=== PATIENT | female | born 1970 | race Caucasian/White ===

== ENCOUNTER 2018-03-09 11:19 | Outpatient (RCR) | payer MEDICAID, SELFPAY | END 2018-03-24 23:59 | LOC: NS 11:19 | PROVIDERS: Family Provider Internal Medicine; PCP Internal Medicine; Visit Provider Internal Medicine | DX: E66.9 Obesity, unspecified (principal); Z68.41 Body mass index [BMI] 40.0-44.9, adult; Z71.3 Dietary counseling and surveillance ==

== ENCOUNTER 2018-04-18 13:00 | Outpatient (RCR) | payer MEDICAID, SELFPAY | END 2018-04-18 23:59 | LOC: NS 13:00 | PROVIDERS: Family Provider Internal Medicine; PCP Internal Medicine; Visit Provider Internal Medicine | DX: E66.9 Obesity, unspecified (principal); Z68.41 Body mass index [BMI] 40.0-44.9, adult; Z71.3 Dietary counseling and surveillance | CPT/HCPCS: 97802 ==

== ENCOUNTER 2018-05-02 08:24 | Outpatient (RCR) | payer MEDICAID, SELFPAY | END 2018-05-24 23:59 | LOC: NS 08:24 | PROVIDERS: Family Provider Internal Medicine; PCP Internal Medicine; Visit Provider Internal Medicine | DX: E66.9 Obesity, unspecified (principal); Z68.41 Body mass index [BMI] 40.0-44.9, adult; Z71.3 Dietary counseling and surveillance ==

== ENCOUNTER 2018-05-31 13:13 | Emergency (ER) | payer MEDICAID, SELFPAY ==
[2018-05-31 13:16] VITALS: BP 151/116; PULSE 91; RESP 16; TEMP 36.6; O2SAT 94; BMI 40.6
--- NOTE | 2018-05-31 13:32 | ED.VISSUMM ---
- ER Visit Summary Date of Service: 05/31/18 Chief Complaint: Right lower leg injury History of Present Illness: The patient is a 48 F history of prior breast CA 6 years ago had a lobectomy has had no recurrence. History of hypertension and anxiety. Patient states she was working in her daughter's room on Tuesday she did not see and she stepped into the open floor vent and injured her right lower leg. She said she had bruising since that time. Today she went to the urgent care they were concerned that there might be a DVT and sent her over to the emergency department for further evaluation. Physical Examination: Well-appearing middle-age female. Initial blood pressure 151/116 otherwise vital signs stable and afebrile. H EENT exam unremarkable atraumatic. Neck nontender. Normal range of motion. Lungs clear to auscultation bilaterally. Heart regular rhythm no murmur. Rate about 90. Chest wall nontender. Abdomen soft nontender. Pelvic girdle intact. She can move all 4 extremities. Neurovascular intact. There is no gross bony deformities. Medial and inferior to her right knee down to about mid calf she has bruising. Mild tenderness. No bony deformity. No bony tenderness. She has full flexion-extension of her right hip, right knee, right ankle and foot. Dorsi and plantar flexion is intact. Achilles tendon is intact. DP pulses intact. She has normal sensation and motor strength in her right foot. There are no cords. There is no edema past or distal to the bruising. Neurologically she is awake and alert. Back is nontender. Test Results: None Emergency Department Course and Treatment: Historically and clinically this is a hematoma from an injury. I do not feel there is any findings consistent with a DVT nor I feel that a noninvasive study needs to be done. Patient has no bony tenderness is able to walk on it I offered but she deferred x-rays at this time. Treatment Plan: Ice and elevate it. Motrin for pain and swelling. Follow-up if not resolving. Disposition: Discharge Impression: Acute right lower extremity injury from a fall with soft tissue hematoma This note was generated with [employer] dictation software. It may contain incorrect words, spelling, and punctuation that were not noted in review of the chart prior to signing ED Disposition - Plan for ED Patient: Chief Complaint: Lower Extremity Injury Referrals: Tamy Garcias MD [Primary Care Provider] -
--- NOTE | 2018-05-31 13:35 | ED.DEP ---
ED Disposition - Plan for ED Patient: Disposition: Home or Assisted Living Chief Complaint: Lower Extremity Injury Instructions: ED Contusion Lower Ext, ED Hematoma Prescriptions: Naproxen [Naprosyn] 500 mg PO BID PRN PRN #20 tab PRN Reason: Pain Referrals: Tamy Garcias MD [Primary Care Provider] - As Needed Additional Instructions: Ice and elevate right leg to decrease the swelling. Over the next 2 weeks today bruising should start resolving. The swelling and bruising should improve if it is not or is looking a lot worse return and we can always get an ultrasound of your leg.
== END 2018-05-31 14:07 | disposition home or self-care (01) ==
PROVIDERS: Emergency Provider Emergency Medicine; Family Provider Internal Medicine; PCP Internal Medicine
DX: S80.11XA Contusion of right lower leg, initial encounter (principal); W17.89XA Other fall from one level to another, initial encounter; Y93.9 Activity, unspecified; Y92.003 Bedroom of unspecified non-institutional (private) residence as the place of occurrence of the external cause; Y99.9 Unspecified external cause status; I10 Essential (primary) hypertension; K21.9 Gastro-esophageal reflux disease without esophagitis; F32.9 Major depressive disorder, single episode, unspecified; F41.9 Anxiety disorder, unspecified; Z79.899 Other long term (current) drug therapy; Z85.3 Personal history of malignant neoplasm of breast
CPT/HCPCS: 99282

== ENCOUNTER → 2018-06-21 15:54 | Outpatient (CLI) | payer MEDICAID, SELFPAY ==
--- OUTSIDE RECORDS SUMMARY | 2018-08-17 02:16 | XMS RPT_ITS ---
:1970 Author Organization OHIP Care Team Providers Name Role Phone CATHY FLORES (CONDENSER TESTER) Attending Unavailable CATHY FLORES (CONDENSER TESTER) Referring Unavailable JESSICA GARCIAS Attending Unavailable CATHY FLORES (CONDENSER TESTER) Referring Unavailable PEDRO LANDIS (INVESTOR RELATIONS COORDINATOR) Attending Unavailable JESSICA GARCIAS Attending Unavailable CATHY FLORES (CONDENSER TESTER) Attending Unavailable CATHY FLORES (CONDENSER TESTER) Referring Unavailable CATHY FLORES (CONDENSER TESTER) Referring Unavailable Cathy Flores PATIENT REGISTRATION REP-C Attending Unavailable Cathy Flores PATIENT REGISTRATION REP-C Referring Unavailable Talampas, Jessica Primary Care Unavailable Talampas, Jessica Attending Unavailable Talampas, Jessica Primary Care Unavailable Talampas, Jessica Attending Unavailable Talampas, Jessica Primary Care Unavailable Talampas, Jessica Attending Unavailable Talampas, Jessica Primary Care Unavailable Talampas, Jessica Attending Unavailable Talampas, Jessica Primary Care Unavailable Talampas, Jessica Primary Care Unavailable Sathya Cole Attending Unavailable Dia, Americo Attending Unavailable Dia, Americo Referring Unavailable Talampas, Jessica Primary Care Unavailable PROBLEMS PROBLEMS DATE TYPE CONDITION / CODE ATTENDING STATUS SOURCE 05/25/2018 Unknown E66.9 - Obesity, Talampas, Jessica Active Cr unspecified / Community E66.9(ICD-10) Hospital Repository 02/28/2018 Active Lumbago with NA Active [facility] sciatica, left [place] side / Repository M54.42(ICD-10) 09/21/2016 Active Malignant NA Active [facility] neoplasm of [place] unspecified site Repository of right female breast / C50.911(ICD-10) 12/08/2017 Active Encounter for NA Active [facility] screening [place] mammogram for Repository malignant neoplasm of breast / Z12.31(ICD-10) 07/28/2017 Active Unknown / FLORES, Active [facility] UNK(Unknown) CATHY (CONDENSER TESTER) [place] Repository PROCEDURES PROCEDURES No Procedure Records FoundRESULTS RESULTS Observed: 06/21/2018 Status: F Source: [place] CULTURE, THROAT 9:55 AM [facility] REPOSITORY Culture, Throat Mixed normal throat nolan. No Haemophilus, Streptococcus pneumoniae, beta-hemolytic Streptococcus or Staphylococcus aureus isolated. Performed By: #### M100.1000 #### [facility] [address] [place], [address] EMERGENCY DEPARTMENT Observed: 05/31/2018 Status: F Source: CR SUMMARY 3:07 PM [facility] REPOSITORY [facility] Medical Records Department [address] [place] [address] Emergency Department Summary 05/31/18 1332 MR#: [id number] Acct: [id number] Name: TAMEKA BAI Rep #: [id number] : 1970 48 From: Sathya Cole MD PCP: Jessica Garcias MD Status: DEP ER - ER Visit Summary Date of Service: 05/31/18 Chief Complaint: Right lower leg injury History of Present Illness: The patient is a 48 F history of prior breast CA 6 years ago had a lobectomy has had no recurrence. History of hypertension and anxiety. Patient states she was working in her daughter's room on Tuesday she did not see and she stepped into the open floor vent and injured her right lower leg. She said she had bruising since that time. Today she went to the urgent care they were concerned that there might be a DVT and sent her over to the emergency department for further evaluation. Physical Examination: Well-appearing middle-age female. Initial blood pressure 151/116 otherwise vital signs stable and afebrile. H EENT exam unremarkable atraumatic. Neck nontender. Normal range of motion. Lungs clear to auscultation bilaterally. Heart regular rhythm no murmur. Rate about 90. Chest wall nontender. Abdomen soft nontender. Pelvic girdle intact. She can move all 4 extremities. Neurovascular intact. There is no gross bony deformities. Medial and inferior to her right knee down to about mid calf she has bruising. Mild tenderness. No bony deformity. No bony tenderness. She has full flexion-extension of her right hip, right knee, right ankle and foot. Dorsi and plantar flexion is intact. Achilles tendon is intact. DP pulses intact. She has normal sensation and motor strength in her right foot. There are no cords. There is no edema past or distal to the bruising. Neurologically she is awake and alert. Back is nontender. Test Results: None Emergency Department Course and Treatment: Historically and clinically this is a hematoma from an injury. I do not feel there is any findings consistent with a DVT nor I feel that a noninvasive study needs to be done. Patient has no bony tenderness is able to walk on it I offered but she deferred x-rays at this time. Treatment Plan: Ice and elevate it. Motrin for pain and swelling. Follow-up if not resolving. Disposition: Discharge Impression: Acute right lower extremity injury from a fall with soft tissue hematoma This note was generated with AngelPrime dictation software. It may contain incorrect words, spelling, and punctuation that were not noted in review of the chart prior to signing ED Disposition - Plan for ED Patient: Chief Complaint: Lower Extremity Injury Referrals: Jessica Garcias MD [Primary Care Provider] - What to do if you have Problems For any increased pain, shortness of breath, bleeding, nausea or vomiting, chest pain, or any unexpected problems, contact your Primary Care Provider. Call [facility] ([phone]) or report to the closest Emergency Room. Call 911 if necessary. 05/31/18 1507 <Electronically signed by Sathya Cole MD> Date Sathya Cole MD Cosigner Signature (If Indicated): Date CC: Jessica Garcias MD DISCHARGE INSTRUCTION Observed: 05/31/2018 Status: F Source: [place] 3:07 PM [facility] REPOSITORY [facility] Medical Records Department [address] [place] [id number] Discharge Instruction 05/31/18 1335 MR#: [id number] Acct: [id number] Name: TAMEKA BAI Rep #: [id number] : 1970 48 From: Sathya Cole MD PCP: Jessica Garcias MD Status: DEP ER ED Disposition - Plan for ED Patient: Disposition: Home or Assisted Living Chief Complaint: Lower Extremity Injury Instructions: ED Contusion Lower Ext, ED Hematoma Prescriptions: Naproxen [Naprosyn] 500 mg PO BID PRN PRN #20 tab PRN Reason: Pain Referrals: Jessica Garcias MD [Primary Care Provider] - As Needed Additional Instructions: Ice and elevate right leg to decrease the swelling. Over the next 2 weeks today bruising should start resolving. The swelling and bruising should improve if it is not or is looking a lot worse return and we can always get an ultrasound of your leg. What to do if you have Problems For any increased pain, shortness of breath, bleeding, nausea or vomiting, chest pain, or any unexpected problems, contact your Primary Care Provider. Call [facility] ([phone]) or report to the closest Emergency Room. Call 911 if necessary. 05/31/18 1507 <Electronically signed by Sathya Cole MD> Date Sathya Cole MD Cosigner Signature (If Indicated): Date CC: Jesscia Garcias MD PROGRESS Observed: 05/31/2018 Status: COMPLETED Source: [place] 1:14 PM [facility] REPOSITORY O ID: [id number] Author: Roxanne (Pharmacy Helper) Jonathon Service: (none) Author Type: Nurse Practitioner Type: Progress Notes Filed: 05/31/2018 1:32 PM Note Text: HPI Tameka Bai is a 48 year old female who presents today for CC of painful, warm swollen lower leg, anterior. This started 4 days ago, when she fell and has gradually worsened. Patient is concerned there is a blood clot due to warm and increasing pain. BP 132/80 Pulse 74 Temp 36.8 ?C (98.2 ?F) (Tympanic) Resp 16 Wt 100.7 kg (222 lb) BMI 39.33 kg/m? ALLERGIES Allergen Reactions - Biaxin [Clarithromy* Anaphylaxis Able to take Zpak Had throat swelling and BP drop with the Biaxin - Clindamycin Hives - Codeine Vomiting Migraine - Doxycycline Hives, Swelling - Environmental [Othe* - Imitrex [Sumatripta* Shortness of Breath CHEST PAIN - Penicillins Hives - Sulfa (Sulfonamide * Hives ACTIVE PROBLEM LIST Adjustment Disorder With Depressed Mood Family History of Malignant Neoplasm of Breast Esophageal Reflux Posttraumatic Stress Disorder Malignant Neoplasm of Female Breast (Hcc) Hyperlipidemia Back Pain Essential Hypertension, Benign Obesity (Bmi 30-39.9) Invasive Ductal Carcinoma of Right Breast in Female (Hcc) Family History Problem Relation Age of Onset - Heart Mother - Heart Father - Breast Cancer Sister 65 - Cancer Sister breast, lung and brain Breast at 32 and at 37 - Hypertension Sister - Heart Brother massive attack age 43 - Cancer Paternal Aunt ? 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 Social History Main Topics Smoking status: Never Smoker Smokeless tobacco: Never Used Alcohol use: No Comment: 8 per year, not since dx Drug use: No Sexual activity: Not Currently control/protection: Tubal Ligation PAST MEDICAL HISTORY Diagnosis Date - Acute sinusitis, unspecified - Allergic rhinitis, cause unspecified Allergic rhinitis - BRCA negative Negative Comprehensive BRCAnalysis and [facility] 12/2011 - Esophageal reflux - Essential hypertension, benign 06/14/2013 - Hyperlipidemia - Irregular menstrual cycle 2011 Irregular periods - Mild dysplasia of cervix 2002 No treatment - Other forms of migraine - Panic disorder without agoraphobia There is sweling and bruising in Right Medial Proximal Anterior Lower Leg Right Lateral Proximal Anterior Lower Leg Right Medial Distal Anterior Lower Leg There is hard hot lump in right lateral proximal anterior lower leg. ASSESSMENT/PLAN: 1. Leg swelling - ICD9: 729.81, ICD10: M79.89 Due to nature of patient's complaint and lack of investigative tools available at [facility], recommend patient be seen at nearest ED for further work up of leg swelling and pain. Patient in agreement with plan, stable to drive to ER, will go to [place] ER for further treatment. Report called to [place] [facility]. Roxanne Holt APRN.CNP CNOV Observed: 05/31/2018 Status: COMPLETED Source: [place] 1:00 PM [facility] REPOSITORY Office Visit (WSTR) TAMEKA BAI ([id number]) 1970 F Date Time Provider Department 05/31/18 1:00 PM ROXANNE HOLT (AGGIE) [facility] During your visit today, we recorded the following information about you: Temperature Pulse Respiration Blood pressure 98.2 degrees 74/minute 16/minute 132/80 Weight 100.7 kg Roxanne Holt APRN.CNP 05/31/2018 1:32 PM Addendum HPI Tamekaadilson Bai is a 48 year old female who presents today for CC of painful, warm swollen lower leg, anterior. This started 4 days ago, when she fell and has gradually worsened. Patient is concerned there is a blood clot due to warm and increasing pain. BP 132/80 Pulse 74 Temp 36.8 ?C (98.2 ?F) (Tympanic) Resp 16 Wt 100.7 kg (222 lb) BMI 39.33 kg/m? ALLERGIES Allergen Reactions - Biaxin [Clarithromy* Anaphylaxis Able to take Zpak Had throat swelling and BP drop with the Biaxin - Clindamycin Hives - Codeine Vomiting Migraine - Doxycycline Hives, Swelling - Environmental [Othe* - Imitrex [Sumatripta* Shortness of Breath CHEST PAIN - Penicillins Hives - Sulfa (Sulfonamide * Hives ACTIVE PROBLEM LIST Adjustment Disorder With Depressed Mood Family History of Malignant Neoplasm of Breast Esophageal Reflux Posttraumatic Stress Disorder Malignant Neoplasm of Female Breast (Hcc) Hyperlipidemia Back Pain Essential Hypertension, Benign Obesity (Bmi 30-39.9) Invasive Ductal Carcinoma of Right Breast in Female (Hcc) Family History Problem Relation Age of Onset - Heart Mother - Heart Father - Breast Cancer Sister 65 - Cancer Sister breast, lung and brain Breast at 32 and at 37 - Hypertension Sister - Heart Brother massive attack age 43 - Cancer Paternal Aunt ? 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 Social History Main Topics Smoking status: Never Smoker Smokeless tobacco: Never Used Alcohol use: No Comment: 8 per year, not since dx Drug use: No Sexual activity: Not Currently control/protection: Tubal Ligation PAST MEDICAL HISTORY Diagnosis Date - Acute sinusitis, unspecified - Allergic rhinitis, cause unspecified Allergic rhinitis - BRCA negative Negative Comprehensive BRCAnalysis and [facility] 12/2011 - Esophageal reflux - Essential hypertension, benign 06/14/2013 - Hyperlipidemia - Irregular menstrual cycle 2012 Irregular periods - Mild dysplasia of cervix 2002 No treatment - Other forms of migraine - Panic disorder without agoraphobia There is sweling and bruising in Right Medial Proximal Anterior Lower Leg Right Lateral Proximal Anterior Lower Leg Right Medial Distal Anterior Lower Leg There is hard hot lump in right lateral proximal anterior lower leg. ASSESSMENT/PLAN: 1. Leg swelling - ICD9: 729.81, ICD10: M79.89 Due to nature of patient's complaint and lack of investigative tools available at [facility], recommend patient be seen at nearest ED for further work up of leg swelling and pain. Patient in agreement with plan, stable to drive to ER, will go to [place] ER for further treatment. Report called to [place] [facility]. Roxanne Holt APRN.CONDENSER TESTER Referring Provider: SELF [[id number]] Allergies As of Date: 05/31/2018 Noted Allergy Reaction BIAXIN (CLARITHROMYCIN) 04/30/2005 10 - Anaphylaxis Comments: Able to take Zpak Had throat swelling and BP drop with the Biaxin CLINDAMYCIN 09/12/2006 4 - Hives CODEINE 10/05/2012 11 - Vomiting Comments: Migraine DOXYCYCLINE 07/01/2008 4 - Hives 7 - Swelling environmental [Other] 04/28/2007 IMITREX (SUMATRIPTAN SUCCINATE) 04/29/2005 12 - Shortness of Breath Comments: CHEST PAIN PENICILLINS 04/29/2005 4 - Hives SULFA (SULFONAMIDE ANTIBIOTICS) 04/29/2005 4 - Hives Date Reviewed: 05/31/2018 Reviewed by: Devi Bustillo Ma - Fully Assessed Reason for Visit: Leg Injury [1982] Cmt: right leg fell into vent x satuday Primary Visit Diagnosis:Leg swelling [M79.89] Prescriptions as of 05/31/2018 Sig: LORAZEPAM 0.5 MG TABLET Take 1 tablet by mouth once d* CARVEDILOL 3.125 MG TABLET Take 1 tablet by mouth twice * IBUPROFEN 800 MG TABLET Take 1 tablet by mouth every * ALBUTEROL SULFATE HFA 90 MCG/* Inhale 2 Puffs as instructed * SIMVASTATIN 40 MG TABLET Take 1 tablet by mouth daily * SERTRALINE 100 MG TABLET Take 1 tablet by mouth twice * LOSARTAN 50 MG TABLET Take 1 tablet by mouth once d* CETIRIZINE 10 MG TABLET Take 1 tablet by mouth once d* NYSTATIN 100,000 UNIT/GRAM TO* Apply 1 application to affect* COMPOUNDED PRESCRIPTION Why weight program for weight* COMPOUNDED PRESCRIPTION BLOOD PRESSURE CUFF FOR HOME * RANITIDINE 150 MG TABLET Take 1 tablet by mouth twice * BUPROPION HCL SR 150 MG TABLE* Take 1 tablet by mouth twice * GABAPENTIN 300 MG CAPSULE Take 1 capsule by mouth three* ESOMEPRAZOLE MAGNESIUM 40 MG * Take 1 capsule by mouth daily* ACETAMINOPHEN 500 MG TABLET Take 1,000 mg by mouth every * ZFAPBPE-NHTZMWLEH-TXGT ORAL Take 1 capsule by mouth three* ZINC 50 MG TABLET Take 50 mg by mouth once erica* CHOLECALCIFEROL (VITAMIN D3) * Take 1,000 Units by mouth onc* ASCORBIC ACID (VITAMIN C) 500* Take 500 mg by mouth once tong* LETROZOLE 2.5 MG TABLET Take 1 tablet by mouth once d* Patient not taking: Reported on 05/31/2018 Problem List As Of Date 05/31/2018 Noted Resolved ADJUSTMENT DISORDER WITH DEPRESSED MOOD [F43.21]INVALID FOR* ACUTE STRESS REACT NEC [F43.8] INVALID FOR*05/09/2006 FAMILY HX BREAST MALIG [Z80.3] INVALID FOR* ESOPHAGEAL REFLUX [K21.9] INVALID FOR* POSTTRAUMATIC STRESS DISORDER [F43.10] INVALID FOR* Excessive or frequent menstruation [N92.0] INVALID FOR*01/07/2017 Irregular menstrual cycle [N92.6] INVALID FOR*01/07/2017 Premenstrual tension syndromes [N94.3] INVALID FOR*01/07/2017 Mild dysplasia of cervix [N87.0] INVALID FOR*01/07/2017 Papanicolaou smear of cervix with atypical squa*INVALID FOR*01/07/2017 Unspecified symptom associated with female danilo*INVALID FOR*01/07/2017 Abnormal mammogram, unspecified [R92.8] INVALID FOR*01/07/2017 Malignant neoplasm of female breast (HCC) [C50.*INVALID FOR* More... 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) [D70.2] INVALID FOR*01/07/2017 Hyperlipidemia [E78.5] INVALID FOR* Back pain [M54.9] INVALID FOR* Essential hypertension, benign [I10] INVALID FOR* Obesity (BMI 30-39.9) [E66.9] INVALID FOR* Abdominal pain, unspecified site [R10.9] INVALID FOR*10/09/2014 Invasive ductal carcinoma of right breast in fe*INVALID FOR* Encounter Status:Closed by ROXANNE HOLT CNP on 05/31/18 PROGRESS Observed: 04/21/2018 Status: COMPLETED Source: [place] 7:31 PM [facility] REPOSITORY HNO ID: [id number] Author: Johann Gamble Service: (none) Author Type: Nurse Practitioner Type: Progress Notes Filed: 04/21/2018 7:41 PM Note Text: Subjective HPI Patient presents with: Ear Problem: feel plugged x 3 days Wheezing x 3 days Cough x 3 days Nasal Congestion x 3 days On clindamycin from dentist started 04/18 for abscess. ROS All other reviewed and negative other than HPI. PAST MEDICAL HISTORY Diagnosis Date - Acute sinusitis, unspecified - Allergic rhinitis, cause unspecified Allergic rhinitis - BRCA negative Negative Comprehensive BRCAnalysis and [facility] 12/2011 - Esophageal reflux - Essential hypertension, benign 06/14/2013 - Hyperlipidemia - Irregular menstrual cycle 2011 Irregular periods - Mild dysplasia of cervix 2002 No treatment - Other forms of migraine - Panic disorder without agoraphobia PAST SURGICAL HISTORY Procedure Laterality Date - BX BREAST PERC VACUUM/ROTN 02/06/10 Left, [facility] - COLONOSCOP W/ OR W/O BRSH SPEC 10/09/14 Colonoscopy - COLPOSCOPY (VAGINOSCOPY) 2002 Colposcopy - EGD W/O OR W/BRUSH/WASH 10/09/14 EGD - LIGATE FALLOPIAN TUBE 1996 Tubal ligation - MASTECTOMY, PARTIAL 12/22/11 Right Needle localization excisional breast biopsy with negative sentinel lymph node - PAST SURGICAL HISTORY OF LEFT BREAST BIOPSY benign - REMOVAL OF OVARY/TUBE(S) Bilateral 02/24/2017 laprascopic BSO ALLERGIES Biaxin [Clarithromycin]; Clindamycin; Codeine; Doxycycline; Environmental [Other]; Imitrex [Sumatriptan Succinate]; Penicillins; Sulfa (Sulfonamide Antibiotics) MEDICATIONS predniSONE (DELTASONE) 20 mg tablet Take 2 tablets by mouth once daily for 5 days. Take daily with food. Pwgpbjsfxtsjgsu-Qpahvkkdi-IF (BROMFED DM) 2-30-10 mg/5 mL syrup Take 10 mL by mouth four times daily as needed for up to 7 days. ibuprofen (MOTRIN) 800 mg tablet Take 1 tablet by mouth every 8 hours as needed for Pain. albuterol HFA (PROAIR HFA) 90 mcg/actuation inhaler Inhale 2 Puffs as instructed every 4 hours as needed. letrozole (FEMARA) 2.5 mg tablet Take 1 tablet by mouth once daily. simvastatin (ZOCOR) 40 mg tablet Take 1 tablet by mouth daily at bedtime. sertraline (ZOLOFT) 100 mg tablet Take 1 tablet by mouth twice daily. losartan (COZAAR) 50 mg tablet Take 1 tablet by mouth once daily. cetirizine (ZYRTEC) 10 mg tablet Take 1 tablet by mouth once daily. nystatin (MYCOSTATIN) powder Apply 1 application to affected area twice daily. APPLY TO AFFECTED AREA LORazepam (ATIVAN) 0.5 mg tab Take 1 tablet by mouth once daily as needed (anxiety) for up to 60 days. COMPOUNDED PRESCRIPTION Why weight program for weight loss at [facility] DX: BMI 30-39 carvedilol (COREG) 3.125 mg tablet Take 1 tablet by mouth twice daily. Blood Pressure Cuff - Home Use BLOOD PRESSURE CUFF FOR HOME USE. DX: LABILE ESSENTIAL HYPERTENSION I10 ranitidine (ZANTAC) 150 mg tablet Take 1 tablet by mouth twice daily. buPROPion SR (ZYBAN SR; WELLBUTRIN SR) 150 mg 12 hr tablet Take 1 tablet by mouth twice daily. gabapentin (NEURONTIN) 300 mg capsule Take 1 capsule by mouth three times daily. esomeprazole (NEXIUM) 40 mg capsule Take 1 capsule by mouth daily before breakfast. 1/2 hr before meal. acetaminophen (TYLENOL EXTRA STRENGTH) 500 mg tablet Take 1,000 mg by mouth every 8 hours as needed. UVSMRNS-POKNUIVHA-GEUB ORAL Take 1 capsule by mouth three times daily. Zinc 50 mg tab Take 50 mg by mouth once daily as needed. Cholecalciferol, Vitamin D3, (VITAMIN D) 1,000 unit cap Take 1,000 Units by mouth once daily. ascorbic acid (VITAMIN C) 500 mg tablet Take 500 mg by mouth once daily. FAMILY HISTORY Problem Relation Age of Onset - Heart Mother - Heart Father - Breast Cancer Sister 65 - Cancer Sister breast, lung and brain Breast at 32 and at 37 - Hypertension Sister - Heart Brother massive attack age 43 - Cancer Paternal Aunt ? type - Lipids Sister - Lipids Brother Social History Substance Use Topics - Smoking status: Never Smoker - Smokeless tobacco: Never Used - Alcohol use No Comment: 8 per year, not since dx Objective Physical Exam Constitutional: She is well-developed, well-nourished, and in no distress. HENT: Head: Normocephalic. Right Ear: External ear and ear canal normal. A middle ear effusion (small, clear) is present. Left Ear: External ear and ear canal normal. A middle ear effusion (small, clear) is present. Nose: Rhinorrhea present. Right sinus exhibits no maxillary sinus tenderness and no frontal sinus tenderness. Left sinus exhibits no maxillary sinus tenderness and no frontal sinus tenderness. Mouth/Throat: Posterior oropharyngeal erythema (PND) present. Eyes: Conjunctivae are normal. Neck: Normal range of motion. Neck supple. Cardiovascular: Normal rate, regular rhythm and normal heart sounds. Pulmonary/Chest: Effort normal and breath sounds normal. No respiratory distress. She has no wheezes. She has no rales. Abdominal: Soft. She exhibits no distension. There is no tenderness. Lymphadenopathy: She has no cervical adenopathy. Skin: Skin is warm and dry. No rash noted. Nursing note and vitals reviewed. ASSESSMENT/PLAN: 1. Viral URI with cough - ICD9: 465.9, ICD10: J06.9, B97.89 - Discussed viral etiology and rationale for treatment. - Symptomatic treatment with prn analgesia - Supportive care with fluids and rest - The patient may also use OTC decongestants prn, OTC cough and cold meds as needed, warm salt water gargles, throat lozenges and/or OTC throat spray as needed and nasal saline gtts and suction prn. - Follow up in 3-5 days if symptoms persist or sooner if worsening of symptoms Prescription instructions reviewed with patient as applicable. Patient advised if symptoms do not improve or if symptoms worsen sooner, to contact their primary care physician. Potential red flag symptoms discussed with the patient. Reviewed appropriate action plan to take if red flag symptoms occur. Patient agreeable to treatment plan. Johann Gamble APRN.CONDENSER TESTER CNOV Observed: 04/21/2018 Status: COMPLETED Source: [place] 7:00 PM [facility] REPOSITORY Office Visit (WSTR) TAMEKA BAI ([id number]) 1970 F Date Time Provider Department 04/21/18 7:00 PM JOHANN GAMBLE (PATIENT REGISTRATION REP) [facility] During your visit today, we recorded the following information about you: Temperature Pulse Blood pressure Weight 99.2 degrees 105/minute 122/80 101.2 kg Johann Gamble APRN.CNP 04/21/2018 7:22 PM Signed RESPIRATORY INFECTION GENERAL INFORMATION: An upper respiratory tract infection, or cold, is a viral infection of the airway passages. It can be caused by any one of almost 200 different viruses. Common symptoms include a runny or stuffy nose, sneezing, watery eyes, sore throat, cough, and slight fever. Colds are contagious, especially during the first 3 or 4 days and cannot be cured by antibiotics. They are spread by coughs, sneezes, and direct contact, especially [id number]. A respiratory tract infection usually clears up in a few days, but some people may be sick for a week or two. There is no cure for the common cold since colds are caused by viruses. Antibiotics don?t kill viruses so they will not make your child?s cold better. But you can help your child feel better until the cold goes away. There may also be a mild fever (under 102?F or 38.9?C) or headache. All this can make yourchild fussy too.Colds usually last about a week but can even last for 10 days. If there is fever, it should come at the start of the cold and then go away.Mucus (MYOO-kus) in your child?s nose may turn yellow or green after 3 or 4 days. Children can get one cold right after another. So it may seem like your child is sick for a long time. INSTRUCTIONS: To Help a Stuffy Nose Put a cool-mist humidifier in your child?s room. A humidifier (ashe-VSX-dk-fye-ur) puts water into the air to help clear your child?s stuffy nose. Be sure to clean the humidifier often. Thin the mucus. Use saline (saltwater) nose drops. Never use any other kind of nose drops unless your child?s doctor prescribes them. Clear your baby?s nose with a suction bulb. (This is also called an ear bulb.) Squeeze the bulb first and hold it in. Gently put the rubber tip into one nostril, and slowly release the bulb. This will suck the clogged mucus out of the nose. It works best for babies younger than 6 months. CONTACT YOUR DOCTOR IF : - Fever lasting more than 2 or 3 days - Cold symptoms that get worse, instead of better, after a week. - Trouble breathing or drinking - Ear pain - Acting very sleepy or fussy - Coughing more than 10 days RETURN IMMEDIATELY IF: 1. If cough up thick yellow, green, villalobos, or bloody sputum. 2. If having difficulty breathing, pain in the chest, or if skin or nails look villalobos or blue. 3. If shaking chills or a temperature over 102 F (39 C). SUCTIONING THE NOSE WITH A BULB SYRINGE A stuffy nose can make it hard for your baby to breathe. This can make your baby fussy, especially when he/she tries to eat or sleep. Suctioning makes it easier for your baby to breathe and eat. If needed, it is best to suction your baby's nose before a feeding or bedtime. Avoid suctioning after feeding. This may cause your baby to vomit. Before using the bulb syringe, you should thin the mucus with normal saline (salt water) nose drops as instructed below. Making Saline Nose Drops 1. Add 1/4 level teaspoon of salt to the 8 ounces (1 cup) of water. 2. Heat to boil to dissolve the salt 3. Allow to cool before using. 4. Keep the solution in a clean, covered jar. 5. Discard the solution after 1 week. Note: You may also use purchased saline nose drops. Procedure 1. Wash your hands well before and after suctioning. 2. Lay your baby on his back with head positioned facing ceiling. Have someone hold your baby in this position or swaddle your baby in a blanket with arms at their side to keep them still. 3. Using a nose dropper, drop 3-4 drops saline solution into one nostril, unless otherwise directed by your baby's doctor. Hold baby in this position for 1 minute. 4. Before placing the bulb into the nostril, push all the air out of it with your thumb on the top of the bulb. 5. Carefully and gently, place the tip of the bulb into a nostril until nostril is sealed. 6. Slowly release thumb letting the air come back into the bulb. The suction will pull the mucus out of the nose and into the bulb 7. Remove the bulb from baby's nose and squeeze mucus out of bulb into a tissue. 8. Repeat steps 3 through 8 on other nostril. You may need to suction each nostril several times to clear all the mucus. 9. Clean bulb syringe after each use with warm soapy water and rinse thoroughly. When suctioning the mouth, be sure to put the suction bulb towards the inside cheek of your child's mouth. If the bulb is placed in the middle of the mouth, your baby may gag and vomit. Make Sure Your Child Drinks Lots of Liquids Make sure your child drinks plenty of liquids to avoid getting dehydration. Clear liquids may work better than milk or formula if your child?s nose is very stuffy. A Warning About Cold and Cough Medicines The [place] [employer] strongly recommends that tpxm-sch-vqmjkbj cough and cold medications not be given to infants and children younger than 2 years because of the risk of life-threatening side effects. Also, several studies show that cold and cough products don?t work in children younger than 6 years and can have potentially serious side effects. Johann Gamble APRN.CONDENSER TESTER 04/21/2018 7:41 PM Signed Subjective HPI Patient presents with: Ear Problem: feel plugged x 3 days Wheezing x 3 days Cough x 3 days Nasal Congestion x 3 days On clindamycin from dentist started 04/18 for abscess. ROS All other reviewed and negative other than HPI. PAST MEDICAL HISTORY Diagnosis Date - Acute sinusitis, unspecified - Allergic rhinitis, cause unspecified Allergic rhinitis - BRCA negative Negative Comprehensive BRCAnalysis and [facility] 12/2011 - Esophageal reflux - Essential hypertension, benign 06/14/2013 - Hyperlipidemia - Irregular menstrual cycle 2011 Irregular periods - Mild dysplasia of cervix 2002 No treatment - Other forms of migraine - Panic disorder without agoraphobia PAST SURGICAL HISTORY Procedure Laterality Date - BX BREAST PERC VACUUM/ROTN 02/06/10 Left, [facility] - COLONOSCOP W/ OR W/O BRSH SPEC 10/09/14 Colonoscopy - COLPOSCOPY (VAGINOSCOPY) 2002 Colposcopy - EGD W/O OR W/BRUSH/WASH 10/09/14 EGD - LIGATE FALLOPIAN TUBE 1996 Tubal ligation - MASTECTOMY, PARTIAL 12/22/11 Right Needle localization excisional breast biopsy with negative sentinel lymph node - PAST SURGICAL HISTORY OF LEFT BREAST BIOPSY benign - REMOVAL OF OVARY/TUBE(S) Bilateral 02/24/2017 laprascopic BSO ALLERGIES Biaxin [Clarithromycin]; Clindamycin; Codeine; Doxycycline; Environmental [Other]; Imitrex [Sumatriptan Succinate]; Penicillins; Sulfa (Sulfonamide Antibiotics) MEDICATIONS predniSONE (DELTASONE) 20 mg tablet Take 2 tablets by mouth once daily for 5 days. Take daily with food. Czgodvijpdausjz-Jsmosaenq-QX (BROMFED DM) 2-30-10 mg/5 mL syrup Take 10 mL by mouth four times daily as needed for up to 7 days. ibuprofen (MOTRIN) 800 mg tablet Take 1 tablet by mouth every 8 hours as needed for Pain. albuterol HFA (PROAIR HFA) 90 mcg/actuation inhaler Inhale 2 Puffs as instructed every 4 hours as needed. letrozole (FEMARA) 2.5 mg tablet Take 1 tablet by mouth once daily. simvastatin (ZOCOR) 40 mg tablet Take 1 tablet by mouth daily at bedtime. sertraline (ZOLOFT) 100 mg tablet Take 1 tablet by mouth twice daily. losartan (COZAAR) 50 mg tablet Take 1 tablet by mouth once daily. cetirizine (ZYRTEC) 10 mg tablet Take 1 tablet by mouth once daily. nystatin (MYCOSTATIN) powder Apply 1 application to affected area twice daily. APPLY TO AFFECTED AREA LORazepam (ATIVAN) 0.5 mg tab Take 1 tablet by mouth once daily as needed (anxiety) for up to 60 days. COMPOUNDED PRESCRIPTION Why weight program for weight loss at [facility] DX: BMI 30-39 carvedilol (COREG) 3.125 mg tablet Take 1 tablet by mouth twice daily. Blood Pressure Cuff - Home Use BLOOD PRESSURE CUFF FOR HOME USE. DX: LABILE ESSENTIAL HYPERTENSION I10 ranitidine (ZANTAC) 150 mg tablet Take 1 tablet by mouth twice daily. buPROPion SR (ZYBAN SR; WELLBUTRIN SR) 150 mg 12 hr tablet Take 1 tablet by mouth twice daily. gabapentin (NEURONTIN) 300 mg capsule Take 1 capsule by mouth three times daily. esomeprazole (NEXIUM) 40 mg capsule Take 1 capsule by mouth daily before breakfast. 1/2 hr before meal. acetaminophen (TYLENOL EXTRA STRENGTH) 500 mg tablet Take 1,000 mg by mouth every 8 hours as needed. AYBUXBJ-XYRMLKVGW-DXZX ORAL Take 1 capsule by mouth three times daily. Zinc 50 mg tab Take 50 mg by mouth once daily as needed. Cholecalciferol, Vitamin D3, (VITAMIN D) 1,000 unit cap Take 1,000 Units by mouth once daily. ascorbic acid (VITAMIN C) 500 mg tablet Take 500 mg by mouth once daily. FAMILY HISTORY Problem Relation Age of Onset - Heart Mother - Heart Father - Breast Cancer Sister 65 - Cancer Sister breast, lung and brain Breast at 32 and at 37 - Hypertension Sister - Heart Brother massive attack age 43 - Cancer Paternal Aunt ? type - Lipids Sister - Lipids Brother Social History Substance Use Topics - Smoking status: Never Smoker - Smokeless tobacco: Never Used - Alcohol use No Comment: 8 per year, not since dx Objective Physical Exam Constitutional: She is well-developed, well-nourished, and in no distress. HENT: Head: Normocephalic. Right Ear: External ear and ear canal normal. A middle ear effusion (small, clear) is present. Left Ear: External ear and ear canal normal. A middle ear effusion (small, clear) is present. Nose: Rhinorrhea present. Right sinus exhibits no maxillary sinus tenderness and no frontal sinus tenderness. Left sinus exhibits no maxillary sinus tenderness and no frontal sinus tenderness. Mouth/Throat: Posterior oropharyngeal erythema (PND) present. Eyes: Conjunctivae are normal. Neck: Normal range of motion. Neck supple. Cardiovascular: Normal rate, regular rhythm and normal heart sounds. Pulmonary/Chest: Effort normal and breath sounds normal. No respiratory distress. She has no wheezes. She has no rales. Abdominal: Soft. She exhibits no distension. There is no tenderness. Lymphadenopathy: She has no cervical adenopathy. Skin: Skin is warm and dry. No rash noted. Nursing note and vitals reviewed. ASSESSMENT/PLAN: 1. Viral URI with cough - ICD9: 465.9, ICD10: J06.9, B97.89 - Discussed viral etiology and rationale for treatment. - Symptomatic treatment with prn analgesia - Supportive care with fluids and rest - The patient may also use OTC decongestants prn, OTC cough and cold meds as needed, warm salt water gargles, throat lozenges and/or OTC throat spray as needed and nasal saline gtts and suction prn. - Follow up in 3-5 days if symptoms persist or sooner if worsening of symptoms Prescription instructions reviewed with patient as applicable. Patient advised if symptoms do not improve or if symptoms worsen sooner, to contact their primary care physician. Potential red flag symptoms discussed with the patient. Reviewed appropriate action plan to take if red flag symptoms occur. Patient agreeable to treatment plan. Johann Gamble APRN.CONDENSER TESTER Referring Provider: SELF [[id number]] Allergies As of Date: 04/21/2018 Noted Allergy Reaction BIAXIN (CLARITHROMYCIN) 04/30/2005 10 - Anaphylaxis Comments: Able to take Zpak Had throat swelling and BP drop with the Biaxin CLINDAMYCIN 09/12/2006 4 - Hives CODEINE 10/05/2012 11 - Vomiting Comments: Migraine DOXYCYCLINE 07/01/2008 4 - Hives 7 - Swelling environmental [Other] 04/28/2007 IMITREX (SUMATRIPTAN SUCCINATE) 04/29/2005 12 - Shortness of Breath Comments: CHEST PAIN PENICILLINS 04/29/2005 4 - Hives SULFA (SULFONAMIDE ANTIBIOTICS) 04/29/2005 4 - Hives Date Reviewed: 04/21/2018 Reviewed by: Tameka Del Toro RN - Fully Assessed Reason for Visit: Ear Problem [38] Cmt: feel plugged Wheezing [181] Cough [28] Nasal Congestion [235] Primary Visit Diagnosis:Viral URI with cough [J06.9, B97.89] Order(s):predniSONE (DELTASONE) 20 mg tabletTake 2 tablets by mouth once daily for 5 days. Take daily with food.Disp: 10 tabletRfl: 0 Wajramfaesbbxeq-Pchjgzizd-BE (BROMFED DM) 2-30-10 mg/5 mL syrupTake 10 mL by mouth four times daily as needed for up to 7 days.Disp: 240 mLRfl: 0 ibuprofen (MOTRIN) 800 mg tabletTake 1 tablet by mouth every 8 hours as needed for Pain.Disp: 30 tabletRfl: 1 albuterol HFA (PROAIR HFA) 90 mcg/actuation inhalerInhale 2 Puffs as instructed every 4 hours as needed.Disp: 1 InhalerRfl: 0 Prescriptions as of 04/21/2018 Sig: PREDNISONE 20 MG TABLET Take 2 tablets by mouth once * BROMPHENIRAMINE-PSEUDOEPHEDRI* Take 10 mL by mouth four time* IBUPROFEN 800 MG TABLET Take 1 tablet by mouth every * ALBUTEROL SULFATE HFA 90 MCG/* Inhale 2 Puffs as instructed * LETROZOLE 2.5 MG TABLET Take 1 tablet by mouth once d* SIMVASTATIN 40 MG TABLET Take 1 tablet by mouth daily * SERTRALINE 100 MG TABLET Take 1 tablet by mouth twice * LOSARTAN 50 MG TABLET Take 1 tablet by mouth once d* CETIRIZINE 10 MG TABLET Take 1 tablet by mouth once d* NYSTATIN 100,000 UNIT/GRAM TO* Apply 1 application to affect* LORAZEPAM 0.5 MG TABLET Take 1 tablet by mouth once d* COMPOUNDED PRESCRIPTION Why weight program for weight* CARVEDILOL 3.125 MG TABLET Take 1 tablet by mouth twice * COMPOUNDED PRESCRIPTION BLOOD PRESSURE CUFF FOR HOME * RANITIDINE 150 MG TABLET Take 1 tablet by mouth twice * BUPROPION HCL SR 150 MG TABLE* Take 1 tablet by mouth twice * GABAPENTIN 300 MG CAPSULE Take 1 capsule by mouth three* ESOMEPRAZOLE MAGNESIUM 40 MG * Take 1 capsule by mouth daily* ACETAMINOPHEN 500 MG TABLET Take 1,000 mg by mouth every * CAKWMYL-GCZFHHVQA-RKGC ORAL Take 1 capsule by mouth three* ZINC 50 MG TABLET Take 50 mg by mouth once erica* CHOLECALCIFEROL (VITAMIN D3) * Take 1,000 Units by mouth onc* ASCORBIC ACID (VITAMIN C) 500* Take 500 mg by mouth once tong* Problem List As Of Date 04/21/2018 Noted Resolved ADJUSTMENT DISORDER WITH DEPRESSED MOOD [F43.21]INVALID FOR* ACUTE STRESS REACT NEC [F43.8] INVALID FOR*05/09/2006 FAMILY HX BREAST MALIG [Z80.3] INVALID FOR* ESOPHAGEAL REFLUX [K21.9] INVALID FOR* POSTTRAUMATIC STRESS DISORDER [F43.10] INVALID FOR* Excessive or frequent menstruation [N92.0] INVALID FOR*01/07/2017 Irregular menstrual cycle [N92.6] INVALID FOR*01/07/2017 Premenstrual tension syndromes [N94.3] INVALID FOR*01/07/2017 Mild dysplasia of cervix [N87.0] INVALID FOR*01/07/2017 Papanicolaou smear of cervix with atypical squa*INVALID FOR*01/07/2017 Unspecified symptom associated with female danilo*INVALID FOR*01/07/2017 Abnormal mammogram, unspecified [R92.8] INVALID FOR*01/07/2017 Malignant neoplasm of female breast (HCC) [C50.*INVALID FOR* More... 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) [D70.2] INVALID FOR*01/07/2017 Hyperlipidemia [E78.5] INVALID FOR* Back pain [M54.9] INVALID FOR* Essential hypertension, benign [I10] INVALID FOR* Obesity (BMI 30-39.9) [E66.9] INVALID FOR* Abdominal pain, unspecified site [R10.9] INVALID FOR*10/09/2014 Invasive ductal carcinoma of right breast in fe*INVALID FOR* Other instructions from your clinician: RESPIRATORY INFECTION GENERAL INFORMATION: An upper respiratory tract infection, or cold, is a viral infection of the airway passages. It can be caused by any one of almost 200 different viruses. Common symptoms include a runny or stuffy nose, sneezing, watery eyes, sore throat, cough, and slight fever. Colds are contagious, especially during the first 3 or 4 days and cannot be cured by antibiotics. They are spread by coughs, sneezes, and direct contact, especially xqji-fq-zxbj. A respiratory tract infection usually clears up in a few days, but some people may be sick for a week or two. There is no cure for the common cold since colds are caused by viruses. Antibiotics don?t kill viruses so they will not make your child?s cold better. But you can help your child feel better until the cold goes away. There may also be a mild fever (under 102?F or 38.9?C) or headache. All this can make yourchild fussy too.Colds usually last about a week but can even last for 10 days. If there is fever, it should come at the start of the cold and then go away.Mucus (MYOO-kus) in your child?s nose may turn yellow or green after 3 or 4 days. Children can get one cold right after another. So it may seem like your child is sick for a long time. INSTRUCTIONS: To Help a Stuffy Nose Put a cool-mist humidifier in your child?s room. A humidifier (wuwe-YGJ-ta-fye-ur) puts water into the air to help clear your child?s stuffy nose. Be sure to clean the humidifier often. Thin the mucus. Use saline (saltwater) nose drops. Never use any other kind of nose drops unless your child?s doctor prescribes them. Clear your baby?s nose with a suction bulb. (This is also called an ear bulb.) Squeeze the bulb first and hold it in. Gently put the rubber tip into one nostril, and slowly release the bulb. This will suck the clogged mucus out of the nose. It works best for babies younger than 6 months. CONTACT YOUR DOCTOR IF : - Fever lasting more than 2 or 3 days - Cold symptoms that get worse, instead of better, after a week. - Trouble breathing or drinking - Ear pain - Acting very sleepy or fussy - Coughing more than 10 days RETURN IMMEDIATELY IF: 1. If cough up thick yellow, green, villalobos, or bloody sputum. 2. If having difficulty breathing, pain in the chest, or if skin or nails look villalobos or blue. 3. If shaking chills or a temperature over 102 F (39 C). SUCTIONING THE NOSE WITH A BULB SYRINGE A stuffy nose can make it hard for your baby to breathe. This can make your baby fussy, especially when he/she tries to eat or sleep. Suctioning makes it easier for your baby to breathe and eat. If needed, it is best to suction your baby's nose before a feeding or bedtime. Avoid suctioning after feeding. This may cause your baby to vomit. Before using the bulb syringe, you should thin the mucus with normal saline (salt water) nose drops as instructed below. Making Saline Nose Drops 1. Add 1/4 level teaspoon of salt to the 8 ounces (1 cup) of water. 2. Heat to boil to dissolve the salt 3. Allow to cool before using. 4. Keep the solution in a clean, covered jar. 5. Discard the solution after 1 week. Note: You may also use purchased saline nose drops. Procedure 1. Wash your hands well before and after suctioning. 2. Lay your baby on his back with head positioned facing ceiling. Have someone hold your baby in this position or swaddle your baby in a blanket with arms at their side to keep them still. 3. Using a nose dropper, drop 3-4 drops saline solution into one nostril, unless otherwise directed by your baby's doctor. Hold baby in this position for 1 minute. 4. Before placing the bulb into the nostril, push all the air out of it with your thumb on the top of the bulb. 5. Carefully and gently, place the tip of the bulb into a nostril until nostril is sealed. 6. Slowly release thumb letting the air come back into the bulb. The suction will pull the mucus out of the nose and into the bulb 7. Remove the bulb from baby's nose and squeeze mucus out of bulb into a tissue. 8. Repeat steps 3 through 8 on other nostril. You may need to suction each nostril several times to clear all the mucus. 9. Clean bulb syringe after each use with warm soapy water and rinse thoroughly. When suctioning the mouth, be sure to put the suction bulb towards the inside cheek of your child's mouth. If the bulb is placed in the middle of the mouth, your baby may gag and vomit. Make Sure Your Child Drinks Lots of Liquids Make sure your child drinks plenty of liquids to avoid getting dehydration. Clear liquids may work better than milk or formula if your child?s nose is very stuffy. A Warning About Cold and Cough Medicines The [place] [employer] strongly recommends that ypjx-yne-xryhync cough and cold medications not be given to infants and children younger than 2 years because of the risk of life- threatening side effects. Also, several studies show that cold and cough products don?t work in children younger than 6 years and can have potentially serious side effects. Prescriptions ordered this encounter Disp Refills Start End PREDNISONE 20 MG TABLET 10 t* 0 04/21/2018 04/26/2018 Route: ORAL Sig: Take 2 tablets by mouth once daily for 5 days. Take daily with food. PKIPVMDJBNKCUOW-QLVTJUKJEFCIPLW-MZ 2* 240 * 0 04/21/2018 04/28/2018 Route: ORAL Sig: Take 10 mL by mouth four times daily as needed for up to 7 days. IBUPROFEN 800 MG TABLET 30 t* 1 04/21/2018 Route: ORAL Sig: Take 1 tablet by mouth every 8 hours as needed for Pain. ALBUTEROL SULFATE HFA 90 MCG/ACTUATI* 1 In* 0 04/21/2018 Route: INHALATION Sig: Inhale 2 Puffs as instructed every 4 hours as needed. Medications Discontinued During This Encounter ibuprofen (MOTRIN) 800 mg tablet 30 t* 1 01/13/2018 04/21/2018 Route: ORAL Sig: Take 1 tablet by mouth every 8 hours as needed for Pain. Disc: Reason for discontinue is not on file. albuterol HFA (PROAIR HFA) 90 mcg/ac* 1 In* 0 12/10/2016 04/21/2018 Route: INHALATION Sig: Inhale 2 Puffs as instructed every 4 hours as needed. Disc: Reason for discontinue is not on file. Disposition: Return if symptoms worsen or fail to improve. Follow-up and Disposition History Recorded Encounter Status:Closed by JOHANN GAMBLE on 04/21/18 XR LUMBAR 3V Observed: 02/28/2018 Status: F Source: [place] AP/LAT/L5-S1 2:55 PM [facility] REPOSITORY * * *Final Report* * * DATE OF EXAM: Feb 28 2018 2:55PM [id number] [id number] - XR LUMBAR 3V AP/LAT/L5-S1 / PROCEDURE REASON: multiple diagnoses * * * * Physician Interpretation * * * * EXAM TITLE: XR LUMBAR 3V AP/LAT/L5-S1 EXAM DATE/TIME: 02/28/2018 2:55 PM COMPARISON: None. CLINICAL INDICATION/HISTORY: Low back pain. TECHNIQUE: AP, lateral and cone down lateral views of the lumbar spine are presented. FINDINGS: There are five iep-tgk-iioflox lumbar vertebra. No fracture or subluxations are noted. The disc spaces are basically preserved. There is mild to moderate osteophyte formation. IMPRESSION: Lumbar spine degenerative changes. Special Education Aide: DARIAN Transcribe Date/Time: Feb 28 2018 3:57P Dictated by : HIRAM BAUTISTA MD This examination was interpreted and the report reviewed and electronically signed by: HIRAM BAUTISTA MD on Feb 28 2018 3:58PM EST [id number] Observed: 02/28/2018 Status: COMPLETED Source: [place] 2:49 PM [facility] REPOSITORY HNO ID: [id number] Author: Mia (Rt) Britney Almanzar Service: (none) Author Type: Interior Decorator Painting Type: Progress Notes Filed: 02/28/2018 2:56 PM Note Text: Radiology Service Progress Note PATIENT NAME: Tameka Bai DATE OF SERVICE: February 28, 2018 TIME: 2:49 PM PATIENT IDENTITY VERIFICATION COMPLETED USING TWO (2) METHODS: Patient confirmed name verbally and Date of . PATIENT GENDER DATA: Female. status: : No status: NO. PATIENT RELEVANT IMPLANT DATA REVIEWED: Not Applicable RADIOLOGY DEPARTMENT: General X-ray: Exam(s) Completed: Spine X-Ray(s): Lumbar AP / LAT / L5-S1 PERIPHERAL IV DATA: Not applicable SIGNED BY: RT Subhash February 28, 2018 2:49 PM PROGRESS Observed: 02/28/2018 Status: COMPLETED Source: [place] 2:03 PM [facility] REPOSITORY O ID: [id number] Author: Cathy Campa) Mark Service: (none) Author Type: Nurse Practitioner Type: Progress Notes Filed: 03/01/2018 8:49 AM Note Text: Chief Complaint Patient presents with: Established Patient HPI: Tameka Bai is a 47 year old female who presents here today for follow up breast cancer. DX:pT2 (2.5 cm; poorly differentiated; AL invasion negative) pN0 (None of 2 SLNs) MX ER/SD positive HER2 nonoverexpressed (IHC 1+) invasive ductal carcinoma of the right breast s/p partial mastectomy with SLN biopsy procedure 12/22/11. ?? Completed 4 cycles of TC. Completed radiation 06/23/12. ?? Started tamoxifen (06/23/12)-went off anti-depressant. Was not able to tolerate being off of antidepressant-so restarted and stopped tamoxifen. ?? Started on arimidex then stopped d/t hot flashes, joint/muscle pain. Changed to aromasin. Was receiving Zoladex . S/p BSO 03/10. ? Changed to femara. ??Began end of October 2017. ? I have noticed that my memory seems worse on this pill. I just got a root canal right before this appt. ? Appetite:good?Energy level:I have my moments. lots of family stressors-multiple family members with drug addiction. Pt. is in counseling per her report. Denies fever, chills or night sweats. Denies recent illness. Resp:+cough +seasonal?allergies h/o asthma Cardiac:denies chest pain/palpitations GI:denies abd pain, n/v, moving bowels regularly :denies dysuria/hematuria Extrem:denies pain currently, but will have occ. L low back pain after cleaning or carrying her granddaughter Endo:hot flashes-daily probably about 8 or 9 per day they do not wake her at night Neuro:neuropathy hands L>Q-ocmshe-Txcp resolved. Skin:denies rashes/lesions Heme:denies bleeding The ROS is otherwise negative. Past medical history, appointments, medications, allergies reviewed. No changes. EXAM: BP 144/100 Pulse 81 Temp 36.7 ?C (98.1 ?F) (Oral) Wt 103 kg (227 lb) BMI 40.21 kg/m? APPEARANCE Well appearing, alert, in no acute distress, well-hydrated, well nourished. HEART RRR with normal S1 and S2, no murmurs LUNG clear to auscultation BREAST FEMALE no mass/nodule b/l LYMPH NODES No cervical lymphadenopathy, No supraclavicular lymphadenopathy and No axillary lymphadenopathy. ABDOMEN bowel sounds normoactive, no bruits, soft, non-tender, non-distended, without organomegaly or palpable masses BACK no tenderness to spine, low back, full rom EXTREMITIES No edema NEURO Awake, alert and oriented x 3, Normal gait and No involuntary motions. SKIN Skin color, texture, turgor normal, no suspicious rashes or lesions RADIOLOGY: Mammogram 12/08/17: IMPRESSION: BENIGN FINDING There is no mammographic evidence of malignancy.A 1 year screening mammogram is recommended. ASSESSMENT/PLAN: 1. Invasive ductal carcinoma of right breast in female (HCC) - ICD9: 174.9, ICD10: C50.911 (primary diagnosis) pT2 (2.5 cm; poorly differentiated; AL invasion negative) pN0 (None of 2 SLNs) MX ER/SD positive HER2 nonoverexpressed (IHC 1+) invasive ductal carcinoma of the right breast s/p partial mastectomy with SLN biopsy procedure 12/22/11. 2. Left-sided low back pain with left-sided sciatica, unspecified chronicity - ICD9: 724.3, ICD10: M54.42 - ?No concerning findings on exam. - Tolerating femara fair d/t memory changes. Pt. would like to continue for now. Pt. will call office if symptoms worsen. - Bone density due November 2018. - Mammogram due November 2018. - Xray back today. - ?Follow up in 6 months. - ?Pt. aware to call office with any questions/concerns. The patient indicates understanding of these issues and agrees with the plan. Cathy Flores APRN.CNP CNOVSP Observed: 02/28/2018 Status: COMPLETED Source: [place] 2:00 PM [facility] REPOSITORY Visit (SP) Office (DILCIA) TAMEKA BAI ([id number]) 1970 F Date Time Provider Department 02/28/18 2:00 PM CATHY FLORES ([facility]) [place]C[place] During your visit today, we recorded the following information about you: Temperature Pulse Blood pressure Weight 98.1 degrees 81/minute 144/100 103 kg Cathy Flores APRN.CNP 03/01/2018 8:49 AM Signed Chief Complaint Patient presents with: Established Patient HPI: Tameka Barrerapson is a 47 year old female who presents here today for follow up breast cancer. DX:pT2 (2.5 cm; poorly differentiated; AL invasion negative) pN0 (None of 2 SLNs) MX ER/SD positive HER2 nonoverexpressed (IHC 1+) invasive ductal carcinoma of the right breast s/p partial mastectomy with SLN biopsy procedure 12/22/11. ?? Completed 4 cycles of TC. Completed radiation 06/23/12. ?? Started tamoxifen (06/23/12)-went off anti-depressant. Was not able to tolerate being off of antidepressant-so restarted and stopped tamoxifen. ?? Started on arimidex then stopped d/t hot flashes, joint/muscle pain. Changed to aromasin. Was receiving Zoladex . S/p BSO 03/10. ? Changed to femara. ??Began end of October 2017. ? I have noticed that my memory seems worse on this pill. I just got a root canal right before this appt. ? Appetite:good?Energy level:I have my moments. lots of family stressors-multiple family members with drug addiction. Pt. is in counseling per her report. Denies fever, chills or night sweats. Denies recent illness. Resp:+cough +seasonal?allergies h/o asthma Cardiac:denies chest pain/palpitations GI:denies abd pain, n/v, moving bowels regularly :denies dysuria/hematuria Extrem:denies pain currently, but will have occ. L low back pain after cleaning or carrying her granddaughter Endo:hot flashes-daily probably about 8 or 9 per day they do not wake her at night Neuro:neuropathy hands L>O-xniyxe-Mbsu resolved. Skin:denies rashes/lesions Heme:denies bleeding The ROS is otherwise negative. Past medical history, appointments, medications, allergies reviewed. No changes. EXAM: BP 144/100 Pulse 81 Temp 36.7 ?C (98.1 ?F) (Oral) Wt 103 kg (227 lb) BMI 40.21 kg/m? APPEARANCE Well appearing, alert, in no acute distress, well- hydrated, well nourished. HEART RRR with normal S1 and S2, no murmurs LUNG clear to auscultation BREAST FEMALE no mass/nodule b/l LYMPH NODES No cervical lymphadenopathy, No supraclavicular lymphadenopathy and No axillary lymphadenopathy. ABDOMEN bowel sounds normoactive, no bruits, soft, non-tender, non-distended, without organomegaly or palpable masses BACK no tenderness to spine, low back, full rom EXTREMITIES No edema NEURO Awake, alert and oriented x 3, Normal gait and No involuntary motions. SKIN Skin color, texture, turgor normal, no suspicious rashes or lesions RADIOLOGY: Mammogram 12/08/17: IMPRESSION: BENIGN FINDING There is no mammographic evidence of malignancy.A 1 year screening mammogram is recommended. ASSESSMENT/PLAN: 1. Invasive ductal carcinoma of right breast in female (HCC) - ICD9: 174.9, ICD10: C50.911 (primary diagnosis) pT2 (2.5 cm; poorly differentiated; AL invasion negative) pN0 (None of 2 SLNs) MX ER/SD positive HER2 nonoverexpressed (IHC 1+) invasive ductal carcinoma of the right breast s/p partial mastectomy with SLN biopsy procedure 12/22/11. 2. Left-sided low back pain with left-sided sciatica, unspecified chronicity - ICD9: 724.3, ICD10: M54.42 - ?No concerning findings on exam. - Tolerating femara fair d/t memory changes. Pt. would like to continue for now. Pt. will call office if symptoms worsen. - Bone density due November 2018. - Mammogram due November 2018. - Xray back today. - ?Follow up in 6 months. - ?Pt. aware to call office with any questions/concerns. The patient indicates understanding of these issues and agrees with the plan. Cathy Flores APRN.CONDENSER TESTER Referring Provider: CATHY FLORES ([facility]) [[id number]] Allergies As of Date: 02/28/2018 Noted Allergy Reaction BIAXIN (CLARITHROMYCIN) 04/30/2005 10 - Anaphylaxis Comments: Able to take Zpak Had throat swelling and BP drop with the Biaxin CLINDAMYCIN 09/12/2006 4 - Hives CODEINE 10/05/2012 11 - Vomiting Comments: Migraine DOXYCYCLINE 07/01/2008 4 - Hives 7 - Swelling environmental [Other] 04/28/2007 IMITREX (SUMATRIPTAN SUCCINATE) 04/29/2005 12 - Shortness of Breath Comments: CHEST PAIN PENICILLINS 04/29/2005 4 - Hives SULFA (SULFONAMIDE ANTIBIOTICS) 04/29/2005 4 - Hives Date Reviewed: 02/28/2018 Reviewed by: Cathy ([facility]) Mark - Fully Assessed Reason for Visit: Established Patient [175] Primary Visit Diagnosis:Invasive ductal carcinoma of right breast in female (HCC) [C50.911] Other Visit Diagnosis:Left-sided low back pain with left- sided sciatica, unspecified chronicity [M54.42] Order(s):XR LUMBAR GENERAL 3V AP/LAT/L5-S1 [[id number]] Order #: [id number] FUTURE Follow-up and Disposition History Recorded Prescriptions as of 02/28/2018 Sig: LOSARTAN 50 MG TABLET Take 1 tablet by mouth once d* CETIRIZINE 10 MG TABLET Take 1 tablet by mouth once d* NYSTATIN 100,000 UNIT/GRAM TO* Apply 1 application to affect* LORAZEPAM 0.5 MG TABLET Take 1 tablet by mouth once d* IBUPROFEN 800 MG TABLET Take 1 tablet by mouth every * COMPOUNDED PRESCRIPTION Why weight program for weight* CARVEDILOL 3.125 MG TABLET Take 1 tablet by mouth twice * COMPOUNDED PRESCRIPTION BLOOD PRESSURE CUFF FOR HOME * LETROZOLE 2.5 MG TABLET Take 1 tablet by mouth once d* RANITIDINE 150 MG TABLET Take 1 tablet by mouth twice * BUPROPION HCL SR 150 MG TABLE* Take 1 tablet by mouth twice * GABAPENTIN 300 MG CAPSULE Take 1 capsule by mouth three* SIMVASTATIN 40 MG TABLET Take 1 tablet by mouth daily * SERTRALINE 100 MG TABLET Take 1 tablet by mouth twice * ESOMEPRAZOLE MAGNESIUM 40 MG * Take 1 capsule by mouth daily* ACETAMINOPHEN 500 MG TABLET Take 1,000 mg by mouth every * ALBUTEROL SULFATE HFA 90 MCG/* Inhale 2 Puffs as instructed * YZMPVWX-ILPYDJLCZ-[id number] ORAL Take 1 capsule by mouth three* ZINC 50 MG TABLET Take 50 mg by mouth once erica* CHOLECALCIFEROL (VITAMIN D3) * Take 1,000 Units by mouth onc* ASCORBIC ACID (VITAMIN C) 500* Take 500 mg by mouth once tong* Medication notes this encounter LETROZOLE 2.5 MG TABLET >> Rossi Yeung MA 02/28/2018 2:12 PM >> ROSSI YEUNG MA Feb 28, 2018 2:12 PM Taking one tablet every other day. SIMVASTATIN 40 MG TABLET >> Rossi Yeung MA 02/28/2018 2:09 PM >> ROSSI YEUNG MA Feb 28, 2018 2:09 PM Duplicate Problem List As Of Date 02/28/2018 Noted Resolved ADJUSTMENT DISORDER WITH DEPRESSED MOOD [F43.21]INVALID FOR* ACUTE STRESS REACT NEC [F43.8] INVALID FOR*05/09/2006 FAMILY HX BREAST MALIG [Z80.3] INVALID FOR* ESOPHAGEAL REFLUX [K21.9] INVALID FOR* POSTTRAUMATIC STRESS DISORDER [F43.10] INVALID FOR* Excessive or frequent menstruation [N92.0] INVALID FOR*01/07/2017 Irregular menstrual cycle [N92.6] INVALID FOR*01/07/2017 Premenstrual tension syndromes [N94.3] INVALID FOR*01/07/2017 Mild dysplasia of cervix [N87.0] INVALID FOR*01/07/2017 Papanicolaou smear of cervix with atypical squa*INVALID FOR*01/07/2017 Unspecified symptom associated with female danilo*INVALID FOR*01/07/2017 Abnormal mammogram, unspecified [R92.8] INVALID FOR*01/07/2017 Malignant neoplasm of female breast (HCC) [C50.*INVALID FOR* More... 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) [D70.2] INVALID FOR*01/07/2017 Hyperlipidemia [E78.5] INVALID FOR* Back pain [M54.9] INVALID FOR* Essential hypertension, benign [I10] INVALID FOR* Obesity (BMI 30-39.9) [E66.9] INVALID FOR* Abdominal pain, unspecified site [R10.9] INVALID FOR*10/09/2014 Invasive ductal carcinoma of right breast in fe*INVALID FOR* Encounter Status:Closed by CATHY FLORES CNP on 03/01/18 PROGRESS Observed: 02/10/2018 Status: COMPLETED Source: [place] 12:37 PM [facility] REPOSITORY O ID: [id number] Author: Jessica Garcias Service: (none) Author Type: Physician Type: Progress Notes Filed: 02/20/2018 10:17 PM Note Text: Patient presents with: Recheck: follow up SUBJECTIVE: Tameka Bai is a 47 year old year old lady here today for 6 month follow up appointment for review of medical conditions. March 14 at 4PM with psychiatrist. Trevor Dunn at [facility] Anxiety under fair control with current management. BP had been doing better. PAST MEDICAL HISTORY Diagnosis Date - Acute sinusitis, unspecified - Allergic rhinitis, cause unspecified Allergic rhinitis - BRCA negative Negative Comprehensive BRCAnalysis and [facility] 12/2011 - Esophageal reflux - Essential hypertension, benign 06/14/2013 - Hyperlipidemia - Irregular menstrual cycle 2011 Irregular periods - Mild dysplasia of cervix 2002 No treatment - Other forms of migraine - Panic disorder without agoraphobia Current Outpatient Prescriptions: nystatin (MYCOSTATIN) powder APPLY TO AFFECTED AREA TWICE A DAY LORazepam (ATIVAN) 0.5 mg tab Take 1 tablet by mouth once daily as needed (anxiety) for up to 17 days. ibuprofen (MOTRIN) 800 mg tablet Take 1 tablet by mouth every 8 hours as needed for Pain. COMPOUNDED PRESCRIPTION Why weight program for weight loss at [facility] DX: BMI 30-39 carvedilol (COREG) 3.125 mg tablet Take 1 tablet by mouth twice daily. Blood Pressure Cuff - Home Use BLOOD PRESSURE CUFF FOR HOME USE. DX: LABILE ESSENTIAL HYPERTENSION I10 cetirizine (ZYRTEC) 10 mg tablet TAKE 1 TABLET BY MOUTH ONCE DAILY. valsartan (DIOVAN) 160 mg tablet TAKE 1 TABLET BY MOUTH ONCE DAILY. letrozole (FEMARA) 2.5 mg tablet Take 1 tablet by mouth once daily. ranitidine (ZANTAC) 150 mg tablet Take 1 tablet by mouth twice daily. buPROPion SR (ZYBAN SR; WELLBUTRIN SR) 150 mg 12 hr tablet Take 1 tablet by mouth twice daily. gabapentin (NEURONTIN) 300 mg capsule Take 1 capsule by mouth three times daily. simvastatin (ZOCOR) 40 mg tablet Take 1 tablet by mouth daily at bedtime. sertraline (ZOLOFT) 100 mg tablet Take 1 tablet by mouth twice daily. esomeprazole (NEXIUM) 40 mg capsule Take 1 capsule by mouth daily before breakfast. 1/2 hr before meal. acetaminophen (TYLENOL EXTRA STRENGTH) 500 mg tablet Take 1,000 mg by mouth every 8 hours as needed. albuterol HFA (PROAIR HFA) 90 mcg/actuation inhaler Inhale 2 Puffs as instructed every 4 hours as needed. ZEZZUEP-ZVAFZFSYV-TCBC ORAL Take 1 capsule by mouth three times daily. Zinc 50 mg tab Take 50 mg by mouth once daily as needed. Cholecalciferol, Vitamin D3, (VITAMIN D) 1,000 unit cap Take 1,000 Units by mouth once daily. ascorbic acid (VITAMIN C) 500 mg tablet Take 500 mg by mouth once daily. simvastatin (ZOCOR) 40 mg tablet Take 1 tablet by mouth daily at bedtime. (Patient not taking: Reported on 02/10/2018 ) sertraline (ZOLOFT) 100 mg tablet TAKE 1 TABLET BY MOUTH TWICE DAILY. (Patient not taking: Reported on 02/10/2018) exemestane (AROMASIN) 25 mg tablet TAKE ONE TABLET DAILY AFTER A MEAL (Patient not taking: Reported on 02/10/2018) No current facility-administered medications for this visit. OBJECTIVE: BP 118/98 Pulse 92 Resp 20 Wt 103.9 kg (229 lb) BMI 40.57 kg/m? Patient is alert, oriented times 3, no apparent distress, affect is bright, reactive. Last 5 Encounter BP Readings: Date: BP: 02/10/2018 118/98 01/13/2018 114/72 12/27/2017 146/107[BP Mendel average[ 08/08/2017 132/80 07/28/2017 139/100 Last 5 Encounter Wt Readings: Date: Wt: 02/10/2018 103.9 kg (229 lb) 01/13/2018 103.9 kg (229 lb) 08/08/2017 100.7 kg (222 lb) 07/28/2017 101.2 kg (223 lb) 03/03/2017 98 kg (216 lb) 02/10/18 1156 02/10/18 1300 BP: 118/98 118/88 Pulse: 92 Resp: 20 Weight: 103.9 kg (229 lb) Heart: Regular rate, rhythm, no murmurs, gallops, rubs. Lungs: Clear to auscultation, bilaterally, breathing non labored. Ext: No cyanosis, clubbing, or edema. ASSESSMENT AND PLAN: Encounter Diagnosis ICD-10-CM 1. Essential hypertension, benign I10 COMP METABOLIC PANEL CBC 2. Panic attacks F41.0 LORazepam (ATIVAN) 0.5 mg tab 3. Hyperlipidemia, unspecified hyperlipidemia type E78.5 simvastatin (ZOCOR) 40 mg tablet LIPID PANEL BASIC 4. Encounter for long-term current use of medication Z79.899 COMP METABOLIC PANEL CBC 5. Class 3 severe obesity due to excess calories without serious comorbidity with body mass index (BMI) of 40.0 to 44.9 in adult (HCC) E66.01 Z68.41 BP controlled. Continue present management. Panic attacks okay with current meds, including lorazepam up to 2 pils per day. Continue present management while waiting for evaluation by psychiatrist to help with adjusting meds and determining whether or not okay to continue benzodiazepine. Stable with control of anxiety. No signs of diversion or abuse of medication(s); no adverse effects. Continue present management. PDMP website checked and validated. All prescriptions have been APPROPRIATELY filled. No suspicious activity was identified. 02/20/2018 by Jessica Garcias MD Above issues addressed with patient. Patient involved in shared decision making for management of her medical issues. History and medications reviewed. Epic updated as needed Refills taken care of and meds adjusted as indicated after reviewed history, exam and labs. Health Maintenance reviewed. Updated record and/or ordered tests as recorded. Encouraged on efforts at healthy diet and regular exercise and adequate sleep. Needs to keep working on diet and exercise with lifestyle changes for effective weight loss as well as continue control of hypertension and hypercholesterolemia. Noted that BMI now just over 40. The majority of the visit was spent counseling and/or coordinating care for the patient. Vemk-ig-tvpz time was at least 25 minutes. Jessica Garcias MD CNOV Observed: 02/10/2018 Status: COMPLETED Source: [place] 11:40 AM [facility] REPOSITORY Office Visit (INTMWS) TAMEKA BAI ([id number]) 1970 F Date Time Provider Department 02/10/18 11:40 AM JESSICA GARCIAS INTM[facility] During your visit today, we recorded the following information about you: Pulse Respiration Blood pressure Weight 92/minute 20/minute 118/88 103.9 kg Jessica Garcias MD 02/20/2018 10:17 PM Signed Patient presents with: Recheck: follow up SUBJECTIVE: Tameka Doe Dmitri is a 47 year old year old lady here today for 6 month follow up appointment for review of medical conditions. March 14 at 4PM with psychiatrist. Trevor Dunn at [facility] Anxiety under fair control with current management. BP had been doing better. PAST MEDICAL HISTORY Diagnosis Date - Acute sinusitis, unspecified - Allergic rhinitis, cause unspecified Allergic rhinitis - BRCA negative Negative Comprehensive BRCAnalysis and [facility] 12/2011 - Esophageal reflux - Essential hypertension, benign 06/14/2013 - Hyperlipidemia - Irregular menstrual cycle 2011 Irregular periods - Mild dysplasia of cervix 2002 No treatment - Other forms of migraine - Panic disorder without agoraphobia Current Outpatient Prescriptions: nystatin (MYCOSTATIN) powder APPLY TO AFFECTED AREA TWICE A DAY LORazepam (ATIVAN) 0.5 mg tab Take 1 tablet by mouth once daily as needed (anxiety) for up to 17 days. ibuprofen (MOTRIN) 800 mg tablet Take 1 tablet by mouth every 8 hours as needed for Pain. COMPOUNDED PRESCRIPTION Why weight program for weight loss at [facility] DX: BMI 30-39 carvedilol (COREG) 3.125 mg tablet Take 1 tablet by mouth twice daily. Blood Pressure Cuff - Home Use BLOOD PRESSURE CUFF FOR HOME USE. DX: LABILE ESSENTIAL HYPERTENSION I10 cetirizine (ZYRTEC) 10 mg tablet TAKE 1 TABLET BY MOUTH ONCE DAILY. valsartan (DIOVAN) 160 mg tablet TAKE 1 TABLET BY MOUTH ONCE DAILY. letrozole (FEMARA) 2.5 mg tablet Take 1 tablet by mouth once daily. ranitidine (ZANTAC) 150 mg tablet Take 1 tablet by mouth twice daily. buPROPion SR (ZYBAN SR; WELLBUTRIN SR) 150 mg 12 hr tablet Take 1 tablet by mouth twice daily. gabapentin (NEURONTIN) 300 mg capsule Take 1 capsule by mouth three times daily. simvastatin (ZOCOR) 40 mg tablet Take 1 tablet by mouth daily at bedtime. sertraline (ZOLOFT) 100 mg tablet Take 1 tablet by mouth twice daily. esomeprazole (NEXIUM) 40 mg capsule Take 1 capsule by mouth daily before breakfast. 1/2 hr before meal. acetaminophen (TYLENOL EXTRA STRENGTH) 500 mg tablet Take 1,000 mg by mouth every 8 hours as needed. albuterol HFA (PROAIR HFA) 90 mcg/actuation inhaler Inhale 2 Puffs as instructed every 4 hours as needed. BMSTDRY-UMLHLREHX-HOFY ORAL Take 1 capsule by mouth three times daily. Zinc 50 mg tab Take 50 mg by mouth once daily as needed. Cholecalciferol, Vitamin D3, (VITAMIN D) 1,000 unit cap Take 1,000 Units by mouth once daily. ascorbic acid (VITAMIN C) 500 mg tablet Take 500 mg by mouth once daily. simvastatin (ZOCOR) 40 mg tablet Take 1 tablet by mouth daily at bedtime. (Patient not taking: Reported on 02/10/2018 ) sertraline (ZOLOFT) 100 mg tablet TAKE 1 TABLET BY MOUTH TWICE DAILY. (Patient not taking: Reported on 02/10/2018) exemestane (AROMASIN) 25 mg tablet TAKE ONE TABLET DAILY AFTER A MEAL (Patient not taking: Reported on 02/10/2018) No current facility-administered medications for this visit. OBJECTIVE: BP 118/98 Pulse 92 Resp 20 Wt 103.9 kg (229 lb) BMI 40.57 kg/m? Patient is alert, oriented times 3, no apparent distress, affect is bright, reactive. Last 5 Encounter BP Readings: Date: BP: 02/10/2018 118/98 01/13/2018 114/72 12/27/2017 146/107[BP Mendel average[ 08/08/2017 132/80 07/28/2017 139/100 Last 5 Encounter Wt Readings: Date: Wt: 02/10/2018 103.9 kg (229 lb) 01/13/2018 103.9 kg (229 lb) 08/08/2017 100.7 kg (222 lb) 07/28/2017 101.2 kg (223 lb) 03/03/2017 98 kg (216 lb) 02/10/18 1156 02/10/18 1300 BP: 118/98 118/88 Pulse: 92 Resp: 20 Weight: 103.9 kg (229 lb) Heart: Regular rate, rhythm, no murmurs, gallops, rubs. Lungs: Clear to auscultation, bilaterally, breathing non labored. Ext: No cyanosis, clubbing, or edema. ASSESSMENT AND PLAN: Encounter Diagnosis ICD-10-CM 1. Essential hypertension, benign I10 COMP METABOLIC PANEL CBC 2. Panic attacks F41.0 LORazepam (ATIVAN) 0.5 mg tab 3. Hyperlipidemia, unspecified hyperlipidemia type E78.5 simvastatin (ZOCOR) 40 mg tablet LIPID PANEL BASIC 4. Encounter for long-term current use of medication Z79.899 COMP METABOLIC PANEL CBC 5. Class 3 severe obesity due to excess calories without serious comorbidity with body mass index (BMI) of 40.0 to 44.9 in adult (HCC) E66.01 Z68.41 BP controlled. Continue present management. Panic attacks okay with current meds, including lorazepam up to 2 pils per day. Continue present management while waiting for evaluation by psychiatrist to help with adjusting meds and determining whether or not okay to continue benzodiazepine. Stable with control of anxiety. No signs of diversion or abuse of medication(s); no adverse effects. Continue present management. PDMP website checked and validated. All prescriptions have been APPROPRIATELY filled. No suspicious activity was identified. 02/20/2018 by Jessica Garcias MD Above issues addressed with patient. Patient involved in shared decision making for management of her medical issues. History and medications reviewed. Epic updated as needed Refills taken care of and meds adjusted as indicated after reviewed history, exam and labs. Health Maintenance reviewed. Updated record and/or ordered tests as recorded. Encouraged on efforts at healthy diet and regular exercise and adequate sleep. Needs to keep working on diet and exercise with lifestyle changes for effective weight loss as well as continue control of hypertension and hypercholesterolemia. Noted that BMI now just over 40. The majority of the visit was spent counseling and/or coordinating care for the patient. Lyrl-pp-yghu time was at least 25 minutes. Jessica Garcias MD Referring Provider: SELF [[id number]] Allergies As of Date: 02/10/2018 Noted Allergy Reaction BIAXIN (CLARITHROMYCIN) 04/30/2005 10 - Anaphylaxis Comments: Able to take Zpak Had throat swelling and BP drop with the Biaxin CLINDAMYCIN 09/12/2006 4 - Hives CODEINE 10/05/2012 11 - Vomiting Comments: Migraine DOXYCYCLINE 07/01/2008 4 - Hives 7 - Swelling environmental [Other] 04/28/2007 IMITREX (SUMATRIPTAN SUCCINATE) 04/29/2005 12 - Shortness of Breath Comments: CHEST PAIN PENICILLINS 04/29/2005 4 - Hives SULFA (SULFONAMIDE ANTIBIOTICS) 04/29/2005 4 - Hives Date Reviewed: 02/10/2018 Reviewed by: Staci Wolf LPN - Fully Assessed Reason for Visit: Recheck [92] Cmt: follow up Primary Visit Diagnosis:Essential hypertension, benign [I10] Other Visit Diagnoses:Panic attacks [F41.0] Hyperlipidemia, unspecified hyperlipidemia type [E78.5] Encounter for long-term current use of medication [Z79.899] Class 3 severe obesity due to excess calories without serious comorbidity with body mass index (BMI) of 40.0 to 44.9 in adult ([facility]) [E66.01, Z68.41] Order(s):simvastatin (ZOCOR) 40 mg tabletTake 1 tablet by mouth daily at bedtime. (is still taking med)Disp: Rfl: LORazepam (ATIVAN) 0.5 mg tabTake 1 tablet by mouth once daily as needed (anxiety) for up to 60 days.Disp: 30 tabletRfl: 1 COMP METABOLIC PANEL [SQCMP] Order #: [id number] FUTURE CBC [SQCBC] Order #: [id number] FUTURE LIPID PANEL BASIC [SQLIPB] Order #: [id number] FUTURE Prescriptions as of 02/10/2018 Sig: LORAZEPAM 0.5 MG TABLET Take 1 tablet by mouth once d* NYSTATIN 100,000 UNIT/GRAM TO* APPLY TO AFFECTED AREA TWICE * IBUPROFEN 800 MG TABLET Take 1 tablet by mouth every * COMPOUNDED PRESCRIPTION Why weight program for weight* CARVEDILOL 3.125 MG TABLET Take 1 tablet by mouth twice * COMPOUNDED PRESCRIPTION BLOOD PRESSURE CUFF FOR HOME * CETIRIZINE 10 MG TABLET TAKE 1 TABLET BY MOUTH ONCE D* VALSARTAN 160 MG TABLET TAKE 1 TABLET BY MOUTH ONCE D* LETROZOLE 2.5 MG TABLET Take 1 tablet by mouth once d* RANITIDINE 150 MG TABLET Take 1 tablet by mouth twice * BUPROPION HCL SR 150 MG TABLE* Take 1 tablet by mouth twice * GABAPENTIN 300 MG CAPSULE Take 1 capsule by mouth three* SIMVASTATIN 40 MG TABLET Take 1 tablet by mouth daily * SERTRALINE 100 MG TABLET Take 1 tablet by mouth twice * ESOMEPRAZOLE MAGNESIUM 40 MG * Take 1 capsule by mouth daily* ACETAMINOPHEN 500 MG TABLET Take 1,000 mg by mouth every * ALBUTEROL SULFATE HFA 90 MCG/* Inhale 2 Puffs as instructed * AEGUKID-EBIANQRYQ-TJZV ORAL Take 1 capsule by mouth three* ZINC 50 MG TABLET Take 50 mg by mouth once erica* CHOLECALCIFEROL (VITAMIN D3) * Take 1,000 Units by mouth onc* ASCORBIC ACID (VITAMIN C) 500* Take 500 mg by mouth once tong* SIMVASTATIN 40 MG TABLET Take 1 tablet by mouth daily * EXEMESTANE 25 MG TABLET TAKE ONE TABLET DAILY AFTER A* Patient not taking: Reported on 02/10/2018 Medication notes this encounter SIMVASTATIN 40 MG TABLET >> Jessica Garcias MD 02/10/2018 12:42 PM >> JESSICA GARCIAS MD TueFeb 10, 2018 12:42 PM Actually gets 30 days at a time >> Jessica Garcias MD 02/10/2018 12:42 PM >> JESSICA GARCIAS MD TueFeb 10, 2018 12:42 PM Suspect got RX in December with 3 RF along with BP med so will need in April SERTRALINE 100 MG TABLET >> Jessica Garcias MD 02/10/2018 12:43 PM >> JESSICA GARCIAS MD TueFeb 10, 2018 12:43 PM Should have refills till next year Problem List As Of Date 02/10/2018 Noted Resolved ADJUSTMENT DISORDER WITH DEPRESSED MOOD [F43.21]INVALID FOR* ACUTE STRESS REACT NEC [F43.8] INVALID FOR*05/09/2006 FAMILY HX BREAST MALIG [Z80.3] INVALID FOR* ESOPHAGEAL REFLUX [K21.9] INVALID FOR* POSTTRAUMATIC STRESS DISORDER [F43.10] INVALID FOR* Excessive or frequent menstruation [N92.0] INVALID FOR*01/07/2017 Irregular menstrual cycle [N92.6] INVALID FOR*01/07/2017 Premenstrual tension syndromes [N94.3] INVALID FOR*01/07/2017 Mild dysplasia of cervix [N87.0] INVALID FOR*01/07/2017 Papanicolaou smear of cervix with atypical squa*INVALID FOR*01/07/2017 Unspecified symptom associated with female danilo*INVALID FOR*01/07/2017 Abnormal mammogram, unspecified [R92.8] INVALID FOR*01/07/2017 Malignant neoplasm of female breast (HCC) [C50.*INVALID FOR* More... 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) [D70.2] INVALID FOR*01/07/2017 Hyperlipidemia [E78.5] INVALID FOR* Back pain [M54.9] INVALID FOR* Essential hypertension, benign [I10] INVALID FOR* Obesity (BMI 30-39.9) [E66.9] INVALID FOR* Abdominal pain, unspecified site [R10.9] INVALID FOR*10/09/2014 Invasive ductal carcinoma of right breast in fe*INVALID FOR* Prescriptions ordered this encounter Disp Refills Start End SIMVASTATIN 40 MG TABLET 02/10/2018 Class: Med Update Route: ORAL Sig: Take 1 tablet by mouth daily at bedtime. (is still taking med) LORAZEPAM 0.5 MG TABLET 30 t* 1 02/10/2018 2018 Class: Print RX Cmt: This RX is for 30 pills for 30 days with 1 RF to last 60 days Route: ORAL Sig: Take 1 tablet by mouth once daily as needed (anxiety) for up to 60 days. Medications Discontinued During This Encounter simvastatin (ZOCOR) 40 mg tablet 30 t* 3 01/10/2018 02/10/2018 Route: ORAL Sig: Take 1 tablet by mouth daily at bedtime. Patient not taking: Reported on 02/10/2018 Disc: Reason for discontinue is not on file. sertraline (ZOLOFT) 100 mg tablet 60 t* 11 12/06/2017 02/10/2018 Sig: TAKE 1 TABLET BY MOUTH TWICE DAILY. Patient not taking: Reported on 02/10/2018 Disc: Reason for discontinue is not on file. LORazepam (ATIVAN) 0.5 mg tab 17 t* 0 01/24/2018 02/10/2018 Class: Print RX Route: ORAL Sig: Take 1 tablet by mouth once daily as needed (anxiety) for up to 17 days. Disc: Reason for discontinue is not on file. Disposition: Return in about 6 months (around 08/13/2018) for 6 months follow up, With labs prior. Follow-up and Disposition History Recorded Encounter Status:Closed by JESSICA GARCIAS MD on 02/20/18 URINALYSIS WITH Collected: 01/13/2018 Status: F Source: [facility] MICROSCOPIC 2:45 PM [facility] REPOSITORY TYPE CODE TESTS RESULT OUT OF RANGE REFERENCE UNITS LAB UCOL Yellow Color Yellow LAB [facility] Clear Clarity Abnormal Cloudy Alert LAB UGLUC Negative mg/dL Glucose, Urine Negative LAB UBIL Negative Bilirubin, Urine Negative LAB UKET Negative Ketones, Urine Negative LAB [facility] 1.005-1.030 Specific [place], Ur 1.015 LAB UHGB Negative Hemoglobin/Blood, Negative Ur LAB UPH 4.5-8.0 pH 6.0 LAB UPROT Negative mg/dL Protein, Urine Negative LAB UUROB Normal Urobilinogen Normal LAB UNITR Negative Nitrites Negative LAB ULKEST Negative Leukest Abnormal 2+ Alert LAB UCOM Comments SEE COMMENT Result Comment: N/A LAB UMCOM Urine SEE Gil Comment COMMENT Result Comment: Result rechecked. LAB UWBC 0-5 /HPF WBC 0-5 LAB URBC 0-3 /HPF RBC 0-3 LAB UEPI /HPF Epithelial SEE Cells COMMENT Result Comment: Few Squamous Epithelial Cells Few Non-Squamous Epithelial Cells Performed By: #### UAWMIC #### [facility] [address] [address] Observed: 01/13/2018 Status: F Source: [place] URINE CULTURE 2:45 PM [facility] REPOSITORY Sp. Request/Comment: - Specimen received in preservative Culture Result - 10,000 - <50,000 CFU/ml Streptococcus agalactiae (Group B streptococcus) --> ABNORMAL ALERT Susceptibility testing not performed on beta hemolytic streptococci due to predictable susceptibility to penicillin and other beta lactams. For testing, call Microbiology within 72 hours. --> ABNORMAL ALERT Performed By: #### URCUL #### [facility] [address] [place], [place] [address] PROGRESS Observed: 01/13/2018 Status: COMPLETED Source: [place] 2:36 PM [facility] REPOSITORY HNO ID: [id number] Author: Pedro Velazco) Boby Service: (none) Author Type: Nurse Specialist Type: Progress Notes Filed: 01/13/2018 3:04 PM Note Text: OUTPATIENT VISIT DATE January 13, 2018 OUTPATIENT VISIT TYPE ESTABLISHED PRIMARY CARE PHYSICIAN: Jessica Garcias MD CHIEF COMPLAINT: Patient presents with: UTI History of Present Illness: Tameka Bai is a 47 year old female who was last seen 07/2017 by Jessica Garcias MD. She has been seen in the past for ACTIVE PROBLEM LIST Adjustment Disorder With Depressed Mood Family History of Malignant Neoplasm of Breast Esophageal Reflux Posttraumatic Stress Disorder Malignant Neoplasm of Female Breast (Hcc) Hyperlipidemia Back Pain Essential Hypertension, Benign Obesity (Bmi 30-39.9) Invasive Ductal Carcinoma of Right Breast in Female (Hcc) Tameka Bai is a 47 year old female who presents with complaint for the last few days of urinary frequency, feeling of incomplete emptying, slight increased odor. Low back pain. No fever at home. Some nausea. Occasional incontinence since hysterectomy with oophorectomy reported. No report of fever , nausea, vomiting and vaginal discharge. No recent hospital or ED visits. No new medical problems or medications. Able to obtain medications. No problems with taking medications or note side effects. PAST MEDICAL HISTORY Diagnosis Date - Acute sinusitis, unspecified - Allergic rhinitis, cause unspecified Allergic rhinitis - BRCA negative Negative Comprehensive BRCAnalysis and [facility] 12/2011 - Esophageal reflux - Essential hypertension, benign 06/14/2013 - Hyperlipidemia - Irregular menstrual cycle 2011 Irregular periods - Mild dysplasia of cervix 2002 No treatment - Other forms of migraine - Panic disorder without agoraphobia PAST SURGICAL HISTORY Procedure Laterality Date - BX BREAST PERC VACUUM/ROTN 02/06/10 Left, Microcalcs - COLONOSCOP W/ OR W/O BRSH SPEC 10/09/14 Colonoscopy - COLPOSCOPY (VAGINOSCOPY) 2002 Colposcopy - EGD W/O OR W/BRUSH/WASH 10/09/14 EGD - LIGATE FALLOPIAN TUBE 1996 Tubal ligation - MASTECTOMY, PARTIAL 12/22/11 Right Needle localization excisional breast biopsy with negative sentinel lymph node - PAST SURGICAL HISTORY OF LEFT BREAST BIOPSY benign - REMOVAL OF OVARY/TUBE(S) Bilateral 02/24/2017 laprascopic BSO FAMILY HISTORY Problem Relation Age of Onset - Heart Mother - Heart Father - Breast Cancer Sister 65 - Cancer Sister breast, lung and brain Breast at 32 and at 37 - Hypertension Sister - Heart Brother massive attack age 43 - Cancer Paternal Aunt ? type - Lipids Sister - Lipids Brother Social History Substance Use Topics - Smoking status: Never Smoker - Smokeless tobacco: Never Used - Alcohol use No Comment: 8 per year, not since dx ALLERGIES: ALLERGIES Allergen Reactions - Biaxin [Clarithromy* Anaphylaxis Able to take Zpak Had throat swelling and BP drop with the Biaxin - Clindamycin Hives - Codeine Vomiting Migraine - Doxycycline Hives, Swelling - Environmental [Othe* - Imitrex [Sumatripta* Shortness of Breath CHEST PAIN - Penicillins Hives - Sulfa (Sulfonamide * Hives MEDICATIONS COMPOUNDED PRESCRIPTION Why weight program for weight loss at [facility] DX: BMI 30-39 simvastatin (ZOCOR) 40 mg tablet Take 1 tablet by mouth daily at bedtime. carvedilol (COREG) 3.125 mg tablet Take 1 tablet by mouth twice daily. LORazepam (ATIVAN) 0.5 mg tab Take 1 tablet by mouth once daily as needed (anxiety) for up to 14 days. nystatin (MYCOSTATIN) powder APPLY TO AFFECTED AREA TWICE A DAY Blood Pressure Cuff - Home Use BLOOD PRESSURE CUFF FOR HOME USE. DX: LABILE ESSENTIAL HYPERTENSION I10 sertraline (ZOLOFT) 100 mg tablet TAKE 1 TABLET BY MOUTH TWICE DAILY. cetirizine (ZYRTEC) 10 mg tablet TAKE 1 TABLET BY MOUTH ONCE DAILY. valsartan (DIOVAN) 160 mg tablet TAKE 1 TABLET BY MOUTH ONCE DAILY. letrozole (FEMARA) 2.5 mg tablet Take 1 tablet by mouth once daily. ranitidine (ZANTAC) 150 mg tablet Take 1 tablet by mouth twice daily. buPROPion SR (ZYBAN SR; WELLBUTRIN SR) 150 mg 12 hr tablet Take 1 tablet by mouth twice daily. gabapentin (NEURONTIN) 300 mg capsule Take 1 capsule by mouth three times daily. simvastatin (ZOCOR) 40 mg tablet Take 1 tablet by mouth daily at bedtime. sertraline (ZOLOFT) 100 mg tablet Take 1 tablet by mouth twice daily. esomeprazole (NEXIUM) 40 mg capsule Take 1 capsule by mouth daily before breakfast. 1/2 hr before meal. acetaminophen (TYLENOL EXTRA STRENGTH) 500 mg tablet Take 1,000 mg by mouth every 8 hours as needed. exemestane (AROMASIN) 25 mg tablet TAKE ONE TABLET DAILY AFTER A MEAL albuterol HFA (PROAIR HFA) 90 mcg/actuation inhaler Inhale 2 Puffs as instructed every 4 hours as needed. [id number] ORAL Take 1 capsule by mouth three times daily. Zinc 50 mg tab Take 50 mg by mouth once daily as needed. Cholecalciferol, Vitamin D3, (VITAMIN D) 1,000 unit cap Take 1,000 Units by mouth once daily. ascorbic acid (VITAMIN C) 500 mg tablet Take 500 mg by mouth once daily. ciprofloxacin HCl (CIPRO) 500 mg tablet Take 1 tablet by mouth twice daily for 5 days. ibuprofen (MOTRIN) 800 mg tablet Take 1 tablet by mouth every 8 hours as needed for Pain. REVIEW OF SYSTEMS: GENERAL: Negative for: Weight loss or gain, Fever or Chills, Weakness and Sleep difficulties. Physical Examination: BP 114/72 Pulse 78 Resp 16 Wt 229 lb (103.9kg) BP w/Orthostatic Vitals Date and Time Orthostatic BP Orthostatic Pulse BP Pulse BP Position BP Site BP Cuff Size 01/13/18 1432 -- -- 114/72 -- -- -- -- General appearance: Well appearing, alert, in no acute distress, well-hydrated, well nourished. Skin: Skin color, texture, turgor normal, no suspicious rashes or lesions Neuro: Gait normal. Sensation grossly intact. Reviewed chart, outside records, tests I personally interviewed, confirmed and edited the above information if obtained by others. TESTING: Glucose (mg/dL) Date Value 08/08/2017 90 Potassium (mmol/L) Date Value 08/08/2017 3.8 Sodium (mmol/L) Date Value 08/08/2017 140 Chloride (mmol/L) Date Value 08/08/2017 101 CO2 (mmol/L) Date Value 08/08/2017 25 Creatinine (mg/dL) Date Value 08/08/2017 0.91 BUN (mg/dL) Date Value 08/08/2017 11 Anion Gap (mmol/L) Date Value 08/08/2017 14 Calcium (mg/dL) Date Value 08/08/2017 9.4 Glucose (mg/dL) Date Value 08/08/2017 90 Potassium (mmol/L) Date Value 08/08/2017 3.8 Sodium (mmol/L) Date Value 08/08/2017 140 Chloride (mmol/L) Date Value 08/08/2017 101 CO2 (mmol/L) Date Value 08/08/2017 25 Creatinine (mg/dL) Date Value 08/08/2017 0.91 BUN (mg/dL) Date Value 08/08/2017 11 Anion Gap (mmol/L) Date Value 08/08/2017 14 Calcium (mg/dL) Date Value 08/08/2017 9.4 Protein, Total (g/dL) Date Value 08/08/2017 7.6 Albumin (g/dL) Date Value 08/08/2017 4.2 Bilirubin, Total (mg/dL) Date Value 08/08/2017 0.4 Alkaline Phosphatase (U/L) Date Value 08/08/2017 133 AST (U/L) Date Value 08/08/2017 20 ALT (U/L) Date Value 08/08/2017 26 Hemoglobin (g/dL) Date Value 08/08/2017 12.7 Hematocrit (%) Date Value 08/08/2017 41.3 WBC (k/uL) Date Value 08/08/2017 6.97 Cholesterol, Total (mg/dL) Date Value 08/08/2017 267 HDL Cholesterol (mg/dL) Date Value 08/08/2017 46 LDL Cholesterol (mg/dL) Date Value 08/08/2017 167 Triglyceride (mg/dL) Date Value 08/08/2017 270 No results found for: HBA1C Ejection Fraction: No results found IMPRESSION: Ms. Bai is a 47 year old woman presents with report of UTI symptoms. After my examination and review of data, I make the following recommendations. PLAN AND RECOMMENDATIONS: 1. UTI symptoms - ICD9: 788.99, ICD10: R39.9 - UA DIP B/O - URINALYSIS WITH MICROSCOPIC - URINE CULTURE - CIPROFLOXACIN 500 MG TABLET Advised to go to ER if develops chest pain, shortness of breath, or severe worsening of symptoms. Discussed risks, benefits, alternatives, and potential side effects of medications. Ms. Bai expressed understanding and agreed with the plan. Pedro Landis APRN.HAILEY CNOV Observed: 01/13/2018 Status: COMPLETED Source: [facility] 2:20 PM [facility] REPOSITORY Office Visit (INTMWS) TAMEKA BAI ([id number]) 1970 F Date Time Provider Department 01/13/18 2:20 PM PEDRO LANDIS ([facility]) INTMWS During your visit today, we recorded the following information about you: Pulse Respiration Blood pressure Weight 78/minute 16/minute 114/72 103.9 kg Pedro Landis APRN.INVESTOR RELATIONS COORDINATOR 01/13/2018 3:04 PM Signed OUTPATIENT VISIT DATE January 13, 2018 OUTPATIENT VISIT TYPE ESTABLISHED PRIMARY CARE PHYSICIAN: Jessica Garcias MD CHIEF COMPLAINT: Patient presents with: UTI History of Present Illness: Tameka Bai is a 47 year old female who was last seen 07/2017 by Jessica Garcias MD. She has been seen in the past for ACTIVE PROBLEM LIST Adjustment Disorder With Depressed Mood Family History of Malignant Neoplasm of Breast Esophageal Reflux Posttraumatic Stress Disorder Malignant Neoplasm of Female Breast (Hcc) Hyperlipidemia Back Pain Essential Hypertension, Benign Obesity (Bmi 30-39.9) Invasive Ductal Carcinoma of Right Breast in Female (Hcc) Tameka Bai is a 47 year old female who presents with complaint for the last few days of urinary frequency, feeling of incomplete emptying, slight increased odor. Low back pain. No fever at home. Some nausea. Occasional incontinence since hysterectomy with oophorectomy reported. No report of fever , nausea, vomiting and vaginal discharge. No recent hospital or ED visits. No new medical problems or medications. Able to obtain medications. No problems with taking medications or note side effects. PAST MEDICAL HISTORY Diagnosis Date - Acute sinusitis, unspecified - Allergic rhinitis, cause unspecified Allergic rhinitis - BRCA negative Negative Comprehensive BRCAnalysis and [facility] 12/2011 - Esophageal reflux - Essential hypertension, benign 06/14/2013 - Hyperlipidemia - Irregular menstrual cycle 2011 Irregular periods - Mild dysplasia of cervix 2002 No treatment - Other forms of migraine - Panic disorder without agoraphobia PAST SURGICAL HISTORY Procedure Laterality Date - BX BREAST PERC VACUUM/ROTN 02/06/10 Left, Microcalcs - COLONOSCOP W/ OR W/O BRSH SPEC 10/09/14 Colonoscopy - COLPOSCOPY (VAGINOSCOPY) 2002 Colposcopy - EGD W/O OR W/BRUSH/WASH 10/09/14 EGD - LIGATE FALLOPIAN TUBE 1996 Tubal ligation - MASTECTOMY, PARTIAL 12/22/11 Right Needle localization excisional breast biopsy with negative sentinel lymph node - PAST SURGICAL HISTORY OF LEFT BREAST BIOPSY benign - REMOVAL OF OVARY/TUBE(S) Bilateral 02/24/2017 laprascopic BSO FAMILY HISTORY Problem Relation Age of Onset - Heart Mother - Heart Father - Breast Cancer Sister 65 - Cancer Sister breast, lung and brain Breast at 32 and at 37 - Hypertension Sister - Heart Brother massive attack age 43 - Cancer Paternal Aunt ? type - Lipids Sister - Lipids Brother Social History Substance Use Topics - Smoking status: Never Smoker - Smokeless tobacco: Never Used - Alcohol use No Comment: 8 per year, not since dx ALLERGIES: ALLERGIES Allergen Reactions - Biaxin [Clarithromy* Anaphylaxis Able to take Zpak Had throat swelling and BP drop with the Biaxin - Clindamycin Hives - Codeine Vomiting Migraine - Doxycycline Hives, Swelling - Environmental [Othe* - Imitrex [Sumatripta* Shortness of Breath CHEST PAIN - Penicillins Hives - Sulfa (Sulfonamide * Hives MEDICATIONS COMPOUNDED PRESCRIPTION Why weight program for weight loss at [facility] DX: BMI 30-39 simvastatin (ZOCOR) 40 mg tablet Take 1 tablet by mouth daily at bedtime. carvedilol (COREG) 3.125 mg tablet Take 1 tablet by mouth twice daily. LORazepam (ATIVAN) 0.5 mg tab Take 1 tablet by mouth once daily as needed (anxiety) for up to 14 days. nystatin (MYCOSTATIN) powder APPLY TO AFFECTED AREA TWICE A DAY Blood Pressure Cuff - Home Use BLOOD PRESSURE CUFF FOR HOME USE. DX: LABILE ESSENTIAL HYPERTENSION I10 sertraline (ZOLOFT) 100 mg tablet TAKE 1 TABLET BY MOUTH TWICE DAILY. cetirizine (ZYRTEC) 10 mg tablet TAKE 1 TABLET BY MOUTH ONCE DAILY. valsartan (DIOVAN) 160 mg tablet TAKE 1 TABLET BY MOUTH ONCE DAILY. letrozole (FEMARA) 2.5 mg tablet Take 1 tablet by mouth once daily. ranitidine (ZANTAC) 150 mg tablet Take 1 tablet by mouth twice daily. buPROPion SR (ZYBAN SR; WELLBUTRIN SR) 150 mg 12 hr tablet Take 1 tablet by mouth twice daily. gabapentin (NEURONTIN) 300 mg capsule Take 1 capsule by mouth three times daily. simvastatin (ZOCOR) 40 mg tablet Take 1 tablet by mouth daily at bedtime. sertraline (ZOLOFT) 100 mg tablet Take 1 tablet by mouth twice daily. esomeprazole (NEXIUM) 40 mg capsule Take 1 capsule by mouth daily before breakfast. 1/2 hr before meal. acetaminophen (TYLENOL EXTRA STRENGTH) 500 mg tablet Take 1,000 mg by mouth every 8 hours as needed. exemestane (AROMASIN) 25 mg tablet TAKE ONE TABLET DAILY AFTER A MEAL albuterol HFA (PROAIR HFA) 90 mcg/actuation inhaler Inhale 2 Puffs as instructed every 4 hours as needed. [id number] ORAL Take 1 capsule by mouth three times daily. Zinc 50 mg tab Take 50 mg by mouth once daily as needed. Cholecalciferol, Vitamin D3, (VITAMIN D) 1,000 unit cap Take 1,000 Units by mouth once daily. ascorbic acid (VITAMIN C) 500 mg tablet Take 500 mg by mouth once daily. ciprofloxacin HCl (CIPRO) 500 mg tablet Take 1 tablet by mouth twice daily for 5 days. ibuprofen (MOTRIN) 800 mg tablet Take 1 tablet by mouth every 8 hours as needed for Pain. REVIEW OF SYSTEMS: GENERAL: Negative for: Weight loss or gain, Fever or Chills, Weakness and Sleep difficulties. Physical Examination: BP 114/72 Pulse 78 Resp 16 Wt 229 lb (103.9kg) BP w/Orthostatic Vitals Date and Time Orthostatic BP Orthostatic Pulse BP Pulse BP Position BP Site BP Cuff Size 01/13/18 1432 -- -- 114/72 -- -- -- -- General appearance: Well appearing, alert, in no acute distress, well-hydrated, well nourished. Skin: Skin color, texture, turgor normal, no suspicious rashes or lesions Neuro: Gait normal. Sensation grossly intact. Reviewed chart, outside records, tests I personally interviewed, confirmed and edited the above information if obtained by others. TESTING: Glucose (mg/dL) Date Value 08/08/2017 90 Potassium (mmol/L) Date Value 08/08/2017 3.8 Sodium (mmol/L) Date Value 08/08/2017 140 Chloride (mmol/L) Date Value 08/08/2017 101 CO2 (mmol/L) Date Value 08/08/2017 25 Creatinine (mg/dL) Date Value 08/08/2017 0.91 BUN (mg/dL) Date Value 08/08/2017 11 Anion Gap (mmol/L) Date Value 08/08/2017 14 Calcium (mg/dL) Date Value 08/08/2017 9.4 Glucose (mg/dL) Date Value 08/08/2017 90 Potassium (mmol/L) Date Value 08/08/2017 3.8 Sodium (mmol/L) Date Value 08/08/2017 140 Chloride (mmol/L) Date Value 08/08/2017 101 CO2 (mmol/L) Date Value 08/08/2017 25 Creatinine (mg/dL) Date Value 08/08/2017 0.91 BUN (mg/dL) Date Value 08/08/2017 11 Anion Gap (mmol/L) Date Value 08/08/2017 14 Calcium (mg/dL) Date Value 08/08/2017 9.4 Protein, Total (g/dL) Date Value 08/08/2017 7.6 Albumin (g/dL) Date Value 08/08/2017 4.2 Bilirubin, Total (mg/dL) Date Value 08/08/2017 0.4 Alkaline Phosphatase (U/L) Date Value 08/08/2017 133 AST (U/L) Date Value 08/08/2017 20 ALT (U/L) Date Value 08/08/2017 26 Hemoglobin (g/dL) Date Value 08/08/2017 12.7 Hematocrit (%) Date Value 08/08/2017 41.3 WBC (k/uL) Date Value 08/08/2017 6.97 Cholesterol, Total (mg/dL) Date Value 08/08/2017 267 HDL Cholesterol (mg/dL) Date Value 08/08/2017 46 LDL Cholesterol (mg/dL) Date Value 08/08/2017 167 Triglyceride (mg/dL) Date Value 08/08/2017 270 No results found for: HBA1C Ejection Fraction: No results found IMPRESSION: Ms. Bai is a 47 year old woman presents with report of UTI symptoms. After my examination and review of data, I make the following recommendations. PLAN AND RECOMMENDATIONS: 1. UTI symptoms - ICD9: 788.99, ICD10: R39.9 - UA DIP B/O - URINALYSIS WITH MICROSCOPIC - URINE CULTURE - CIPROFLOXACIN 500 MG TABLET Advised to go to ER if develops chest pain, shortness of breath, or severe worsening of symptoms. Discussed risks, benefits, alternatives, and potential side effects of medications. Ms. Bai expressed understanding and agreed with the plan. Pedro Landis APRN.INVESTOR RELATIONS COORDINATOR Referring Provider: SELF [[id number]] Allergies As of Date: 01/13/2018 Noted Allergy Reaction BIAXIN (CLARITHROMYCIN) 04/30/2005 10 - Anaphylaxis Comments: Able to take Zpak Had throat swelling and BP drop with the Biaxin CLINDAMYCIN 09/12/2006 4 - Hives CODEINE 10/05/2012 11 - Vomiting Comments: Migraine DOXYCYCLINE 07/01/2008 4 - Hives 7 - Swelling environmental [Other] 04/28/2007 IMITREX (SUMATRIPTAN SUCCINATE) 04/29/2005 12 - Shortness of Breath Comments: CHEST PAIN PENICILLINS 04/29/2005 4 - Hives SULFA (SULFONAMIDE ANTIBIOTICS) 04/29/2005 4 - Hives Date Reviewed: 01/13/2018 Reviewed by: Liv Malik) NESTOR Foss - Fully Assessed Reason for Visit: UTI [116] Primary Visit Diagnosis:UTI symptoms [R39.9] Order(s):UA DIP B/O [1558813] Order #: [id number] URINALYSIS WITH MICROSCOPIC [SQUAWMIC] Order #: [id number] URINE CULTURE [SQURCUL] Order #: [id number] ciprofloxacin HCl (CIPRO) 500 mg tabletTake 1 tablet by mouth twice daily for 5 days.Disp: 10 tabletRfl: 0 ibuprofen (MOTRIN) 800 mg tabletTake 1 tablet by mouth every 8 hours as needed for Pain.Disp: 30 tabletRfl: 1 Prescriptions as of 01/13/2018 Sig: COMPOUNDED PRESCRIPTION Why weight program for weight* SIMVASTATIN 40 MG TABLET Take 1 tablet by mouth daily * CARVEDILOL 3.125 MG TABLET Take 1 tablet by mouth twice * LORAZEPAM 0.5 MG TABLET Take 1 tablet by mouth once d* NYSTATIN 100,000 UNIT/GRAM TO* APPLY TO AFFECTED AREA TWICE * COMPOUNDED PRESCRIPTION BLOOD PRESSURE CUFF FOR HOME * SERTRALINE 100 MG TABLET TAKE 1 TABLET BY MOUTH TWICE * CETIRIZINE 10 MG TABLET TAKE 1 TABLET BY MOUTH ONCE D* VALSARTAN 160 MG TABLET TAKE 1 TABLET BY MOUTH ONCE D* LETROZOLE 2.5 MG TABLET Take 1 tablet by mouth once d* RANITIDINE 150 MG TABLET Take 1 tablet by mouth twice * BUPROPION HCL SR 150 MG TABLE* Take 1 tablet by mouth twice * GABAPENTIN 300 MG CAPSULE Take 1 capsule by mouth three* SIMVASTATIN 40 MG TABLET Take 1 tablet by mouth daily * SERTRALINE 100 MG TABLET Take 1 tablet by mouth twice * ESOMEPRAZOLE MAGNESIUM 40 MG * Take 1 capsule by mouth daily* ACETAMINOPHEN 500 MG TABLET Take 1,000 mg by mouth every * EXEMESTANE 25 MG TABLET TAKE ONE TABLET DAILY AFTER A* ALBUTEROL SULFATE HFA 90 MCG/* Inhale 2 Puffs as instructed * [id number]-[id number]-NHAN ORAL Take 1 capsule by mouth three* ZINC 50 MG TABLET Take 50 mg by mouth once erica* CHOLECALCIFEROL (VITAMIN D3) * Take 1,000 Units by mouth onc* ASCORBIC ACID (VITAMIN C) 500* Take 500 mg by mouth once tong* CIPROFLOXACIN 500 MG TABLET Take 1 tablet by mouth twice * IBUPROFEN 800 MG TABLET Take 1 tablet by mouth every * Problem List As Of Date 01/13/2018 Noted Resolved ADJUSTMENT DISORDER WITH DEPRESSED MOOD [F43.21]INVALID FOR* ACUTE STRESS REACT NEC [F43.8] INVALID FOR*05/09/2006 FAMILY HX BREAST MALIG [Z80.3] INVALID FOR* ESOPHAGEAL REFLUX [K21.9] INVALID FOR* POSTTRAUMATIC STRESS DISORDER [F43.10] INVALID FOR* Excessive or frequent menstruation [N92.0] INVALID FOR*01/07/2017 Irregular menstrual cycle [N92.6] INVALID FOR*01/07/2017 Premenstrual tension syndromes [N94.3] INVALID FOR*01/07/2017 Mild dysplasia of cervix [N87.0] INVALID FOR*01/07/2017 Papanicolaou smear of cervix with atypical squa*INVALID FOR*01/07/2017 Unspecified symptom associated with female danilo*INVALID FOR*01/07/2017 Abnormal mammogram, unspecified [R92.8] INVALID FOR*01/07/2017 Malignant neoplasm of female breast (HCC) [C50.*INVALID FOR* More... 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) [D70.2] INVALID FOR*01/07/2017 Hyperlipidemia [E78.5] INVALID FOR* Back pain [M54.9] INVALID FOR* Essential hypertension, benign [I10] INVALID FOR* Obesity (BMI 30-39.9) [E66.9] INVALID FOR* Abdominal pain, unspecified site [R10.9] INVALID FOR*10/09/2014 Invasive ductal carcinoma of right breast in fe*INVALID FOR* Prescriptions ordered this encounter Disp Refills Start End CIPROFLOXACIN 500 MG TABLET 10 t* 0 01/13/2018 01/18/2018 Route: ORAL Sig: Take 1 tablet by mouth twice daily for 5 days. IBUPROFEN 800 MG TABLET 30 t* 1 01/13/2018 Route: ORAL Sig: Take 1 tablet by mouth every 8 hours as needed for Pain. Encounter Status:Closed by PEDRO NAIR on 01/13/18 PROGRESS Observed: 12/27/2017 Status: COMPLETED Source: [place] 2:24 PM [facility] REPOSITORY O ID: [id number] Author: Phoebe Garcia LPN Service: (none) Author Type: (none) Type: Progress Notes Filed: 12/27/2017 2:38 PM Note Text: Manual Readin/106 Pulse: 92 BP Mendel average: 146/107 P: 97 Repeat BP Check: 144/112 P97 #1 147/109 P98 #2 149/108 P102 #3 148/110 P96 #4 144/105 P95 #5 143/104 P96 #6 Reason for blood pressure check - Last BP elevated Patient is: Taking medication as prescribed Yes Took medication today Yes If no, date medication last taken N/A Experiencing side effects No BP has elevated at home. Taking all medications as prescribed. Denies any chest pain, shortness of breath, dizziness, or headaches. Daily caffeine use. No personal history of tobacco use; no current exposure. Alert and oriented. Pt has been identified by name and birthdate: Yes Allergies reviewed: Yes Latex allergy: no. Medication - prescribed and OTC reviewed and updated: Yes Do you need any prescription refills prior to your next visit: No Health Maintenance: Reviewed and up to date Patient advised that she would be contacted after review by PCP. Phoebe Garcia LPN CNNURSE Observed: 12/27/2017 Status: COMPLETED Source: [place] 2:15 PM [facility] REPOSITORY Nurse Visit (FAMPWS) TAMEKA BAI ([id number]) 1970 F Date Time Provider Department 12/27/17 2:15 PM [facility] your visit today, we recorded the following information about you: Pulse Blood pressure 97/minute 146/107 Phoebe Garcia LPN 12/27/2017 2:38 PM Signed Manual Readin/106 Pulse: 92 BP Mendel average: 146/107 P: 97 Repeat BP Check: 144/112 P97 #1 147/109 P98 #2 149/108 P102 #3 148/110 P96 #4 144/105 P95 #5 143/104 P96 #6 Reason for blood pressure check - Last BP elevated Patient is: Taking medication as prescribed Yes Took medication today Yes If no, date medication last taken N/A Experiencing side effects No BP has elevated at home. Taking all medications as prescribed. Denies any chest pain, shortness of breath, dizziness, or headaches. Daily caffeine use. No personal history of tobacco use; no current exposure. Alert and oriented. Pt has been identified by name and birthdate: Yes Allergies reviewed: Yes Latex allergy: no. Medication - prescribed and OTC reviewed and updated: Yes Do you need any prescription refills prior to your next visit: No Health Maintenance: Reviewed and up to date Patient advised that she would be contacted after review by PCP. Phoebe Garcia LPN Allergies As of Date: 12/27/2017 Noted Allergy Reaction BIAXIN (CLARITHROMYCIN) 04/30/2005 10 - Anaphylaxis Comments: Able to take Zpak Had throat swelling and BP drop with the Biaxin CLINDAMYCIN 09/12/2006 4 - Hives CODEINE 10/05/2012 11 - Vomiting Comments: Migraine DOXYCYCLINE 07/01/2008 4 - Hives 7 - Swelling environmental [Other] 04/28/2007 IMITREX (SUMATRIPTAN SUCCINATE) 04/29/2005 12 - Shortness of Breath Comments: CHEST PAIN PENICILLINS 04/29/2005 4 - Hives SULFA (SULFONAMIDE ANTIBIOTICS) 04/29/2005 4 - Hives Date Reviewed: 08/08/2017 Reviewed by: Cristela Shepherd [employer] - Fully Assessed Reason for Visit: Blood Pressure Check [195] Primary Visit Diagnosis:Essential hypertension, benign [I10] Prescriptions as of 12/27/2017 Sig: LORAZEPAM 0.5 MG TABLET Take 1 tablet by mouth once d* COMPOUNDED PRESCRIPTION BLOOD PRESSURE CUFF FOR HOME * SERTRALINE 100 MG TABLET TAKE 1 TABLET BY MOUTH TWICE * NYSTOP 100,000 UNIT/GRAM TOPI* APPLY TO AFFECTED AREA TWICE * CETIRIZINE 10 MG TABLET TAKE 1 TABLET BY MOUTH ONCE D* VALSARTAN 160 MG TABLET TAKE 1 TABLET BY MOUTH ONCE D* LETROZOLE 2.5 MG TABLET Take 1 tablet by mouth once d* RANITIDINE 150 MG TABLET Take 1 tablet by mouth twice * BUPROPION HCL SR 150 MG TABLE* Take 1 tablet by mouth twice * GABAPENTIN 300 MG CAPSULE Take 1 capsule by mouth three* SIMVASTATIN 40 MG TABLET Take 1 tablet by mouth daily * SERTRALINE 100 MG TABLET Take 1 tablet by mouth twice * ESOMEPRAZOLE MAGNESIUM 40 MG * Take 1 capsule by mouth daily* ACETAMINOPHEN 500 MG TABLET Take 1,000 mg by mouth every * EXEMESTANE 25 MG TABLET TAKE ONE TABLET DAILY AFTER A* ALBUTEROL SULFATE HFA 90 MCG/* Inhale 2 Puffs as instructed * [id number]-[id number] ORAL Take 1 capsule by mouth three* ZINC 50 MG TABLET Take 50 mg by mouth once erica* CHOLECALCIFEROL (VITAMIN D3) * Take 1,000 Units by mouth onc* ASCORBIC ACID (VITAMIN C) 500* Take 500 mg by mouth once tong* Problem List As Of Date 12/27/2017 Noted Resolved ADJUSTMENT DISORDER WITH DEPRESSED MOOD [F43.21]INVALID FOR* ACUTE STRESS REACT NEC [F43.8] INVALID FOR*05/09/2006 FAMILY HX BREAST MALIG [Z80.3] INVALID FOR* ESOPHAGEAL REFLUX [K21.9] INVALID FOR* POSTTRAUMATIC STRESS DISORDER [F43.10] INVALID FOR* Excessive or frequent menstruation [N92.0] INVALID FOR*01/07/2017 Irregular menstrual cycle [N92.6] INVALID FOR*01/07/2017 Premenstrual tension syndromes [N94.3] INVALID FOR*01/07/2017 Mild dysplasia of cervix [N87.0] INVALID FOR*01/07/2017 Papanicolaou smear of cervix with atypical squa*INVALID FOR*01/07/2017 Unspecified symptom associated with female danilo*INVALID FOR*01/07/2017 Abnormal mammogram, unspecified [R92.8] INVALID FOR*01/07/2017 Malignant neoplasm of female breast (HCC) [C50.*INVALID FOR* More... 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) [D70.2] INVALID FOR*01/07/2017 Hyperlipidemia [E78.5] INVALID FOR* Back pain [M54.9] INVALID FOR* Essential hypertension, benign [I10] INVALID FOR* Obesity (BMI 30-39.9) [E66.9] INVALID FOR* Abdominal pain, unspecified site [R10.9] INVALID FOR*10/09/2014 Invasive ductal carcinoma of right breast in fe*INVALID FOR* Encounter Status:Closed by PHOEBE GARCIA LPN on 12/27/17 CNCO Observed: 12/08/2017 Status: COMPLETED Source: [place] 4:02 PM [facility] REPOSITORY HNO ID: [id number] Author: Mammography Coordinator Service: (none) Author Type: Physician Type: Letter Filed: 12/12/2017 11:32 PM Note Text: December 08, 2017 PID: [id number] Tameka Bai [address] [place] [address] Dear Ms. Bai, We are pleased to inform you that the results of your recent breast imaging exam on 12/08/2017 are normal. Your mammogram demonstrates that you have dense breast tissue, which could hide abnormalities. Dense breast tissue, in and of itself, is a relatively common condition. Therefore, this information is not provided to cause undue concern; rather, it is to raise your awareness and promote discussion with your health care provider regarding the presence of dense breast tissue in addition to other risk factors. Early detection of cancer is very important. We also understand recommendations regarding breast cancer screening are controversial. Please discuss with your primary care provider which strategy is best for you and whether a mammogram is right for you. Your imaging studies and report will be kept on file at [facility] as part of your permanent medical record and are available for your continuing care. Thank you for allowing us to help in meeting your health care needs. Sincerely, Dr. Jean Interpreting Radiologist [facility] (Normal over 40) PROGRESS Observed: 12/08/2017 Status: COMPLETED Source: [place] 3:48 PM [facility] REPOSITORY HNO ID: [id number] Author: Radha Villanueva Service: (none) Author Type: (none) Type: Progress Notes Filed: 12/08/2017 3:49 PM Note Text: Radiology Service Progress Note PATIENT NAME: Tameka Bai DATE OF SERVICE: December 08, 2017 TIME: 3:48 PM PATIENT IDENTITY VERIFICATION COMPLETED USING TWO (2) METHODS: Patient confirmed name verbally and Date of . PATIENT GENDER DATA: Female. status: : No status: NO. PATIENT RELEVANT IMPLANT DATA REVIEWED: Not Applicable RADIOLOGY DEPARTMENT: [facility] DATA: Not applicable SIGNED BY: Radha Villanueva December 08, 2017 3:48 PM CHRISTIANO SCREENING Observed: 12/08/2017 Status: F Source: [place] 3:38 PM [facility] REPOSITORY * * *Final Report* * * DATE OF EXAM: Dec 08 2017 3:38PM [facility] 0581 - [facility] SCREENING / PROCEDURE REASON: multiple diagnoses * * * * Physician Interpretation * * * * RESULT: #[id number] - [facility] SCREENING BILATERAL DIGITAL SCREENING MAMMOGRAM WITH CAD: 12/08/2017 HISTORY: Multiple Diagnoses\ Screening Mammogram - patient reports NO breast symptoms /SEE TECH NOTE /priors available for comparison. RESULT: TECHNIQUE: The study was acquired using full field digital technology and interpreted from soft copy. Current study was also evaluated with a Computer Aided Detection (CAD). Comparison is made to exams dated: 12/06/2016 mammogram, 11/19/2015 mammogram, 04/10/2015 mammogram, and 11/13/2014 mammogram - [facility]. The tissue of both breasts is heterogeneously dense. This may lower the sensitivity of mammography. The patient is status post lumpectomy right breast. The right breast has post-operative findings. No significant masses, calcifications, or other findings are seen in either breast. IMPRESSION: BENIGN FINDING There is no mammographic evidence of malignancy.A 1 year screening mammogram is recommended. Bob Jean M.D. pt/antonyrad:12/08/2017 16:02:19 Poising Inspector: Radha VILLANUEVA(Lynn)(M), [facility] letter sent: Normal over 40 Mammogram BI-RADS: 2 Benign finding Special Education Aide: Jovita Transcribe Date/Time: Dec 08 2017 3:39P Dictated by: BOB JEAN MD This examination was interpreted and the report reviewed and electronically signed by: BOB JEAN MD on Dec 08 2017 4:02PM EST [id number] CBC Collected: 08/08/2017 Status: F Source: [place] 3:16 PM [facility] REPOSITORY TYPE CODE TESTS RESULT OUT OF REFERENCE UNITS RANGE LAB WBC 3.70-11.00 k/uL WBC 6.97 LAB RBC 3.90-5.20 m/uL RBC High 5.28 LAB HGB 11.5-15.5 g/dL Hemoglobin 12.7 LAB HCT 36.0-46.0 % Hematocrit 41.3 LAB MCV 80.0-100.0 fL Low MCV 78.2 LAB MCH 26.0-34.0 pG Low MCH 24.1 LAB MCHC 30.5-36.0 g/dL MCHC 30.8 LAB RDWCV 11.5-15.0 % RDW-CV High 15.1 LAB PLTCT 150-400 k/uL Platelet Count 185 LAB MPV 9.0-12.7 fL MPV 10.1 LAB ABSNUC <0.01 k/uL Absolute nRBC <0.01 Performed By: #### CBC, CMP, LIPB, MG1 #### [facility] [address] [place], [place] [address] COMP METABOLIC PANEL Collected: 08/08/2017 Status: F Source: [place] 3:16 PM [facility] REPOSITORY TYPE CODE TESTS RESULT OUT OF REFERENCE UNITS RANGE LAB TP 6.3-8.0 g/dL Protein, Total 7.6 LAB ALB 3.9-4.9 g/dL Albumin 4.2 LAB CA 8.5-10.2 mg/dL Calcium, Total 9.4 LAB TBIL 0.2-1.3 mg/dL Bilirubin, Total 0.4 LAB ALKP 32-117 U/L Alkaline High Phosphatase 133 LAB AST 13-35 U/L AST 20 LAB GLU 74-99 mg/dL Glucose 90 Result Comment: The [place] Diabetes Association (ADA) provides guidance for cutoff values for fasting glucose and random glucose. The ADA defines fasting as no caloric intake for at least 8 hours. Fas ting plasma glucose results between 100 to 125 mg/dL indicate increased risk for diabetes (prediabetes). Fasting plasma glucose results greater than or equal to 126 mg/dL meet the criteria for diagnosis of diabetes. In the absence of unequivocal hyperglycemia, results should be confirmed by repeat testing. In a patient with classic symptoms of hyperglycemia or hyperglycemic crisis, random plasma glucose results greater than or equal to 200 mg/dL meet the criteria for diagnosis of diabetes. Reference: Standards of Medical Care in Diabetes 2016, [place] [employer] Association. Diabetes Care. 2016.39(Suppl 1). LAB BUN 7-21 mg/dL BUN 11 LAB CRET 0.58-0.96 mg/dL Creatinine 0.91 LAB NA 136-144 mmol/L Sodium 140 LAB K 3.7-5.1 mmol/L Potassium 3.8 LAB CL 97-105 mmol/L Chloride 101 LAB CO2 22-30 mmol/L CO2 25 LAB AGAP 9-18 mmol/L Anion Gap 14 LAB ALT 7-38 U/L ALT 26 LAB GFRAA eGFR- Amer. >60 LAB GFRNAA . eGFR-All Other Races >60 Result Comment: eGFR (Estimated GFR) Units of measure: mL/min/1.73 meters squared eGFR is derived from the reexpressed MDRD Study equation using the following parameters: serum creatinine, age, gender and race. The creatinine assay has been calibrated to be traceable to IDMS. An eGFR <60 mL/min/1.73m2 for >3 months is consistent with chronic kidney disease. Refer to KDOQI guidelines for clinical interpretation. In patients with unstable renal function, e.g. those with acute kidney injury, the eGFR may not accurately reflect actual GFR. Performed By: #### CBC, CMP, LIPB, MG1 #### [facility] [address] [place], [place] [address] LIPID PANEL, BASIC Collected: 08/08/2017 Status: F Source: [place] 3:16 PM [facility] REPOSITORY TYPE CODE TESTS RESULT OUT OF REFERENCE UNITS RANGE LAB CHOL <200 mg/dL Cholesterol High 267 Result Comment: <200 mg/dL, Desirable 200-239 mg/dL, Borderline high >239 mg/dL, High LAB TRIGLY <150 mg/dL Triglyceride High 270 Result Comment: <150 mg/dL, Normal 150-199 mg/dL, Borderline high 200-499 mg/dL, High >499 mg/dL, Very high LAB HDL >39 mg/dL HDL-Cholesterol 46 Result Comment: 40-59 mg/dL, Acceptable >59 mg/dL, High: Negative risk factor for coronary heart disease <40 mg/dL, Low: Positive risk factor for coronary heart disease LAB LDL <100 mg/dL LDL-Cholesterol High 167 Result Comment: <100 mg/dL, Optimal 100-129 mg/dL, Near optimal/above optimal 130-159 mg/dL, Borderline high 160-189 mg/dL, High >189 mg/dL, Very high Secondary prevention optimal LDL Cholesterol levels are recommended to be < 70 mg/dL LAB NONHDL <130 mg/dL Non HDL High Cholesterol 221 Result Comment: <130 mg/dL, Optimal 130-159 mg/dL, Near optimal/above optimal 160-189 mg/dL, Borderline high 190-219 mg/dL, High >219 mg/dL, Very high Secondary prevention optimal non HDL Cholesterol levels are recommended to be < 100 mg/dL LAB FT hrs Fasting Time 4 LAB VLDL <30 mg/dL High VLDL Cholesterol 54 LAB TCHDL <5.10 High TC:HDL Ratio 5.80 LAB LDLHDL <2.54 High LDL:HDL Ratio 3.63 Result Comment: Reference: 1. National Cholesterol Education Program ATP III Guideline At-A-Glance Quick Desk Reference: National Heart, Lung, and Blood [place]. National Institutes of Health. 2001: NIH Publication No. 01-3305. 2. An International Atherosclerosis Society position paper: global recommendations for the management of dyslipidemia: executive summary, Atherosclerosis. 2014: 232(2):410-413. Performed By: #### CBC, CMP, LIPB, MG1 #### [facility] [address] [place], [place] [address] MAGNESIUM Collected: 08/08/2017 Status: F Source: [place] 3:16 PM [facility] [place] REPOSITORY TYPE CODE TESTS RESULT OUT OF REFERENCE UNITS RANGE LAB MG 1.7-2.3 mg/dL Magnesium 2.1 Performed By: #### CBC, CMP, LIPB, MG1 #### [facility] [address] [place], [place] [address] PROGRESS Observed: 08/08/2017 Status: COMPLETED Source: [place] 2:34 PM [facility] [place] REPOSITORY HNO ID: [id number] Author: Jessica Garcias Service: (none) Author Type: Physician Type: Progress Notes Filed: 08/22/2017 11:09 PM Note Text: HISTORY Tameka Bai is a 47 year old lady here for yearly exam and follow up appointment. Post-surgical menopause. Plans on regular exercise. Taking gabapentin for neuropathy. Thumb on right gets painful and does no want to bend. GERD issues noted. PAST MEDICAL HISTORY Diagnosis Date - Acute sinusitis, unspecified - Allergic rhinitis, cause unspecified Allergic rhinitis - BRCA negative Negative Comprehensive BRCAnalysis and GALINA 12/2011 - Esophageal reflux - Hyperlipidemia - Irregular menstrual cycle 2011 Irregular periods - Mild dysplasia of cervix 2002 No treatment - Other forms of migraine - Panic disorder without agoraphobia Current Outpatient Prescriptions: sertraline (ZOLOFT) 100 mg tablet Take 1 tablet by mouth twice daily. esomeprazole magnesium (NEXIUM 24HR) 20 mg TbEC Take 1 tablet by mouth once daily. cetirizine (ZYRTEC) 10 mg tablet TAKE 1 TABLET BY MOUTH ONCE DAILY. valsartan (DIOVAN) 160 mg tablet Take 1 tablet by mouth once daily. simvastatin (ZOCOR) 40 mg tablet Take 1 tablet by mouth daily at bedtime. gabapentin (NEURONTIN) 300 mg capsule Take 1 capsule by mouth three times daily. buPROPion SR (ZYBAN SR; WELLBUTRIN SR) 150 mg 12 hr tablet Take 1 tablet by mouth twice daily. acetaminophen (TYLENOL EXTRA STRENGTH) 500 mg tablet Take 1,000 mg by mouth every 8 hours as needed. ranitidine (ZANTAC) 150 mg tablet TAKE 1 TABLET BY MOUTH TWICE DAILY IN ADDITION TO PREVACID exemestane (AROMASIN) 25 mg tablet TAKE ONE TABLET DAILY AFTER A MEAL nystatin (MYCOSTATIN) powder APPLY TO AFFECTED AREA TWICE DAILY. albuterol HFA (PROAIR HFA) 90 mcg/actuation inhaler Inhale 2 Puffs as instructed every 4 hours as needed. RFACJLE-FZQCATHOY-ESFM ORAL Take 1 capsule by mouth three times daily. Zinc 50 mg tab Take 50 mg by mouth once daily as needed. Cholecalciferol, Vitamin D3, (VITAMIN D) 1,000 unit cap Take 1,000 Units by mouth once daily. ascorbic acid (VITAMIN C) 500 mg tablet Take 500 mg by mouth once daily. No current facility-administered medications for this visit. ALLERGIES Allergen Reactions - Biaxin [Clarithromy* Anaphylaxis Able to take Zpak Had throat swelling and BP drop with the Biaxin - Clindamycin Hives - Codeine Vomiting Migraine - Doxycycline Hives, Swelling - Imitrex [Sumatripta* Shortness of Breath CHEST PAIN - Penicillins Hives - Sulfa (Sulfonamide * Hives - Environmental [Othe* FAMILY HISTORY Problem Relation Age of Onset - Heart Mother - Heart Father - Breast Cancer Sister 65 - Cancer Sister breast, lung and brain Breast at 32 and at 37 - Hypertension Sister - Heart Brother massive attack age 43 - Cancer Paternal Aunt ? 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 PHYSICAL EXAMINATION: Blood pressure 132/80, pulse 98, resp. rate 18, height 160 cm (5' 3), weight 100.7 kg (222 lb). Last 5 Encounter BP Readings: Date: BP: 08/08/2017 132/80 07/28/2017 139/100 03/03/2017 128/88 02/10/2017 130/86 01/26/2017 136/100 Last 5 Encounter Wt Readings: Date: Wt: 08/08/2017 100.7 kg (222 lb) 07/28/2017 101.2 kg (223 lb) 03/03/2017 98 kg (216 lb) 02/10/2017 96.6 kg (213 lb) 01/26/2017 97.8 kg (215 lb 8 oz) General appearance: well appearing, in no acute distress, well-hydrated, well nourished Skin: Skin color, texture, turgor normal. No significant rashes or lesions. Head: Normal Eyes: Anicteric sclera. Pupils are equally round and reactive to light. Extraocular movements are intact. Ears: External ears normal. Canals clear. TM's unremarkable. Nose/Sinuses: negative Oropharynx: Lips, mucosa, and tongue normal. Teeth and gums normal. Oropharynx normal. Neck: Neck supple, no adenopathy; thyroid symmetric, normal size, no bruits. Lungs: Lungs clear to auscultation Heart: negative. RRR without murmur, gallop, or rubs. No ectopy. Abdomen: Abdomen soft, non-tender. Bowel sounds normal. No masses, organomegaly Extremities: Extremities normal. No deformities, edema, or skin discoloration. Good capillary refill. Musculoskeletal: grossly normal Peripheral pulses: Normal Neuro: Gait normal. Reflexes normal and symmetric. Sensation grossly intact. No gross focal neurological deficits. Labs reviewed. ASSESSMENT AND PLAN See diagnoses and orders Encounter Diagnosis ICD-10-CM 1. Essential hypertension, benign I10 COMP METABOLIC PANEL CBC 2. Obesity (BMI 30-39.9) E66.9 3. Back pain, unspecified back location, unspecified back pain laterality, unspecified chronicity M54.9 gabapentin (NEURONTIN) 300 mg capsule 4. Adjustment disorder with depressed mood F43.21 5. Hyperlipidemia, unspecified hyperlipidemia type E78.5 LIPID PANEL BASIC 6. Gastroesophageal reflux disease, esophagitis presence not specified K21.9 7. Need for vaccination Z23 INFLUENZA VACCINE QUADRIVALENT AGE 3 YRS PLUS + IM 8. Encounter for long-term current use of medication Z79.899 COMP METABOLIC PANEL CBC MAGNESIUM BLD Above issues addressed with patient. Patient involved in shared decision making for management of her medical issues. History and medications reviewed. Epic updated as needed Continue present management. Further evaluation and treatment as indicated. Refills taken care of and meds adjusted as indicated after reviewed history, exam and labs. Health Maintenance reviewed. Updated record and/or ordered tests as recorded. Encouraged on efforts at healthy diet and regular exercise and adequate sleep. Needs to keep working on diet and exercise with lifestyle changes for effective weight loss. Noted weight crept up. Discussed need to improve diet and exercise. Granddtr due 08/13 The majority of the visit was spent counseling and/or coordinating care for the patient. Nixj-fl-cjgn time was at least 40 minutes. Jessica Garcias MD PROGRESS Observed: 08/08/2017 Status: COMPLETED Source: [place] 2:12 PM [facility] REPOSITORY O ID: [id number] Author: Cristela Shepherd Cma Service: (none) Author Type: (none) Type: Progress Notes Filed: 08/22/2017 11:09 PM Note Text: 47 year old female here for INACTIVATED INFLUENZA VACCINE. 4344-1929 Season Patient is identified by name and date of : Yes [] CONTRAINDICATIONS color enhanced section Age less than 6 months? No Allergy to eggs, chicken, chicken feathers, or chicken dander? No Allergy to thimerosal (a preservative) or formaldehyde? No History of severe reaction to any vaccine component or a previous dose of influenza vaccination? No History of Guillain-[place] Syndrome within 6 weeks after a previous influenza vaccine? No Current moderate or severe illness? No Current temperature greater or equal to 100.4F? No History of Bone Marrow Transplant in past 6 months or solid organ transplant in the past 3 months ? No [] VERIFICATION color enhanced section Was the answer Yes for any of the above contraindications? No contraindications present. Acceptable to proceed with vaccine. Patient/guardian agrees the above answers are true to the best of their knowledge? Yes Flu vaccine information sheet given? Yes See immunization activity in [facility] for details of immunizations adminstered today. Patient age: [age] year old For The 8661-3624 Flu Season 6-35 months old: Fluzone 0.25 ml - IM (Preservative Free) 3 years of age: Fluzone 0.5 ml - IM (Preservative Free) 3 years and older: Fluzone 0.5 ml- IM-(with Preservatives) 65+ years old: Fluzone High-Dose 0.5 ml - IM (Preservative Free) REMEMBER: If patient is less than 9 years of age and this is the first vaccine of Influenza to be received in any flu season, they should receive a second dose in one months time. CNOV Observed: 08/08/2017 Status: COMPLETED Source: [place] 1:40 PM [facility] REPOSITORY Office Visit (INTMWS) TAMEKA BAI ([id number]) 1970 F Date Time Provider Department 08/08/17 1:40 PM JESSICA GARCIAS INTMWS During your visit today, we recorded the following information about you: Pulse Respiration Blood pressure Weight 98/minute 18/minute 132/80 100.7 kg Height 1.6 m Cristela Shepherd [facility] 08/22/2017 11:09 PM Signed 47 year old female here for INACTIVATED INFLUENZA VACCINE. Season Patient is identified by name and date of : Yes [] CONTRAINDICATIONS color enhanced section Age less than 6 months? No Allergy to eggs, chicken, chicken feathers, or chicken dander? No Allergy to thimerosal (a preservative) or formaldehyde? No History of severe reaction to any vaccine component or a previous dose of influenza vaccination? No History of Guillain-Gal[place] Syndrome within 6 weeks after a previous influenza vaccine? No Current moderate or severe illness? No Current temperature greater or equal to 100.4F? No History of Bone Marrow Transplant in past 6 months or solid organ transplant in the past 3 months ? No [] VERIFICATION color enhanced section Was the answer ANDquot;YesANDquot; for any of the above contraindications? No contraindications present. Acceptable to proceed with vaccine. Patient/guardian agrees the above answers are true to the best of their knowledge? Yes Flu vaccine information sheet given? Yes See immunization activity in [facility] for details of immunizations adminstered today. Patient age: [age] year old For The [id number] Flu Season 6-35 months old: Fluzone 0.25 ml - IM (Preservative Free) 3 years of age: Fluzone 0.5 ml - IM (Preservative Free) 3 years and older: Fluzone 0.5 ml- IM-(with Preservatives) 65+ years old: Fluzone High-Dose 0.5 ml - IM (Preservative Free) REMEMBER: If patient is less than 9 years of age and this is the first vaccine of Influenza to be received in any flu season, they should receive a second dose in one months time. Jessica Garcias MD 08/22/2017 11:09 PM Signed HISTORY Tameka Bai is a 47 year old lady here for yearly exam and follow up appointment. Post-surgical menopause. Plans on regular exercise. Taking gabapentin for neuropathy. Thumb on right gets painful and does no want to bend. GERD issues noted. PAST MEDICAL HISTORY Diagnosis Date - Acute sinusitis, unspecified - Allergic rhinitis, cause unspecified Allergic rhinitis - BRCA negative Negative Comprehensive BRCAnalysis and [facility] 12/2011 - Esophageal reflux - Hyperlipidemia - Irregular menstrual cycle 2011 Irregular periods - Mild dysplasia of cervix 2002 No treatment - Other forms of migraine - Panic disorder without agoraphobia Current Outpatient Prescriptions: sertraline (ZOLOFT) 100 mg tablet Take 1 tablet by mouth twice daily. esomeprazole magnesium (NEXIUM 24HR) 20 mg TbEC Take 1 tablet by mouth once daily. cetirizine (ZYRTEC) 10 mg tablet TAKE 1 TABLET BY MOUTH ONCE DAILY. valsartan (DIOVAN) 160 mg tablet Take 1 tablet by mouth once daily. simvastatin (ZOCOR) 40 mg tablet Take 1 tablet by mouth daily at bedtime. gabapentin (NEURONTIN) 300 mg capsule Take 1 capsule by mouth three times daily. buPROPion SR (ZYBAN SR; WELLBUTRIN SR) 150 mg 12 hr tablet Take 1 tablet by mouth twice daily. acetaminophen (TYLENOL EXTRA STRENGTH) 500 mg tablet Take 1,000 mg by mouth every 8 hours as needed. ranitidine (ZANTAC) 150 mg tablet TAKE 1 TABLET BY MOUTH TWICE DAILY IN ADDITION TO PREVACID exemestane (AROMASIN) 25 mg tablet TAKE ONE TABLET DAILY AFTER A MEAL nystatin (MYCOSTATIN) powder APPLY TO AFFECTED AREA TWICE DAILY. albuterol HFA (PROAIR HFA) 90 mcg/actuation inhaler Inhale 2 Puffs as instructed every 4 hours as needed. [id number] ORAL Take 1 capsule by mouth three times daily. Zinc 50 mg tab Take 50 mg by mouth once daily as needed. Cholecalciferol, Vitamin D3, (VITAMIN D) 1,000 unit cap Take 1,000 Units by mouth once daily. ascorbic acid (VITAMIN C) 500 mg tablet Take 500 mg by mouth once daily. No current facility-administered medications for this visit. ALLERGIES Allergen Reactions - Biaxin [Clarithromy* Anaphylaxis Able to take Zpak Had throat swelling and BP drop with the Biaxin - Clindamycin Hives - Codeine Vomiting Migraine - Doxycycline Hives, Swelling - Imitrex [Sumatripta* Shortness of Breath CHEST PAIN - Penicillins Hives - Sulfa (Sulfonamide * Hives - Environmental [Othe* FAMILY HISTORY Problem Relation Age of Onset - Heart Mother - Heart Father - Breast Cancer Sister 65 - Cancer Sister breast, lung and brain Breast at 32 and at 37 - Hypertension Sister - Heart Brother massive attack age 43 - Cancer Paternal Aunt ? 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 PHYSICAL EXAMINATION: Blood pressure 132/80, pulse 98, resp. rate 18, height 160 cm (5' 3ANDquot;), weight 100.7 kg (222 lb). Last 5 Encounter BP Readings: Date: BP: 08/08/2017 132/80 07/28/2017 139/100 03/03/2017 128/88 02/10/2017 130/86 01/26/2017 136/100 Last 5 Encounter Wt Readings: Date: Wt: 08/08/2017 100.7 kg (222 lb) 07/28/2017 101.2 kg (223 lb) 03/03/2017 98 kg (216 lb) 02/10/2017 96.6 kg (213 lb) 01/26/2017 97.8 kg (215 lb 8 oz) General appearance: well appearing, in no acute distress, well-hydrated, well nourished Skin: Skin color, texture, turgor normal. No significant rashes or lesions. Head: Normal Eyes: Anicteric sclera. Pupils are equally round and reactive to light. Extraocular movements are intact. Ears: External ears normal. Canals clear. TM's unremarkable. Nose/Sinuses: negative Oropharynx: Lips, mucosa, and tongue normal. Teeth and gums normal. Oropharynx normal. Neck: Neck supple, no adenopathy; thyroid symmetric, normal size, no bruits. Lungs: Lungs clear to auscultation Heart: negative. RRR without murmur, gallop, or rubs. No ectopy. Abdomen: Abdomen soft, non-tender. Bowel sounds normal. No masses, organomegaly Extremities: Extremities normal. No deformities, edema, or skin discoloration. Good capillary refill. Musculoskeletal: grossly normal Peripheral pulses: Normal Neuro: Gait normal. Reflexes normal and symmetric. Sensation grossly intact. No gross focal neurological deficits. Labs reviewed. ASSESSMENT AND PLAN See diagnoses and orders Encounter Diagnosis ICD-10-CM 1. Essential hypertension, benign I10 COMP METABOLIC PANEL CBC 2. Obesity (BMI 30-39.9) E66.9 3. Back pain, unspecified back location, unspecified back pain laterality, unspecified chronicity M54.9 gabapentin (NEURONTIN) 300 mg capsule 4. Adjustment disorder with depressed mood F43.21 5. Hyperlipidemia, unspecified hyperlipidemia type E78.5 LIPID PANEL BASIC 6. Gastroesophageal reflux disease, esophagitis presence not specified K21.9 7. Need for vaccination Z23 INFLUENZA VACCINE QUADRIVALENT AGE 3 YRS PLUS + IM 8. Encounter for long-term current use of medication Z79.899 COMP METABOLIC PANEL CBC MAGNESIUM BLD Above issues addressed with patient. Patient involved in shared decision making for management of her medical issues. History and medications reviewed. Epic updated as needed Continue present management. Further evaluation and treatment as indicated. Refills taken care of and meds adjusted as indicated after reviewed history, exam and labs. Health Maintenance reviewed. Updated record and/or ordered tests as recorded. Encouraged on efforts at healthy diet and regular exercise and adequate sleep. Needs to keep working on diet and exercise with lifestyle changes for effective weight loss. Noted weight crept up. Discussed need to improve diet and exercise. Granddtr due 08/13 The majority of the visit was spent counseling and/or coordinating care for the patient. Zsde-[id number]-azwg time was at least 40 minutes. Jessica Garcias MD Referring Provider: SELF [200] Allergies As of Date: 08/08/2017 Noted Allergy Reaction BIAXIN (CLARITHROMYCIN) 04/30/2005 10 - Anaphylaxis Comments: Able to take Zpak Had throat swelling and BP drop with the Biaxin CLINDAMYCIN 09/12/2006 4 - Hives CODEINE 10/05/2012 11 - Vomiting Comments: Migraine DOXYCYCLINE 07/01/2008 4 - Hives 7 - Swelling IMITREX (SUMATRIPTAN SUCCINATE) 04/29/2005 12 - Shortness of Breath Comments: CHEST PAIN PENICILLINS 04/29/2005 4 - Hives SULFA (SULFONAMIDE ANTIBIOTICS) 04/29/2005 4 - Hives environmental [Other] 04/28/2007 Date Reviewed: 08/08/2017 Reviewed by: Cristela Shepherd [facility] - Fully Assessed Reason for Visit: Physical [83] Imm/Inj [58] Cmt: Flu Vaccine Reason For Visit History Recorded Primary Visit Diagnosis:Essential hypertension, benign [I10] Other Visit Diagnoses:Obesity (BMI 30-39.9) [E66.9] Back pain, unspecified back location, unspecified back pain laterality, unspecified chronicity [M54.9] Adjustment disorder with depressed mood [F43.21] Hyperlipidemia, unspecified hyperlipidemia type [E78.5] Gastroesophageal reflux disease, esophagitis presence not specified [K21.9] Need for vaccination [Z23] Encounter for long-term current use of medication [Z79.899] Order(s):INFLUENZA VACCINE QUADRIVALENT AGE 3 YRS PLUS + IM [[id number]] Order #: [id number] buPROPion SR (ZYBAN SR; WELLBUTRIN SR) 150 mg 12 hr tabletTake 1 tablet by mouth twice daily.Disp: 180 tabletRfl: 3 gabapentin (NEURONTIN) 300 mg capsuleTake 1 capsule by mouth three times daily.Disp: 270 capsuleRfl: 3 simvastatin (ZOCOR) 40 mg tabletTake 1 tablet by mouth daily at bedtime.Disp: 90 tabletRfl: 3 sertraline (ZOLOFT) 100 mg tabletTake 1 tablet by mouth twice daily.Disp: 180 tabletRfl: 3 esomeprazole (NEXIUM) 40 mg capsuleTake 1 capsule by mouth daily before breakfast. 1/2 hr before meal.Disp: 30 capsuleRfl: 11 COMP METABOLIC PANEL [SQCMP] Order #: [id number]. #:[id number] CBC [SQCBC] Order #: [id number]. #:[id number] LIPID PANEL BASIC [SQLIPB] Order #: [id number]. #:[id number] MAGNESIUM BLD [SQMG1] Order #: [id number]. #:[id number] Prescriptions as of 08/08/2017 Sig: BUPROPION HCL SR 150 MG TABLE* Take 1 tablet by mouth twice * GABAPENTIN 300 MG CAPSULE Take 1 capsule by mouth three* SIMVASTATIN 40 MG TABLET Take 1 tablet by mouth daily * SERTRALINE 100 MG TABLET Take 1 tablet by mouth twice * ESOMEPRAZOLE MAGNESIUM 40 MG * Take 1 capsule by mouth daily* CETIRIZINE 10 MG TABLET TAKE 1 TABLET BY MOUTH ONCE D* VALSARTAN 160 MG TABLET Take 1 tablet by mouth once d* ACETAMINOPHEN 500 MG TABLET Take 1,000 mg by mouth every * RANITIDINE 150 MG TABLET TAKE 1 TABLET BY MOUTH TWICE * EXEMESTANE 25 MG TABLET TAKE ONE TABLET DAILY AFTER A* NYSTATIN 100,000 UNIT/GRAM TO* APPLY TO AFFECTED AREA TWICE * ALBUTEROL SULFATE HFA 90 MCG/* Inhale 2 Puffs as instructed * [id number] ORAL Take 1 capsule by mouth three* ZINC 50 MG TABLET Take 50 mg by mouth once erica* CHOLECALCIFEROL (VITAMIN D3) * Take 1,000 Units by mouth onc* ASCORBIC ACID (VITAMIN C) 500* Take 500 mg by mouth once tong* Problem List As Of Date 08/08/2017 Noted Resolved ADJUSTMENT DISORDER WITH DEPRESSED MOOD [F43.21]INVALID FOR* ACUTE STRESS REACT NEC [F43.8] INVALID FOR*05/09/2006 FAMILY HX BREAST MALIG [Z80.3] INVALID FOR* ESOPHAGEAL REFLUX [K21.9] INVALID FOR* POSTTRAUMATIC STRESS DISORDER [F43.10] INVALID FOR* Excessive or frequent menstruation [N92.0] INVALID FOR*01/07/2017 Irregular menstrual cycle [N92.6] INVALID FOR*01/07/2017 Premenstrual tension syndromes [N94.3] INVALID FOR*01/07/2017 Mild dysplasia of cervix [N87.0] INVALID FOR*01/07/2017 Papanicolaou smear of cervix with atypical squa*INVALID FOR*01/07/2017 Unspecified symptom associated with female danilo*INVALID FOR*01/07/2017 Abnormal mammogram, unspecified [R92.8] INVALID FOR*01/07/2017 Malignant neoplasm of female breast (HCC) [C50.*INVALID FOR* More... 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) [D70.2] INVALID FOR*01/07/2017 Hyperlipidemia [E78.5] INVALID FOR* Back pain [M54.9] INVALID FOR* Essential hypertension, benign [I10] INVALID FOR* Obesity (BMI 30-39.9) [E66.9] INVALID FOR* Abdominal pain, unspecified site [R10.9] INVALID FOR*10/09/2014 Invasive ductal carcinoma of right breast in fe*INVALID FOR* Prescriptions ordered this encounter Disp Refills Start End BUPROPION HCL SR 150 MG TABLET,12 HR* 180 * 3 08/08/2017 Route: ORAL Sig: Take 1 tablet by mouth twice daily. GABAPENTIN 300 MG CAPSULE 270 * 3 08/08/2017 08/08/2018 Route: ORAL Sig: Take 1 capsule by mouth three times daily. SIMVASTATIN 40 MG TABLET 90 t* 3 08/08/2017 Route: ORAL Sig: Take 1 tablet by mouth daily at bedtime. SERTRALINE 100 MG TABLET 180 * 3 08/08/2017 Route: ORAL Sig: Take 1 tablet by mouth twice daily. ESOMEPRAZOLE MAGNESIUM 40 MG CAPSULE* 30 c* 11 08/08/2017 Cmt: Intentional dose increase. 20 mg not adequate even with taking ranitidine Route: ORAL Sig: Take 1 capsule by mouth daily before breakfast. 1/2 hr before meal. Medications Discontinued During This Encounter buPROPion SR (ZYBAN SR; WELLBUTRIN S* 60 t* 5 02/03/2017 08/08/2017 Route: ORAL Sig: Take 1 tablet by mouth twice daily. Disc: Reason for discontinue is not on file. gabapentin (NEURONTIN) 300 mg capsule 90 c* 5 02/15/2017 08/08/2017 Route: ORAL Sig: Take 1 capsule by mouth three times daily. Disc: Reason for discontinue is not on file. simvastatin (ZOCOR) 40 mg tablet 30 t* 3 03/03/2017 08/08/2017 Route: ORAL Sig: Take 1 tablet by mouth daily at bedtime. Disc: Reason for discontinue is not on file. sertraline (ZOLOFT) 100 mg tablet 60 t* 0 08/04/2017 08/08/2017 Route: ORAL Sig: Take 1 tablet by mouth twice daily. Disc: Reason for discontinue is not on file. esomeprazole magnesium (NEXIUM 24HR)* 30 t* 11 07/29/2017 08/08/2017 Cmt: May take with Ranitidine. Route: ORAL Sig: Take 1 tablet by mouth once daily. Disc: Reason for discontinue is not on file. Disposition: Return in about 6 months (around 02/05/2018) for 6 months follow up. Follow-up and Disposition History Recorded Encounter Status:Closed by JESSICA GARCIAS MD on 08/22/17 OBSOLETE Observed: 08/06/2017 Status: COMPLETED Source: [place] 12:00 AM [facility] REPOSITORY Refill (INTMWS) DMITRITAMEKA ([id number]) 1970 F Date Time Provider Department 08/06/17 JESSICA GARCIAS During your visit today, we recorded the following information about you: Marley Saldaña, RN, RN 08/08/2017 11:02 AM Signed Gabapentin denied, patient has appt scheduled for today. Allergies As of Date: 08/06/2017 Noted Allergy Reaction BIAXIN (CLARITHROMYCIN) 04/30/2005 10 - Anaphylaxis Comments: Able to take Zpak Had throat swelling and BP drop with the Biaxin CLINDAMYCIN 09/12/2006 4 - Hives CODEINE 10/05/2012 11 - Vomiting Comments: Migraine DOXYCYCLINE 07/01/2008 4 - Hives 7 - Swelling IMITREX (SUMATRIPTAN SUCCINATE) 04/29/2005 12 - Shortness of Breath Comments: CHEST PAIN PENICILLINS 04/29/2005 4 - Hives SULFA (SULFONAMIDE ANTIBIOTICS) 04/29/2005 4 - Hives environmental [Other] 04/28/2007 Date Reviewed: 07/28/2017 Reviewed by: Cathy ([facility]) Mark - Fully Assessed Reason for Visit: Refill Request [94] Prescriptions as of 08/06/2017 Sig: SERTRALINE 100 MG TABLET Take 1 tablet by mouth twice * ESOMEPRAZOLE MAGNESIUM 20 MG * Take 1 tablet by mouth once d* CETIRIZINE 10 MG TABLET TAKE 1 TABLET BY MOUTH ONCE D* VALSARTAN 160 MG TABLET Take 1 tablet by mouth once d* SIMVASTATIN 40 MG TABLET Take 1 tablet by mouth daily * GABAPENTIN 300 MG CAPSULE Take 1 capsule by mouth three* BUPROPION HCL SR 150 MG TABLE* Take 1 tablet by mouth twice * ACETAMINOPHEN 500 MG TABLET Take 1,000 mg by mouth every * RANITIDINE 150 MG TABLET TAKE 1 TABLET BY MOUTH TWICE * EXEMESTANE 25 MG TABLET TAKE ONE TABLET DAILY AFTER A* NYSTATIN 100,000 UNIT/GRAM TO* APPLY TO AFFECTED AREA TWICE * ALBUTEROL SULFATE HFA 90 MCG/* Inhale 2 Puffs as instructed * [id number] ORAL Take 1 capsule by mouth three* ZINC 50 MG TABLET Take 50 mg by mouth once erica* CHOLECALCIFEROL (VITAMIN D3) * Take 1,000 Units by mouth onc* ASCORBIC ACID (VITAMIN C) 500* Take 500 mg by mouth once tong* Problem List As Of Date 08/06/2017 Noted Resolved ADJUSTMENT DISORDER WITH DEPRESSED MOOD [F43.21]INVALID FOR* ACUTE STRESS REACT NEC [F43.8] INVALID FOR*05/09/2006 FAMILY HX BREAST MALIG [Z80.3] INVALID FOR* ESOPHAGEAL REFLUX [K21.9] INVALID FOR* POSTTRAUMATIC STRESS DISORDER [F43.10] INVALID FOR* Excessive or frequent menstruation [N92.0] INVALID FOR*01/07/2017 Irregular menstrual cycle [N92.6] INVALID FOR*01/07/2017 Premenstrual tension syndromes [N94.3] INVALID FOR*01/07/2017 Mild dysplasia of cervix [N87.0] INVALID FOR*01/07/2017 Papanicolaou smear of cervix with atypical squa*INVALID FOR*01/07/2017 Unspecified symptom associated with female danilo*INVALID FOR*01/07/2017 Abnormal mammogram, unspecified [R92.8] INVALID FOR*01/07/2017 Malignant neoplasm of female breast (HCC) [C50.*INVALID FOR* More... 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) [D70.2] INVALID FOR*01/07/2017 Hyperlipidemia [E78.5] INVALID FOR* Back pain [M54.9] INVALID FOR* Essential hypertension, benign [I10] INVALID FOR* Obesity (BMI 30-39.9) [E66.9] INVALID FOR* Abdominal pain, unspecified site [R10.9] INVALID FOR*10/09/2014 Invasive ductal carcinoma of right breast in fe*INVALID FOR* Encounter Status:Closed by MARLEY SALDAÑA on 08/08/17 OBSOLETE Observed: 07/30/2017 Status: COMPLETED Source: [place] 12:00 AM [facility] REPOSITORY Refill (FAMPWS) DMITRITAMEKA Nader ([id number]) 1970 F Date Time Provider Department 07/30/17 JESSICA GARCIAS During your visit today, we recorded the following information about you: Sushila Grover Keisha LEE 08/02/2017 2:14 PM Signed Refill will be addressed at upcoming appt with Dr. Garcias, 08/08/2017. Allergies As of Date: 07/30/2017 Noted Allergy Reaction BIAXIN (CLARITHROMYCIN) 04/30/2005 10 - Anaphylaxis Comments: Able to take Zpak Had throat swelling and BP drop with the Biaxin CLINDAMYCIN 09/12/2006 4 - Hives CODEINE 10/05/2012 11 - Vomiting Comments: Migraine DOXYCYCLINE 07/01/2008 4 - Hives 7 - Swelling IMITREX (SUMATRIPTAN SUCCINATE) 04/29/2005 12 - Shortness of Breath Comments: CHEST PAIN PENICILLINS 04/29/2005 4 - Hives SULFA (SULFONAMIDE ANTIBIOTICS) 04/29/2005 4 - Hives environmental [Other] 04/28/2007 Date Reviewed: 07/28/2017 Reviewed by: Cathy ([facility]) Mark - Fully Assessed Reason for Visit: Refill Request [94] Prescriptions as of 07/30/2017 Sig: ESOMEPRAZOLE MAGNESIUM 20 MG * Take 1 tablet by mouth once d* CETIRIZINE 10 MG TABLET TAKE 1 TABLET BY MOUTH ONCE D* VALSARTAN 160 MG TABLET Take 1 tablet by mouth once d* SIMVASTATIN 40 MG TABLET Take 1 tablet by mouth daily * GABAPENTIN 300 MG CAPSULE Take 1 capsule by mouth three* BUPROPION HCL SR 150 MG TABLE* Take 1 tablet by mouth twice * SERTRALINE 100 MG TABLET Take 1 tablet by mouth twice * ACETAMINOPHEN 500 MG TABLET Take 1,000 mg by mouth every * RANITIDINE 150 MG TABLET TAKE 1 TABLET BY MOUTH TWICE * EXEMESTANE 25 MG TABLET TAKE ONE TABLET DAILY AFTER A* NYSTATIN 100,000 UNIT/GRAM TO* APPLY TO AFFECTED AREA TWICE * ALBUTEROL SULFATE HFA 90 MCG/* Inhale 2 Puffs as instructed * [id number] ORAL Take 1 capsule by mouth three* ZINC 50 MG TABLET Take 50 mg by mouth once erica* CHOLECALCIFEROL (VITAMIN D3) * Take 1,000 Units by mouth onc* ASCORBIC ACID (VITAMIN C) 500* Take 500 mg by mouth once tong* Problem List As Of Date 07/30/2017 Noted Resolved ADJUSTMENT DISORDER WITH DEPRESSED MOOD [F43.21]INVALID FOR* ACUTE STRESS REACT NEC [F43.8] INVALID FOR*05/09/2006 FAMILY HX BREAST MALIG [Z80.3] INVALID FOR* ESOPHAGEAL REFLUX [K21.9] INVALID FOR* POSTTRAUMATIC STRESS DISORDER [F43.10] INVALID FOR* Excessive or frequent menstruation [N92.0] INVALID FOR*01/07/2017 Irregular menstrual cycle [N92.6] INVALID FOR*01/07/2017 Premenstrual tension syndromes [N94.3] INVALID FOR*01/07/2017 Mild dysplasia of cervix [N87.0] INVALID FOR*01/07/2017 Papanicolaou smear of cervix with atypical squa*INVALID FOR*01/07/2017 Unspecified symptom associated with female danilo*INVALID FOR*01/07/2017 Abnormal mammogram, unspecified [R92.8] INVALID FOR*01/07/2017 Malignant neoplasm of female breast (HCC) [C50.*INVALID FOR* More... 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) [D70.2] INVALID FOR*01/07/2017 Hyperlipidemia [E78.5] INVALID FOR* Back pain [M54.9] INVALID FOR* Essential hypertension, benign [I10] INVALID FOR* Obesity (BMI 30-39.9) [E66.9] INVALID FOR* Abdominal pain, unspecified site [R10.9] INVALID FOR*10/09/2014 Invasive ductal carcinoma of right breast in fe*INVALID FOR* Encounter Status:Closed by SUSHILA ENG LPN on 08/02/17 OBSOLETE Observed: 07/29/2017 Status: COMPLETED Source: [place] 12:00 AM [facility] REPOSITORY Refill (INTMWS) TAMEKA BAI ([id number]) 1970 F Date Time Provider Department 07/29/17 JESSICA GARCIAS INTMWS During your visit today, we recorded the following information about you: Chelly Hand RN 07/29/2017 12:38 PM Signed Patient states insurance will not pay for Prevacid but will pay for Prilosec OTC, she already took Prevacid twice a day along with Ranitidine 150 mg twice a day and asking for PCP to send formulary alternative for Prilosec OTC twice a day dosing. Order Pended if PCP agreeable. Please review and advise. Chelly Hand RN Chelly Hand RN 07/29/2017 1:00 PM Signed Patient calling back and is concerned about changing states she tried once a day Nexium with good results, taken Along with her Twice a day Ranitidine. This nurse looked up formulary coverage and it appears that the 24 hour dose is on preferred formulary and patient willing to try Nexium once a day (in addition to her twice a day Ranitidine). Order pended, no need to call patient if PCP agreeable to Nexium. FRANCISCO Escalera MD 07/29/2017 1:19 PM Signed If needs prior authorization, file prior authorization The following approved medication requests have been transmitted electronically. Signed Prescriptions Disp Refills esomeprazole magnesium (NEXIUM 24HR) 20 mg TbEC 30 tablet 11 Sig: Take 1 tablet by mouth once daily. Authorizing Provider: JESSICA GARCIAS MD Allergies As of Date: 07/29/2017 Noted Allergy Reaction BIAXIN (CLARITHROMYCIN) 04/30/2005 10 - Anaphylaxis Comments: Able to take Zpak Had throat swelling and BP drop with the Biaxin CLINDAMYCIN 09/12/2006 4 - Hives CODEINE 10/05/2012 11 - Vomiting Comments: Migraine DOXYCYCLINE 07/01/2008 4 - Hives 7 - Swelling IMITREX (SUMATRIPTAN SUCCINATE) 04/29/2005 12 - Shortness of Breath Comments: CHEST PAIN PENICILLINS 04/29/2005 4 - Hives SULFA (SULFONAMIDE ANTIBIOTICS) 04/29/2005 4 - Hives environmental [Other] 04/28/2007 Date Reviewed: 07/28/2017 Reviewed by: Cathy ([facility]) Mark - Fully Assessed Reason for Visit: Refill Request [94] formulary change [Other] Cmt: Prevacid to Prilosec OTC Reason For Visit History Recorded Order(s):esomeprazole magnesium (NEXIUM 24HR) 20 mg TbECTake 1 tablet by mouth once daily.Disp: 30 tabletRfl: 11 Prescriptions as of 07/29/2017 Sig: ESOMEPRAZOLE MAGNESIUM 20 MG * Take 1 tablet by mouth once d* CETIRIZINE 10 MG TABLET TAKE 1 TABLET BY MOUTH ONCE D* VALSARTAN 160 MG TABLET Take 1 tablet by mouth once d* SIMVASTATIN 40 MG TABLET Take 1 tablet by mouth daily * GABAPENTIN 300 MG CAPSULE Take 1 capsule by mouth three* BUPROPION HCL SR 150 MG TABLE* Take 1 tablet by mouth twice * SERTRALINE 100 MG TABLET Take 1 tablet by mouth twice * ACETAMINOPHEN 500 MG TABLET Take 1,000 mg by mouth every * RANITIDINE 150 MG TABLET TAKE 1 TABLET BY MOUTH TWICE * EXEMESTANE 25 MG TABLET TAKE ONE TABLET DAILY AFTER A* NYSTATIN 100,000 UNIT/GRAM TO* APPLY TO AFFECTED AREA TWICE * ALBUTEROL SULFATE HFA 90 MCG/* Inhale 2 Puffs as instructed * [id number] ORAL Take 1 capsule by mouth three* ZINC 50 MG TABLET Take 50 mg by mouth once erica* CHOLECALCIFEROL (VITAMIN D3) * Take 1,000 Units by mouth onc* ASCORBIC ACID (VITAMIN C) 500* Take 500 mg by mouth once tong* Problem List As Of Date 07/29/2017 Noted Resolved ADJUSTMENT DISORDER WITH DEPRESSED MOOD [F43.21]INVALID FOR* ACUTE STRESS REACT NEC [F43.8] INVALID FOR*05/09/2006 FAMILY HX BREAST MALIG [Z80.3] INVALID FOR* ESOPHAGEAL REFLUX [K21.9] INVALID FOR* POSTTRAUMATIC STRESS DISORDER [F43.10] INVALID FOR* Excessive or frequent menstruation [N92.0] INVALID FOR*01/07/2017 Irregular menstrual cycle [N92.6] INVALID FOR*01/07/2017 Premenstrual tension syndromes [N94.3] INVALID FOR*01/07/2017 Mild dysplasia of cervix [N87.0] INVALID FOR*01/07/2017 Papanicolaou smear of cervix with atypical squa*INVALID FOR*01/07/2017 Unspecified symptom associated with female danilo*INVALID FOR*01/07/2017 Abnormal mammogram, unspecified [R92.8] INVALID FOR*01/07/2017 Malignant neoplasm of female breast (HCC) [C50.*INVALID FOR* More... 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) [D70.2] INVALID FOR*01/07/2017 Hyperlipidemia [E78.5] INVALID FOR* Back pain [M54.9] INVALID FOR* Essential hypertension, benign [I10] INVALID FOR* Obesity (BMI 30-39.9) [E66.9] INVALID FOR* Abdominal pain, unspecified site [R10.9] INVALID FOR*10/09/2014 Invasive ductal carcinoma of right breast in fe*INVALID FOR* Prescriptions ordered this encounter Disp Refills Start End ESOMEPRAZOLE MAGNESIUM 20 MG TABLET,* 30 t* 11 07/29/2017 Cmt: May take with Ranitidine. Route: ORAL Sig: Take 1 tablet by mouth once daily. Encounter Status:Closed by CARMEN GÓMEZ LPN on 08/01/17 PROGRESS Observed: 07/28/2017 Status: COMPLETED Source: [place] 2:08 PM [facility] REPOSITORY HNO ID: [id number] Author: Cathy Flores Service: (none) Author Type: Nurse Practitioner Type: Progress Notes Filed: 07/28/2017 2:34 PM Note Text: Chief Complaint Patient presents with: Established Patient HPI: Tameka Bai is a 47 year old female who presents here today for follow up breast cancer. DX:pT2 (2.5 cm; poorly differentiated; AL invasion negative) pN0 (None of 2 SLNs) MX ER/SD positive HER2 nonoverexpressed (IHC 1+) invasive ductal carcinoma of the right breast s/p partial mastectomy with SLN biopsy procedure 12/22/11. ?? Completed 4 cycles of TC. Completed radiation 06/23/12. ?? Started tamoxifen (06/23/12)-went off anti-depressant. Was not able to tolerate being off of antidepressant-so restarted and stopped tamoxifen. ?? Started on arimidex then stopped d/t hot flashes, joint/muscle pain. Changed to aromasin. Was receiving Zoladex . S/p BSO 03/10. ? No complaints.?? Appetite:it's been down the past few days Energy level:good Denies fever, chills or night sweats. Denies recent illness. Resp:+cough +seasonal allergies/h/o asthma Cardiac:denies chest pain/palpitations GI:denies abd pain, n/v, moving bowels regularly :denies dysuria/hematuria Extrem:denies pain, R hand stiffness Endo:hot flashes-daily probably about 8 per day they do not wake her at night Neuro:neuropathy hands L>X-bslpxt-Qitd resolved. Skin:denies rashes/lesions Heme:denies bleeding The ROS is otherwise negative. Past medical history, appointments, medications, allergies reviewed. No changes. EXAM: BP 139/100 Pulse 92 Temp 36.9 ?C (98.5 ?F) (Oral) Wt 101.2 kg (223 lb) BMI 40.46 kg/m2 APPEARANCE Well appearing, alert, in no acute distress, well-hydrated, well nourished. HEART RRR with normal S1 and S2, no murmurs LUNG clear to auscultation BREAST FEMALE no mass/nodule b/l, scar to R upper/radiation changes LYMPH NODES No cervical lymphadenopathy, No supraclavicular lymphadenopathy and No axillary lymphadenopathy. ABDOMEN bowel sounds normoactive, no bruits, soft, non-tender, non-distended, without organomegaly or palpable masses EXTREMITIES No edema NEURO Awake, alert and oriented x 3, Normal gait and No involuntary motions. SKIN Skin color, texture, turgor normal, no suspicious rashes or lesions ASSESSMENT/PLAN: 1. Invasive ductal carcinoma of right breast in female (HCC) - ICD9: 174.9, ICD10: C50.911 (primary diagnosis) pT2 (2.5 cm; poorly differentiated; AL invasion negative) pN0 (None of 2 SLNs) MX ER/SD positive HER2 nonoverexpressed (IHC 1+) invasive ductal carcinoma of the right breast s/p partial mastectomy with SLN biopsy procedure 12/22/11. 2. Encounter for screening mammogram for high-risk patient - ICD9: V76.11, ICD10: Z12.31 - No concerning findings on exam. - Tolerating aromasin well. Continue. Will change to femara once she finishes the aromasin that she has at home. - Bone density due November 2018. - Mammogram due in November. - Follow up in 6 months. - Pt. aware to call office with any questions/concerns. The patient indicates understanding of these issues and agrees with the plan. Cathy Flores CNP CNOVSP Observed: 07/28/2017 Status: COMPLETED Source: [place] 2:00 PM [facility] REPOSITORY Visit (SP) Office (DILCIA) TAMEKA BAI ([id number]) 1970 F Date Time Provider Department 07/28/17 2:00 PM CATHY FLORES ([facility]) DILCIA During your visit today, we recorded the following information about you: Temperature Pulse Blood pressure Weight 98.5 degrees 92/minute 139/100 101.2 kg Cathy Flores CNP 07/28/2017 2:34 PM Signed Chief Complaint Patient presents with: Established Patient HPI: Tameka Nader Bai is a 47 year old female who presents here today for follow up breast cancer. DX:pT2 (2.5 cm; poorly differentiated; AL invasion negative) pN0 (None of 2 SLNs) MX ER/SD positive HER2 nonoverexpressed (IHC 1+) invasive ductal carcinoma of the right breast s/p partial mastectomy with SLN biopsy procedure 12/22/11. ?? Completed 4 cycles of TC. Completed radiation 06/23/12. ?? Started tamoxifen (06/23/12)-went off anti-depressant. Was not able to tolerate being off of antidepressant-so restarted and stopped tamoxifen. ?? Started on arimidex then stopped d/t hot flashes, joint/muscle pain. Changed to aromasin. Was receiving Zoladex . S/p BSO 03/10. ? No complaints.?? Appetite:ANDquot;it's been down the past few daysANDquot; Energy level:good Denies fever, chills or night sweats. Denies recent illness. Resp:+cough +seasonal allergies/h/o asthma Cardiac:denies chest pain/palpitations GI:denies abd pain, n/v, moving bowels regularly :denies dysuria/hematuria Extrem:denies pain, R hand stiffness Endo:hot flashes-daily ANDquot;probably about 8 per dayANDquot; they do not wake her at night Neuro:neuropathy hands LANDgt;J-hfubtc-Johd resolved. Skin:denies rashes/lesions Heme:denies bleeding The ROS is otherwise negative. Past medical history, appointments, medications, allergies reviewed. No changes. EXAM: BP 139/100 Pulse 92 Temp 36.9 ?C (98.5 ?F) (Oral) Wt 101.2 kg (223 lb) BMI 40.46 kg/m2 APPEARANCE Well appearing, alert, in no acute distress, well- hydrated, well nourished. HEART RRR with normal S1 and S2, no murmurs LUNG clear to auscultation BREAST FEMALE no mass/nodule b/l, scar to R upper/radiation changes LYMPH NODES No cervical lymphadenopathy, No supraclavicular lymphadenopathy and No axillary lymphadenopathy. ABDOMEN bowel sounds normoactive, no bruits, soft, non-tender, non-distended, without organomegaly or palpable masses EXTREMITIES No edema NEURO Awake, alert and oriented x 3, Normal gait and No involuntary motions. SKIN Skin color, texture, turgor normal, no suspicious rashes or lesions ASSESSMENT/PLAN: 1. Invasive ductal carcinoma of right breast in female (HCC) - ICD9: 174.9, ICD10: C50.911 (primary diagnosis) pT2 (2.5 cm; poorly differentiated; AL invasion negative) pN0 (None of 2 SLNs) MX ER/SD positive HER2 nonoverexpressed (IHC 1+) invasive ductal carcinoma of the right breast s/p partial mastectomy with SLN biopsy procedure 12/22/11. 2. Encounter for screening mammogram for high-risk patient - ICD9: V76.11, ICD10: Z12.31 - No concerning findings on exam. - Tolerating aromasin well. Continue. Will change to femara once she finishes the aromasin that she has at home. - Bone density due November 2018. - Mammogram due in November. - Follow up in 6 months. - Pt. aware to call office with any questions/concerns. The patient indicates understanding of these issues and agrees with the plan. Cathy Flores CNP Referring Provider: CATHY FLORES ([facility]) [[id number]] Allergies As of Date: 07/28/2017 Noted Allergy Reaction BIAXIN (CLARITHROMYCIN) 04/30/2005 10 - Anaphylaxis Comments: Able to take Zpak Had throat swelling and BP drop with the Biaxin CLINDAMYCIN 09/12/2006 4 - Hives CODEINE 10/05/2012 11 - Vomiting Comments: Migraine DOXYCYCLINE 07/01/2008 4 - Hives 7 - Swelling IMITREX (SUMATRIPTAN SUCCINATE) 04/29/2005 12 - Shortness of Breath Comments: CHEST PAIN PENICILLINS 04/29/2005 4 - Hives SULFA (SULFONAMIDE ANTIBIOTICS) 04/29/2005 4 - Hives environmental [Other] 04/28/2007 Date Reviewed: 07/28/2017 Reviewed by: Cathy ([facility]) Mark - Fully Assessed Reason for Visit: Established Patient [175] Primary Visit Diagnosis:Invasive ductal carcinoma of right breast in female (HCC) [C50.911] Other Visit Diagnosis:Encounter for screening mammogram for high-risk patient [Z12.31] Order(s):[facility] SCREEN[facility] [[id number]] Order #: [id number] FUTURE Follow-up and Disposition History Recorded Prescriptions as of 07/28/2017 Sig: CETIRIZINE 10 MG TABLET TAKE 1 TABLET BY MOUTH ONCE D* VALSARTAN 160 MG TABLET Take 1 tablet by mouth once d* SIMVASTATIN 40 MG TABLET Take 1 tablet by mouth daily * GABAPENTIN 300 MG CAPSULE Take 1 capsule by mouth three* BUPROPION HCL SR 150 MG TABLE* Take 1 tablet by mouth twice * SERTRALINE 100 MG TABLET Take 1 tablet by mouth twice * ACETAMINOPHEN 500 MG TABLET Take 1,000 mg by mouth every * RANITIDINE 150 MG TABLET TAKE 1 TABLET BY MOUTH TWICE * EXEMESTANE 25 MG TABLET TAKE ONE TABLET DAILY AFTER A* NYSTATIN 100,000 UNIT/GRAM TO* APPLY TO AFFECTED AREA TWICE * ALBUTEROL SULFATE HFA 90 MCG/* Inhale 2 Puffs as instructed * [id number]-FRIUTYCCN-CDWF ORAL Take 1 capsule by mouth three* ZINC 50 MG TABLET Take 50 mg by mouth once erica* CHOLECALCIFEROL (VITAMIN D3) * Take 1,000 Units by mouth onc* ASCORBIC ACID (VITAMIN C) 500* Take 500 mg by mouth once tong* Medication notes this encounter NYSTATIN 100,000 UNIT/GRAM TOPICAL POWDER >> Rossi Yeung MA 07/28/2017 2:07 PM >> ROSSI YEUNG MA Jul 28, 2017 2:07 PM as necessary LANSOPRAZOLE 30 MG CAPSULE,DELAYED RELEASE >> Rossi Yeung MA 07/28/2017 2:05 PM >> ROSSI YEUNG MA Jul 28, 2017 2:05 PM Not taking. OXYCODONE-ACETAMINOPHEN 5 MG-325 MG TABLET >> Rossi Yeung MA 07/28/2017 2:06 PM >> ROSSI YEUNG MA Jul 28, 2017 2:06 PM No longer taking. NAPROXEN 500 MG TABLET >> Rossi Yeung MA 07/28/2017 2:06 PM >> ROSSI YEUNG MA Jul 28, 2017 2:06 PM No longer taking. Problem List As Of Date 07/28/2017 Noted Resolved ADJUSTMENT DISORDER WITH DEPRESSED MOOD [F43.21]INVALID FOR* ACUTE STRESS REACT NEC [F43.8] INVALID FOR*05/09/2006 FAMILY HX BREAST MALIG [Z80.3] INVALID FOR* ESOPHAGEAL REFLUX [K21.9] INVALID FOR* POSTTRAUMATIC STRESS DISORDER [F43.10] INVALID FOR* Excessive or frequent menstruation [N92.0] INVALID FOR*01/07/2017 Irregular menstrual cycle [N92.6] INVALID FOR*01/07/2017 Premenstrual tension syndromes [N94.3] INVALID FOR*01/07/2017 Mild dysplasia of cervix [N87.0] INVALID FOR*01/07/2017 Papanicolaou smear of cervix with atypical squa*INVALID FOR*01/07/2017 Unspecified symptom associated with female danilo*INVALID FOR*01/07/2017 Abnormal mammogram, unspecified [R92.8] INVALID FOR*01/07/2017 Malignant neoplasm of female breast (HCC) [C50.*INVALID FOR* More... 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) [D70.2] INVALID FOR*01/07/2017 Hyperlipidemia [E78.5] INVALID FOR* Back pain [M54.9] INVALID FOR* Essential hypertension, benign [I10] INVALID FOR* Obesity (BMI 30-39.9) [E66.9] INVALID FOR* Abdominal pain, unspecified site [R10.9] INVALID FOR*10/09/2014 Invasive ductal carcinoma of right breast in fe*INVALID FOR* Encounter Status:Closed by CATHY FLORES CNP on 07/28/17 OBSOLETE Observed: 07/19/2017 Status: COMPLETED Source: [place] 12:00 AM [facility] REPOSITORY Refill (INTMWS) TAMEKA BAI ([id number]) 1970 F Date Time Provider Department 07/19/17 JESSICA GARCIAS INTShitalWS During your visit today, we recorded the following information about you: Immanuel Hernandez LPN 07/20/2017 9:57 AM Signed Pharmacy electronically requests the following refill(s) Pending Prescriptions Disp Refills CETIRIZINE 10 MG TABLET 30 tablet 3 Sig: TAKE 1 TABLET BY MOUTH ONCE DAILY. GENESIS: Yes Immanuel Hernandez LPN Allergies As of Date: 07/19/2017 Noted Allergy Reaction BIAXIN (CLARITHROMYCIN) 04/30/2005 10 - Anaphylaxis Comments: Able to take Zpak Had throat swelling and BP drop with the Biaxin CLINDAMYCIN 09/12/2006 4 - Hives CODEINE 10/05/2012 11 - Vomiting Comments: Migraine DOXYCYCLINE 07/01/2008 4 - Hives 7 - Swelling IMITREX (SUMATRIPTAN SUCCINATE) 04/29/2005 12 - Shortness of Breath Comments: CHEST PAIN PENICILLINS 04/29/2005 4 - Hives SULFA (SULFONAMIDE ANTIBIOTICS) 04/29/2005 4 - Hives environmental [Other] 04/28/2007 Date Reviewed: 03/03/2017 Reviewed by: Gely Chaidez Ma - Fully Assessed Reason for Visit: Refill Request [94] Order(s):cetirizine (ZYRTEC) 10 mg tabletTAKE 1 TABLET BY MOUTH ONCE DAILY.Disp: 30 tabletRfl: 3 Prescriptions as of 07/19/2017 Sig: CETIRIZINE 10 MG TABLET TAKE 1 TABLET BY MOUTH ONCE D* VALSARTAN 160 MG TABLET Take 1 tablet by mouth once d* SIMVASTATIN 40 MG TABLET Take 1 tablet by mouth daily * GABAPENTIN 300 MG CAPSULE Take 1 capsule by mouth three* LANSOPRAZOLE 30 MG CAPSULE,DE* Take 1 capsule by mouth twice* OXYCODONE-ACETAMINOPHEN 5 MG-* Take 1-2 tablets by mouth mary* NAPROXEN 500 MG TABLET Take 1 tablet by mouth twice * BUPROPION HCL SR 150 MG TABLE* Take 1 tablet by mouth twice * SERTRALINE 100 MG TABLET Take 1 tablet by mouth twice * ACETAMINOPHEN 500 MG TABLET Take 1,000 mg by mouth every * RANITIDINE 150 MG TABLET TAKE 1 TABLET BY MOUTH TWICE * EXEMESTANE 25 MG TABLET TAKE ONE TABLET DAILY AFTER A* NYSTATIN 100,000 UNIT/GRAM TO* APPLY TO AFFECTED AREA TWICE * ALBUTEROL SULFATE HFA 90 MCG/* Inhale 2 Puffs as instructed * ULKICYQ-[id number]-AHPL ORAL Take 1 capsule by mouth three* ZINC 50 MG TABLET Take 50 mg by mouth once erica* CHOLECALCIFEROL (VITAMIN D3) * Take 1,000 Units by mouth onc* ASCORBIC ACID (VITAMIN C) 500* Take 500 mg by mouth once tong* Problem List As Of Date 07/19/2017 Noted Resolved ADJUSTMENT DISORDER WITH DEPRESSED MOOD [F43.21]INVALID FOR* ACUTE STRESS REACT NEC [F43.8] INVALID FOR*05/09/2006 FAMILY HX BREAST MALIG [Z80.3] INVALID FOR* ESOPHAGEAL REFLUX [K21.9] INVALID FOR* POSTTRAUMATIC STRESS DISORDER [F43.10] INVALID FOR* Excessive or frequent menstruation [N92.0] INVALID FOR*01/07/2017 Irregular menstrual cycle [N92.6] INVALID FOR*01/07/2017 Premenstrual tension syndromes [N94.3] INVALID FOR*01/07/2017 Mild dysplasia of cervix [N87.0] INVALID FOR*01/07/2017 Papanicolaou smear of cervix with atypical squa*INVALID FOR*01/07/2017 Unspecified symptom associated with female danilo*INVALID FOR*01/07/2017 Abnormal mammogram, unspecified [R92.8] INVALID FOR*01/07/2017 Malignant neoplasm of female breast (HCC) [C50.*INVALID FOR* More... 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) [D70.2] INVALID FOR*01/07/2017 Hyperlipidemia [E78.5] INVALID FOR* Back pain [M54.9] INVALID FOR* Essential hypertension, benign [I10] INVALID FOR* Obesity (BMI 30-39.9) [E66.9] INVALID FOR* Abdominal pain, unspecified site [R10.9] INVALID FOR*10/09/2014 Invasive ductal carcinoma of right breast in fe*INVALID FOR* Prescriptions ordered this encounter Disp Refills Start End CETIRIZINE 10 MG TABLET 30 t* 3 07/22/2017 Sig: TAKE 1 TABLET BY MOUTH ONCE DAILY. Medications Discontinued During This Encounter cetirizine (ZYRTEC) 10 mg tablet 30 t* 3 03/03/2017 07/22/2017 Route: ORAL Sig: Take 1 tablet by mouth once daily. Disc: Reason for discontinue is not on file. Encounter Status:Closed by JESSICA GARCIAS MD on 07/22/17 ALLERGIES ALLERGIES DATE TYPE / CODE NAME / CODE REACTION SEVERITY SOURCE Drug sumatriptan Unknown Unknown Cr 8 Allergy/286307901 succinate/[id number] [facility] (SNOMED CT) 45(RXNORM) Hospital Repository Drug Penicillins/T03276 Hives Unknown [place] 8 Allergy/234453917 0476(RXNORM) [facility] (OMED CT) Hospital Repository Drug Sulfa (Sulfonamide Hives Unknown Cr 8 Allergy/226629549 Antibiotics)/F0010 [facility] (QMCODES CT) 11863(RXNORM) Hospital Repository Drug clarithromycin/F00 Unknown Unknown Cr 8 Allergy/768232228 8667989(RXNORM) [facility] (SNOMED CT) Hospital Repository Drug sumatriptan/A67119 Unknown Unknown [place] 8 Allergy/590692910 4044(RXNORM) [facility] (OMED CT) Hospital Repository Miscellaneous COUGH MED Unknown Unknown Cr 8 Allergy/169245834 W/CODEINE [facility] ([facility] Repository DRUG CODEINE Vomiting [place] 3 INGREDI/152313388 [facility] (SNOMED CT) [place] Repository DRUG DOXYCYCLINE HIVES [place] 8 INGREDI/676772645 [facility] (SNOMED [facility]) [place] Rep[place] Miscellaneous OTHER [place] 7 Allergy/340810412 [facility] (SNOMED CT) [place] [facility] DRUG CLINDAMYCIN HIVES [place] 7 INGREDI/463758586 [facility] (SNOMED CT) [place] Rep[place] DRUG CLARITHROMYCIN ANAPHYLAXIS [place] 5 INGREDI/519139541 [facility] (SNOMED CT) [place] Rep[place] DRUG SUMATRIPTAN SHORTNESS OF [place] 5 INGREDI/576855810 SUCCINATE [facility] (SNOMED CT) [place] Rep[facility] Drug [facility] [place] [facility] Class/842655386(S [facility] NOMED [facility]) [place] Repository Drug SULFA (SULFONAMIDE [facility] [place] Class/408046629(S ANTIBIOTICS) [facility] NOMED [facility]) [place] Rep[place] ENCOUNTERS ENCOUNTERS ADMIT/DISCHARGE ACCOUNT ADMITTING ENCOUNTER LOCATION SOURCE NUMBER CLASS 06/21/2018 [id number] [facility] ing:LABSPEC Repository 06/21/2018 [id number] Ambulatory [facility] [place] Repository 06/04/2018 [id number] Ambulatory [facility] ing:NS Repository 05/31/2018/05/31/20 [id number] Emergency [address] ing:ED Repository 05/31/2018/05/31/20 [id number] Ambulatory [address] [place] Repository 05/02/2018/05/24/20 [id number] Ambulatory [address] ing:NS Repository 04/21/2018/04/24/20 [id number] Ambulatory [address] [place] Repository 04/18/2018/04/23/20 [id number] Ambulatory [address] ing:NS Repository 03/09/2018/03/24/[id number] ing:NS Repository 02/28/2018/02/29/20 [id number] Ambulatory [address] [place] Repository 02/28/2018/03/01/20 [id number] Ambulatory [address] Repository 02/10/2018/02/22/20 [id number] Ambulatory [address] Repository 01/13/2018/01/17/20 [id number] Ambulatory [address] Repository 12/27/2017/12/29/19 [id number] Ambulatory [address] Repository 12/16/2017 [id number] Ambulatory [facility] ing:MRI Repository 12/08/2017/12/09/19 [id number] Ambulatory [address] Repository 08/08/2017/08/22/19 [id number] Ambulatory [address] Repository 07/28/2017/07/28/19 [id number] Ambulatory [address] Repository PAYERS PAYERS ENCOUNTER GUARANTOR PAYER SUBSCRIBER SOURCE 06/21/2018 TAMEKA Doe Primary TAMEKA [id number] Insurance:CARESOURCEP SAMPSONDOB: [facility] XOCHITL haywardskyler Number: [id number] [id number] Repository [address]Zax: [phone]) Date:2018-06-21P O [phone] () [address]ATTN: [place] [address]FA: 06/21/2018 Secondary NOT GIVENUNK Cr Insurance:SELF PAY [facility] Number: Effective Repository Date:2018-06-21 06/04/2018 TAMEKA Doe Primary TAMEKA Hankins [id number] Insurance:CARESOURCEP SAMPSONDOB: [facility] Xochitl haywardmiguelang Number: [id number] [id number] Repository [address]Rzx: [phone]) Date:2018-03-09P O [phone] () [address]ATTN: [place] [address]BG: 06/04/2018 Secondary NOT GIVENUNK [place] Insurance:SELF PAY [facility] Number: Effective Repository Date:2018-05-25 05/31/2018 TAMEKA Doe Primary TAMEKA Hankins [id number] Insurance:CARESOURCEP SAMPSONDOB: Community XOCHITL [place] Number: [id number] [id number] Repository [address]Xhj: [phone]) Date:2018-05-31P O [phone] () [address]N: [place] [address]PP: 05/31/2018 Secondary NOT GIVENUNK Cr Insurance:SELF PAY [facility] Number: Effective Repository Date:2018-05-31 05/02/2018 TAMEKA L Primary TAMEKA Doe [place] [id number] Insurance:CARESOURCEP SAMPSONDOB: Community Xochitl [place] Number: [id number] [id number] Repository [address]Vle: [phone]) Date:2018-03-09P O [phone] () [address]ATTN: [place] [address]YJ: 05/02/2018 Secondary NOT GIVENUNK Cr Insurance:SELF PAY [facility] Number: Effective Repository Date:2018-04-24 04/18/2018 TAMEKA L Primary TAMEKA [id number] Insurance:CARESOURCEP SAMPSONDOB: Community Xochitl [place] Number: [id number] [id number] Repository [address]Tms: [phone]) Date:2018-03-09P O [phone] () [address]ATTN: [place] [address]EP: 04/18/2018 Secondary NOT GIVENUNK Cr Insurance:SELF PAY [facility] Number: Effective Repository Date:2018-03-25 03/09/2018 TAMEKA L Primary TAMEKA BARRERAPSON2222 Insurance:CARESOURCEP SAMPSONDOB: Community Xochitl [place] Number: [id number] [id number] Repository [address]Lgl: [phone]) Date:2018-03-09P O [phone] () [address]ATTN: [place] [address]MW: 03/09/2018 Secondary NOT GIVENUNK [place] Insurance:SELF PAY [facility] Number: Effective Repository Date:2018-03-09 12/16/2017 TAMEKA L Primary TAMEKA Doe Cr [id number] Insurance:LOGANBERNARDA QUISPE: [facility] Xochitl [place] Number: [id number] [id number] Repository [address]Exe: [phone]) Date:2017-12-08P O [phone] () [address]ATTN: [place] [address]YM: 12/16/2017 Secondary NOT GIVENUNK Cr Insurance:SELF PAY [facility] Number: Effective Repository Date:2017-12-08
== END ==
PROVIDERS: Family Provider Internal Medicine; PCP Internal Medicine; Referring Provider Otolaryngology Otolaryngology/Facial Plastic Surgery; Visit Provider Otolaryngology Otolaryngology/Facial Plastic Surgery
DX: J02.9 Acute pharyngitis, unspecified (principal)
CPT/HCPCS: 87070

== ENCOUNTER 2020-02-18 15:42 | Emergency (ER) | payer MEDICAID, SELFPAY ==
[2020-02-18 15:43] VITALS: BP 159/87; PULSE 114; RESP 18; TEMP 36.5; O2SAT 93; BMI 39.5
--- NOTE | 2020-02-18 16:13 | ED.VIS.GEN ---
History of Present Illness Chief Complaint: Abd Pain Informant: Patient Onset: Today Narrative: Patient states she has a long history of acid reflux. She currently takes Nexium and as needed Tums. She states that the reflux gets bad and sometimes she will vomit and there will be a small amount of blood during the vomits. Last EGD was a couple years ago and she is due for another one in March with Dr. Temple. She states that today she vomited and there was more blood than expected. She notes some discomfort in her throat. She denies any black or bloody stools. Past Medical History - Allergies and Home Meds Allergies/Adverse Reactions: Allergies clarithromycin [From Biaxin] Allergy (Verified 02/18/20 17:20) Unknown Penicillins Allergy (Verified 02/18/20 17:20) Hives Sulfa (Sulfonamide Antibiotics) Allergy (Verified 02/18/20 17:20) Hives sumatriptan [From Imitrex] Allergy (Verified 02/18/20 17:20) Unknown sumatriptan succinate [From Imitrex] Allergy (Verified 02/18/20 17:20) Unknown COUGH MED W/CODEINE Allergy (Uncoded 02/18/20 17:20) Unknown Smoking Status: Never smoker Review of Systems General: Denies: Chills, Fever, Sweats Eyes: Denies: Visual changes - bilaterally, Diplopia ENT: Denies: Rhinorrhea, Sore throat Cardiovascular: Denies: Chest pain, Palpitations Respiratory: Denies: Dyspnea, Cough, Dyspnea on exertion Gastrointestinal: Reports: Nausea, Vomiting, - - Reflux disease. Denies: Abdominal pain, Diarrhea, Melena, Hematochezia Genitourinary: Denies: Dysuria, Hematuria, Frequency Musculoskeletal: Denies: Back pain, Extremity Pain Skin: Denies: Rash, Wounds Neurological: Denies: Headache, Weakness, Numbness Physical Exam Vital Signs/Narrative: Vital Signs Temp Pulse Resp BP Pulse Ox 02/18/20 15:43 97.7 F L 114 H 18 159/87 H 93 Inital Vital Signs reviewed: Yes General: Well nourished, Well developed, Obese, No Acute Distress Head: Normocephalic, Atraumatic Eyes: Perrl, EOMI ENT: Moist mucous membranes, No rhinorrhea Neck: Supple, Nontender Cardiovascular: Regular rate, Regular rhythm, No murmurs Respiratory: No distress, CTA bilaterally, Chest nontender Abdomen: Soft, Nontender, Nondistended, Normal bowel sounds Back: Nontender, Normal Inspection Extremities: Nontender, No edema Skin: Normal color, No rash Neurological: Alert, Oriented x3, Cranial nerves II-XII grossly intact, Normal Strength, Normal Sensation Psychological: Normal affect, Normal Mood Diagnostic/Tx/Re-eval Laboratory Last Values WBC 5.8 K/mm3 (4.4-11.0) 02/18/20 17: RBC 5.21 M/mm3 (4.2-5.4) 02/18/20 17: Hgb 14.4 g/dL (12.0-15.0) 02/18/20 17: Hct 43.4 % (37-47) 02/18/20 17: MCV 83.3 fL (81-99) 02/18/20 17: MCH 27.6 pg (27.0-32.0) 02/18/20 17: MCHC 33.2 g/dL (32-36) 02/18/20 17: RDW Std Deviation 38.5 fl (35.1-43.9) 02/18/20 17: RDW Coeff of Ho 12.8 % (11.6-14.6) 02/18/20 17: Plt Count 191 K/mm3 (150-450) 02/18/20 17: MPV 9.9 fl (6.2-12.0) 02/18/20 17: Immature Gran % (Auto) 0.300 % (0.0-0.9) 02/18/20 17: Neut % (Auto) 66.9 % (47-70) 02/18/20 17: Lymph % (Auto) 23.8 % (19-41) 02/18/20 17: [place] % (Auto) 7.1 % (0-10) 02/18/20 17: Eos % (Auto) 1.6 % (0-5) 02/18/20 17: Baso % (Auto) 0.3 % (0-1) 02/18/20 17: Absolute Neuts (auto) 3.9 X10^3/uL (2.0-7.7) 02/18/20 17:26 Absolute Lymphs (auto) 1.38 X10^3/uL (0.83-4.51) 02/18/20 17:26 Nucleated RBC % 0 % (0-5) 02/18/20 17:26 Sodium 140 mmol/L (136-145) 02/18/20 17:26 Potassium 3.5 mmol/L (3.5-5.1) 02/18/20 17:26 Chloride 105 mmol/L (98-107) 02/18/20 17:26 Carbon Dioxide 30.0 mmol/L (21.0-32.0) 02/18/20 17:26 Anion Gap 5 (5-15) 02/18/20 17:26 BUN 12 mg/dL (7-18) 02/18/20 17:26 Creatinine 0.93 mg/dL (0.55-1.02) 02/18/20 17:26 Estim Creat Clear Calc 59.15 ml/min 02/18/20 17:26 Est GFR (MDRD) Af Amer 83 mL/min (>60) 02/18/20 17:26 Est GFR (MDRD) Non-Af 69 mL/min (>60) 02/18/20 17:26 BUN/Creatinine Ratio 12.9 RATIO (10-20) 02/18/20 17:26 Glucose 97 mg/dL (74-106) 02/18/20 17:26 Calcium 9.9 mg/dL (8.5-10.1) 02/18/20 17:26 Total Bilirubin 0.40 mg/dL (0.20-1.00) 02/18/20 17:26 AST 22 U/L (15-37) 02/18/20 17:26 ALT 45 U/L (13-56) 02/18/20 17:26 Alkaline Phosphatase 107 U/L (45-117) 02/18/20 17:26 Total Protein 7.8 g/dL (6.4-8.2) 02/18/20 17:26 Albumin 4.0 g/dL (3.2-5.0) 02/18/20 17:26 Globulin 3.8 g/dL (2.2-4.2) 02/18/20 17:26 Albumin/Globulin Ratio 1.1 RATIO (0.9-2.4) 02/18/20 17:26 Lipase 83 U/L (73-393) 02/18/20 17:26 - Medical Decision Making Hemodynamically and hemoglobin she is stable. We can try some Zofran and Carafate at home in addition to her Nexium. Return if worsening or concerns ED Disposition - Plan for ED Patient: Disposition: Home or Assisted Living Diagnosis: Gastritis, Hematemesis Instructions: ED PEPTIC ULCER vs GASTRITIS Prescriptions: Sucralfate [Carafate] 1 gm PO 4X/DAY #560 ml Transmission Status: Pending to [id number] Ondansetron [Zofran Odt] 4 mg PO Q8H PRN PRN #15 tab PRN Reason: Nausea Transmission Status: Pending to [id number] Referrals: Tamy Garcias MD [Primary Care Provider] - 1 Week
[2020-02-18] MEDS: Mag Hydrox/Al Hydrox/Simeth 30 ML UDC PO (17:28)
[2020-02-18] MEDS: Ondansetron 4 MG/2 ML Vial IV (17:28)
[2020-02-18 17:51] LABS: Absolute Lymphocyte Count 1.38 X10^3/uL (0.83-4.51); Absolute Neutrophil Count 3.9 X10^3/uL (2.0-7.7); Basophil# 0.02 X10^3/uL; Basophil% 0.3 % (0-1); Eosinophil# 0.09 X10^3/uL; Eosinophils% 1.6 % (0-5); Hematocrit 43.4 % (37-47); Hemoglobin 14.4 g/dL (12.0-15.0); Lymphocyte # 1.38 X10^3/ul (4.0); Lymphocyte % 23.8 % (19-41); Mean Corp Hgb Conc 33.2 g/dL (32-36); Mean Corpuscular Hgb 27.6 pg (27.0-32.0); Mean Corpuscular Volume 83.3 fL (81-99); Mean Platelet Vol. 9.9 fl (6.2-12.0); Monocyte# 0.41 X10^3/uL; Monocyte% 7.1 % (0-10); NRBC Flagged by Analyzer 0 % (0-5); Neutrophil # 3.88 X10^3/uL (2.7-7.7); Neutrophil % 66.9 % (47-70); Platelet Count 191 K/mm3 (150-450); RBC Distribution Width CV 12.8 % (11.6-14.6); RBC Distribution Width SD 38.5 fl (35.1-43.9); Red Blood Count 5.21 M/mm3 (4.2-5.4); White Blood Count 5.8 K/mm3 (4.4-11.0)
[2020-02-18 17:56] LABS: ALB/GLOB Ratio 1.1 RATIO (0.9-2.4); AST(SGOT) 22 U/L (15-37); Alanine Aminotransfer ALT/SGPT 45 U/L (13-56); Alkaline Phosphatase 107 U/L (45-117); Anion Gap 5 (5-15); BUN 12 mg/dL (7-18); BUN/Creat Ratio 12.9 RATIO (10-20); Calcium,Total 9.9 mg/dL (8.5-10.1); Chloride 105 mmol/L (98-107); Creatinine, Serum 0.93 mg/dL (0.55-1.02); EST Glomerular Filtration Rate 69 mL/min (>60); Est Glom Filt Rate - Afr Amer 83 mL/min (>60); Estimated Creatinine Clearance 59.15 ml/min; Globulin 3.8 g/dL (2.2-4.2); Glucose 97 mg/dL (74-106); Lipase 83 U/L (73-393); Potassium 3.5 mmol/L (3.5-5.1); Protein, Total 7.8 g/dL (6.4-8.2); Sodium Level 140 mmol/L (136-145)
[2020-02-18 18:30] VITALS: BP 122/67; PULSE 71; RESP 15; O2SAT 98
== END 2020-02-18 18:33 | disposition home or self-care (01) ==
PROVIDERS: Emergency Provider Emergency Medicine; PCP Internal Medicine
DX: K29.70 Gastritis, unspecified, without bleeding (principal); K92.0 Hematemesis; K21.9 Gastro-esophageal reflux disease without esophagitis; Z79.899 Other long term (current) drug therapy
CPT/HCPCS: 80053; 83690; 85025; 96374; 99284; A4216; J2405

== ENCOUNTER 2020-08-04 01:59 | Inpatient (IN) | payer MEDICAID, SELFPAY ==
[2020-08-04] VITALS (18 sets, daily range): BP systolic 143–156; BP diastolic 97–110; PULSE 89–115; RESP 16–22; TEMP 36.4–36.9; O2SAT 89–96; BMI 41.7; BMI 40.9
--- NOTE | 2020-08-04 02:09 | RAD_ITS ---
STUDY: X-RAY CHEST REASON FOR EXAM: Female, 50 years old. patient with cough and congestion for 1 week patient started to have shortness of breath and chest tightness tonight TECHNIQUE: Single AP portable view of the chest. COMPARISON: 03/30/2013. FINDINGS: The lungs are underexpanded with vascular crowding. There is subtle patchy opacities noted, cannot exclude mild multifocal pneumonitis. There are surgical clips projecting over the right lung base. There is no demonstrated pleural abnormality. Normal size heart. Normal mediastinum and dany. Normal visualized pulmonary arteries. Normal visualized aortic arch and descending thoracic aorta. Normal visualized thoracic spine. Normal visualized ribs, clavicles, and shoulders. There is no demonstrated abnormality of the visualized soft tissue structures of the upper abdomen. RAD/Chest 1 View (Portable) IMPRESSION: Possible multifocal pneumonitis versus artifact related to vascular crowding. Postoperative changes as described. Remainder of the exam unremarkable. Electronically Signed: Shelly Beckett MD at 3:06 EST , Service support ,
--- NOTE | 2020-08-04 02:09 | ED.VIS.DYS ---
History of Present Illness Chief Complaint: Shortness of Breath Informant: Patient Onset: - - this past day, less than 12 hrs Activity at onset: Exertion, Light Activity Timing: Continuous Quality: Wheezing Current Severity: Moderate Maximum Severity: Moderate Worsened by: Coughing Relieved by: Albuterol - but not much, Rest Associated Symptoms: Cough. Negative for: Chills, Fever Chest Pain: Burning Narrative: Patient with a history of seasonal allergies and asthma presenting with sinus drainage that has been present off and on for months and she states she gets mostly year-round and does not seem any different until today when she started getting short of breath worse tonight, feels like wheezing/asthma. She denies any other symptoms. No sore throat, myalgias, congestion, nausea or diarrhea, myalgias, lightheadedness or near syncope. She has a friend who had COVID-19 recently, but she quarantine herself, and the patient only had contact with her child during the time when she had symptoms, however she is concerned and would like to be tested for COVID-19. She has not had it that she knows of. She has been tested for it in the past year and tested negative, but not in the past 2 weeks. - Past Medical History (1) Anxiety and depression Status: Chronic (2) Asthma Status: Chronic (3) Seasonal allergies Status: Chronic (4) Hypertension Status: Chronic (5) Hyperlipidemia Status: Chronic Past Medical History - Allergies and Home Meds Allergies/Adverse Reactions: Allergies clarithromycin [From Biaxin] Allergy (Verified 08/04/20 02:07) Unknown Penicillins Allergy (Verified 08/04/20 02:07) Hives Sulfa (Sulfonamide Antibiotics) Allergy (Verified 08/04/20 02:07) Hives sumatriptan [From Imitrex] Allergy (Verified 08/04/20 02:07) Unknown sumatriptan succinate [From Imitrex] Allergy (Verified 08/04/20 02:07) Unknown COUGH MED W/CODEINE Allergy (Uncoded 02/18/20 17:20) Unknown Primary Care Physician: Tamy Garcias MD [Primary Care Provider] - Smoking Status: Former smoker Review of Systems General: Denies: Chills, Fever, Sweats Eyes: Denies: Visual changes - bilaterally, Diplopia ENT: Denies: Bilateral ear pain, Rhinorrhea, Sore throat Cardiovascular: Reports: Chest pain. Denies: Palpitations Respiratory: Reports: Dyspnea, Cough, Dyspnea on exertion. Denies: Sputum, Orthopnea Gastrointestinal: Reports: Vomiting - Posttussive only. Denies: Abdominal pain, Nausea, Diarrhea, Melena, Hematochezia Genitourinary: Denies: Dysuria, Hematuria, Frequency Musculoskeletal: Denies: Myalgias, Back pain, Swelling, Extremity Pain Skin: Denies: Rash, Wounds Neurological: Reports: Headache - Mild off and on. Denies: Weakness, Numbness Physical Exam Vital Signs/Narrative: Vital Signs Temp Pulse Resp BP Pulse Ox 08/04/20 02:07 92 08/04/20 02:00 98.2 F 99 20 H 154/110 H 89 Inital Vital Signs reviewed: Yes General: Well nourished, Well developed, No Acute Distress - Wheezy but in no distress and conversive in full sentences Head: Normocephalic, Atraumatic Eyes: Perrl, EOMI ENT: Moist mucous membranes, No rhinorrhea Neck: Supple, Nontender, No lymphadenopathy Cardiovascular: Regular rate, Regular rhythm, No murmurs Respiratory: No distress, Chest nontender, Wheezing. Negative for: Rales, Rhonchi Abdomen: Soft, Nontender, Nondistended, Normal bowel sounds Back: Nontender, Normal Inspection. Negative for: CVA tenderness Extremities: Nontender, No edema. Negative for: Calf Tenderness Skin: Normal color, No rash, No Trauma Neurological: Alert, Oriented x3, Cranial nerves II-XII grossly intact, Normal Strength, Normal Sensation, Normal Gait Psychological: Normal affect, Normal Mood Diagnostic/Tx/Re-eval Clinical Impression(s) from Imaging Studies Chest X-Ray 08/04/20 02:09 IMPRESSION: Possible multifocal pneumonitis versus artifact related to vascular crowding. Postoperative changes as described. Remainder of the exam unremarkable. Electronically Signed: Shelly Beckett MD at 3:06 EST , Service support , Chest CTA 08/04/20 04:31 IMPRESSION: Normal CTA chest examination, without a demonstrated pulmonary embolism, aortic aneurysm, or aortic dissection. Small scattered groundglass nodular densities as well as small patchy groundglass densities in the lungs are nonspecific in appearance and might represent inflammatory process or viral pneumonia. No demonstrated dense pulmonary consolidation. 5.5 mm and 5.6 mm noncalcified solid appearing left upper lobe lung nodules. Based on Fleischner Society Guidelines, suggested follow-up for a 4-6 mm lung nodule is as follows: Low risk patients: Follow-up CT Chest at 12 months. If no change, no further imaging needed. High risk patients: Initial follow-up CT Chest at 6 -12 months and then at 18 - 24 months if no change. Hiatal hernia. Fatty liver. Splenomegaly. Right adrenal adenoma. Electronically Signed: Gregory aCll MD at 5:20 EST , Service support , - Rhythm Strip Rhythm Strip: Sinus Tach Rate: 104 Ectopy: None - EKG Initial EKG Interpretation: Sinus Rhythm, No Acute Injury Pattern, - - borderline LVH Treatment - Dyspnea: Albuterol, Atrovent Repeat Evaluation: Improved - but O2 sats 88-89% at rest -- oxygen 2L NC applied. - Medical Decision Making After a set of nebulizer treatments, patient is feeling much better but her oxygen saturations are 88-89% on room air at rest. She was placed on oxygen and her send out COVID-19 test was changed to a stat rapid antigen which is negative. She was given prednisone. Basic labs were placed in addition to blood cultures since she meets criteria for sepsis, lactic acid, and antibiotics. Clinically, she looks well. She has a reaction documented to Biaxin and she cannot remember what it is but thinks it is hives, she states she can take a azithromycin without any side effects which is what she was ordered in addition to Rocephin. She has hives as a reaction to penicillin, she was watched closely after starting the Rocephin and developed no symptoms or side effects. She remained clinically and hemodynamically stable in the emergency department, plan is to admit her to the hospital. After discussion with hospitalist, D-dimer is requested in addition to COVID-19 PCR which is obtained. She will remain observed in the emergency department until her PCR returned so that we disposition her to the correct cohort/floor. D-dimer returned elevated, so CTA chest was performed; it is negative for PE and shows the patchy infiltrates seen on CXR. ED Disposition - Plan for ED Patient: Disposition: Acute Care Hospital [facility] Diagnosis: Pneumonia, Hypoxemia, Acute asthma exacerbation, Sepsis Referrals: Tamy Garcias MD [Primary Care Provider] -
[2020-08-04] MEDS: Albuterol 2.5 MG/3 ML VIAL.NEB. INHALATION (02:16)
[2020-08-04] MEDS: Ipratropium/Albuterol Sulfate 3 ML AMPUL.NEB INHALATION ×3 (02:17→20:13)
[2020-08-04] MEDS: predniSONE 20 MG Tablet 40 MG PO (02:33)
--- NOTE | 2020-08-04 03:40 | EKG12_ITS ---
Test Reason : PNEUMONIA Blood Pressure : / mmHG Vent. Rate : 095 BPM Atrial Rate : 095 BPM P-R Int : 168 ms QRS Dur : 080 ms QT Int : 368 ms P-R-T Axes : 030 -02 -05 degrees QTc Int : 462 ms Normal sinus rhythm Moderate voltage criteria for LVH, may be normal variant Borderline ECG Confirmed by JOVITA BRADFORD, JACIEL ([id number]), medical editor MOLINA HURT ([id number]) on 08/04/2020 10:38:57 AM Referred By: ROMARIO Confirmed By:JACIEL HUSSEIN MD
--- NOTE | 2020-08-04 03:59 | PCM.HP.STD ---
Problem List (1) Anxiety and depression Status: Chronic (2) Seasonal allergies Status: Chronic (3) Hypertension Status: Chronic (4) Hyperlipidemia Status: Chronic (5) Acute asthma exacerbation Status: Acute History of Present Illness Date of Admission: 08/04/20 Chief Complaint: SOB, cough, increased drainage - 2 days The patient is a 50 year old F with past medical history of asthma, breast CA in remission comes in with progressive shortness of breath, cough, ongoing for about 2 days. She admits to persistent sinus drainage Patient denies any fever or chills. Denied any sick contacts. She sleeps on 3 pillows because of GERD. Denied any leg edema or palpitations or chest pain. Vitals in the ED showed temperature of 98.2F, heart rate 99, blood pressure 154/110, respiratory rate is 20, SPO2 is 89% on room air, improved to 92% on room air. BC count is 9.2, hemoglobin 14.0, platelet count 185, D-dimer 0.76, sodium 141, potassium 3.2, chloride 106,, 28, BUN is 9 creatinine 0.86, lactic acid 1.3, troponin 0 0.015, COVID-19 rapid antigen negative. COVID-19 PCR pending. Blood cultures are pending. Chest x-ray showed possible multifocal pneumonitis. CT of the chest shows groundglass opacities, left upper lobe lung nodule Past Medical History Past Medical History (Chronic Problems): Chronic Problems Anxiety and depression (Chronic) Asthma (Chronic) Seasonal allergies (Chronic) Hypertension (Chronic) Hyperlipidemia (Chronic) Allergies clarithromycin [From Biaxin] Allergy (Verified 08/04/20 02:07) Unknown Penicillins Allergy (Verified 08/04/20 02:07) Hives Sulfa (Sulfonamide Antibiotics) Allergy (Verified 08/04/20 02:07) Hives sumatriptan [From Imitrex] Allergy (Verified 08/04/20 02:07) Unknown sumatriptan succinate [From Imitrex] Allergy (Verified 08/04/20 02:07) Unknown COUGH MED W/CODEINE Allergy (Uncoded 02/18/20 17:20) Unknown Home Medications: Ambulatory Orders Medication Instructions Recorded Cetirizine HCl [Zyrtec] 10 mg PO DAILY 06/05/13 Lorazepam [Ativan] 1 mg PO BID PRN 11/12/13 Sertraline HCl [Zoloft] 200 mg PO QHS 06/05/13 Simvastatin [Zocor] 40 mg PO QHS 06/05/13 buPROPion SR [Wellbutrin Sr] 150 mg PO BID 06/05/13 Gabapentin [Neurontin] 300 mg PO TIDCM 05/26/15 Carvedilol 3.125 mg PO BID 02/18/20 Cholecalciferol (VIT D3) [Vitamin 1,000 unit PO DAILY 02/18/20 D] Esomeprazole Mag Trihydrate 20 mg PO BID 02/18/20 [Nexium] Fluticasone 0.05% [Flonase Nasal 2 spray NASAL BID PRN 02/18/20 [place]] Losartan Potassium 50 mg PO DAILY 02/18/20 Ondansetron [Zofran Odt] 4 mg PO Q8H PRN PRN #15 tab 02/18/20 Sucralfate [Carafate] 1 gm PO 4X/DAY #560 ml 02/18/20 Surgical History: - - Status post breast biopsies, hysterectomy Psychiatric History: Anxiety, Depression 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 Denies: Anorexia, Chills, Fever, Night Sweats, Malaise, Weight Change Eyes: Denies: Blurred vision, Cataracts, Conjunctivae Inflammation, Pain, Redness, Vision Change HEENT: Reports: Nasal Congestion, Post Nasal Drip, Sinus Congestion, Sinus Drainage, Sore Throat. Denies: Difficulty Hearing, Difficulty Swallowing, Dysphasia, Hard of Hearing, Head Aches, Hearing Changes, Visual Changes Cardiovascular: Denies: Chest Pain, Claudication, Heaviness, Light Headedness, Orthopnea, Palpitations, Paroxysmal Noc. Dyspnea Respiratory: Reports: Cough, Shortness of Breath, Shortness of breath at rest, Shortness of breath upon exertion, Sputum production, Wheezing Gastrointestinal: Denies: Abdominal Pain, Constipation, Hematemesis, Hematochezia, Nausea, Vomiting Genitourinary: Denies: Dysuria, Frequency, Incontinence Musculoskeletal: Denies: Joint Pain, Joint stiffness, Joint swelling, Joint Tenderness Skin: Denies: Pruritis, Rash, Wounds Neurological: Denies: Difficulty swallowing, Focal weakness, Numbness, Tingling Psychiatric: Denies: Anxiety, Depression, Homicidal Ideations, Suicidal Ideations Hematologic/ Lymphatic: Denies: Easy Bruising, Easy Bleeding VTE Information - Inpt Only VTE Present on Admission: No VTE Pharm Prophylaxis ordered?: Yes Patient Problems: Active and Suspected Problems Pneumonia (Acute) Hypoxemia (Acute) Acute asthma exacerbation (Acute) Sepsis (Acute) - Physical Exam Vitals/I&O's: Vital Signs Temp Pulse Resp BP Pulse Ox 98.1 F 104 H 18 150/110 H 95 08/04/20 03:20 08/04/20 03:20 08/04/20 03:20 08/04/20 03:20 08/04/20 03:58 Oxygen Flow Rate (L/min) 2 Oxygen Delivery Method Nasal Cannula Weight: 103.5 kg Body Mass Index (BMI) 41.7 General: Alert, Oriented x3, Cooperative, No apparent distress, - - comfortable on 2L oxygen HEENT: Atraumatic, PERRLA, EOMI, Normocephalic Oral: Moist Mucosa Neck: Supple Lungs: Clear to auscultation, Normal air movement Cardiovascular: Regular rate, Regular Rhythm, Normal S1, Normal S2, No murmurs Abdomen: Bowel Sounds Present, Soft, Non Tender, Non-Distended, No Hepato-splenomegaly Extremities: No edema Skin: No rashes Musculoskeletal: No Tenderness to Palpation of Joints or Extremities Lymphatic: No Cervical, Supraclavicular, or Inguinal Adenopathy Neurological: Cranial nerves II-XII grossly intact, Neuro grossly intact Psych/Mental Status: Normal Affect, Appropriate Microbiology Past 72 Hours 08/04/20 03:03 Mucosa - Nose SARS-CoV-2 Antigen (Rapid) - Final Laboratory Results 08/04/20 02:15: COVID-19 ([facility]) Pending Current Medications Azithromycin 500 mg/ Dextrose 255 mls @ 250 mls/hr IV X1 ONE Stop: 08/04/20 04:35 Ceftriaxone Sodium (Rocephin) 1 gm in 50 mls @ 100 mls/hr IV X1 ONE Stop: 08/04/20 04:03 Assessment/Plan All Active Problems Pneumonia (Acute) Hypoxemia (Acute) Acute asthma exacerbation (Acute) Sepsis (Acute) 1. Acute hypoxic respiratory insufficiency secondary to Acute asthma exacerbation Continue with breathing treatments,po bsteroids, encourage use of incentive spirometer. Wean off oxygen for SPO2 more than 94% 2. Acute asthma exacerbation, likely post viral; acute COVID-19 rapid antigen and PCR negative Admitting chest x-ray and CT of the chest suggestive of bilateral interstitial infiltrates We will continue on IV Solu-Medrol, breathing treatment Check BNPep 3. Hypokalemia, replaced, recheck in a.m. 4. Incidental lung nodule, needs to follow-up in the outpatient 5. Hypertension/Hyperlipidemia, controlled, on continue with home carvedilol, losartan, simvastatin 6. Anxiety and Depression, on bupropion, lorazepam, Zoloft, continue home regimen. 7. Morbid obesity, BMI 41.7, complicates care, lifestyle modification recommended 8. DVT PPx-Lovenox BID Inpatient E&M: 22466 Init Hosp L2
[2020-08-04] MEDS: Ceftriaxone 1 GM/50 ML BAG IV (04:00)
[2020-08-04 04:04] LABS: Absolute Lymphocyte Count 0.89 X10^3/uL (0.83-4.51); Absolute Neutrophil Count 7.6 X10^3/uL (2.0-7.7); Basophil# 0.04 X10^3/uL; Basophil% 0.4 % (0-1); Eosinophil# 0.08 X10^3/uL; Eosinophils% 0.9 % (0-5); Hematocrit 42.7 % (37-47); Lymphocyte # 0.89 X10^3/ul (4.0); Lymphocyte % 9.7 % (19-41); Mean Corp Hgb Conc 32.8 g/dL (32-36); Mean Corpuscular Hgb 27.6 pg (27.0-32.0); Mean Corpuscular Volume 84.1 fL (81-99); Mean Platelet Vol. 10.1 fl (6.2-12.0); Monocyte# 0.52 X10^3/uL; Monocyte% 5.7 % (0-10); NRBC Flagged by Analyzer 0 % (0-5); Neutrophil # 7.61 X10^3/uL (2.7-7.7); Platelet Count 185 K/mm3 (150-450); RBC Distribution Width CV 13.1 % (11.6-14.6); RBC Distribution Width SD 40.4 fl (35.1-43.9); Red Blood Count 5.08 M/mm3 (4.2-5.4); White Blood Count 9.2 K/mm3 (4.4-11.0)
[2020-08-04 04:18] LABS: D-Dimer Quantitative (DVT/PE) 0.76 FEU/ug/m (0.27-0.49)
[2020-08-04 04:22] LABS: Anion Gap 7 (5-15); BUN 9 mg/dL (7-18); BUN/Creat Ratio 10.4 RATIO (10-20); Calcium,Total 8.5 mg/dL (8.5-10.1); Chloride 106 mmol/L (98-107); Creatinine, Serum 0.86 mg/dL (0.55-1.02); EST Glomerular Filtration Rate 74 mL/min (>60); Est Glom Filt Rate - Afr Amer 90 mL/min (>60); Estimated Creatinine Clearance 63.27 ml/min; Glucose 122 mg/dL (74-106); Potassium 3.2 mmol/L (3.5-5.1); Sodium Level 141 mmol/L (136-145)
[2020-08-04 04:27] LABS: Lactic Acid 1.3 mmol/L (0.4-1.9)
--- NOTE | 2020-08-04 04:31 | CT_ITS ---
STUDY: CTA CHEST REASON FOR EXAM: Female, 50 years old. COUGH AND CONGESTION X 1 WEEK, SOB AND CHEST TIGHTNESS TONIGHT, HX HTN, BREAST CA WITH LUMPECTOMY RADIATION DOSAGE (If Supplied By Facility): CTDIvol = ( 14.66 ) mGy, DLP = ( 542.65 ) mGycm TECHNIQUE: The examination was performed with the intravenous administration of IV 100mL Isovue-370. Post-processing of the angiographic images was performed, with multiplanar reformation, but without 3D reconstruction. Individualized dose optimization techniques were used for this CT. COMPARISON: Chest x-ray 08/04/2020. CT PET scan 01/03/2017. FINDINGS: Normal enhancement of the main pulmonary artery and right and left pulmonary arteries. Normal enhancement of the bilateral peripheral pulmonary arteries. There is no demonstrated pulmonary embolism. Normal thoracic aorta and visualized great vessels. There is no demonstrated aortic dissection. Normal heart and pericardium. Normal mediastinum. Normal hilar regions. Normal visualized trachea and bronchi. The lungs are well expanded. As seen on series 2, axial image 215, there is a 6.9 x 4.1 mm solid-appearing noncalcified left upper lobe lung nodule (average diameter 5.5 mm). As seen on axial image 180, there is a 5.6 mm solid-appearing noncalcified left upper lobe lung nodule. Additional groundglass type nodular densities are seen in the lungs bilaterally along with some fairly dense patchy groundglass opacities. Finding is nonspecific, possibly representing viral pneumonia or inflammatory process. There is no demonstrated dense pulmonary consolidation. Normal pleura. Normal chest wall structures. There are degenerative changes of thoracic spine. There is a moderately large hiatal hernia. There is fatty infiltration of the liver. The spleen is enlarged. There is a 1.2 cm right adrenal nodule, which is low in attenuation and consistent with an adenoma. CT/CTA Chest W/WO Contrast IMPRESSION: Normal CTA chest examination, without a demonstrated pulmonary embolism, aortic aneurysm, or aortic dissection. Small scattered groundglass nodular densities as well as small patchy groundglass densities in the lungs are nonspecific in appearance and might represent inflammatory process or viral pneumonia. No demonstrated dense pulmonary consolidation. 5.5 mm and 5.6 mm noncalcified solid appearing left upper lobe lung nodules. Based on Fleischner Society Guidelines, suggested follow-up for a 4-6 mm lung nodule is as follows: Low risk patients: Follow-up CT Chest at 12 months. If no change, no further imaging needed. High risk patients: Initial follow-up CT Chest at 6 -12 months and then at 18 - 24 months if no change. Hiatal hernia. Fatty liver. Splenomegaly. Right adrenal adenoma. Electronically Signed: Gregory Call MD at 5:20 EST , Service support ,
--- NOTE | 2020-08-04 07:57 | PCM.HOSP.N ---
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 Patient is on bronchodilator, steroid, incentive spirometry. She has history of seasonal asthma/allergy but never had spirometry or PFT. Patient does not follow any senior applications architect. CT chest shows bilateral interstitial infiltrates. BNP 10. Troponin negative. Procalcitonin 0.1 which just above no high risk for severe sepsis or septic shock. 1. Acute hypoxic respiratory insufficiency secondary to Acute asthma exacerbation continue bronchodilator, steroid, incentive spirometry.Wean off oxygen for SPO2 more than 94% 2. Acute asthma exacerbation, likely post viral; acute COVID-19 rapid antigen and PCR negative. Admitting CT chest shows bilateral interstitial infiltrates. BNP normal 3. Hypokalemia: Replaced. Monitor labs. 4. Incidental lung nodule, needs to follow-up in the outpatient 5. Hypertension/Hyperlipidemia, controlled, on continue with home carvedilol, losartan, simvastatin 6. Anxiety and Depression, continued on home medications bupropion, lorazepam, Zoloft. 7. Morbid obesity, BMI 41.7, complicates care, lifestyle modification recommended 8. DVT PPx-Lovenox BID Clinical Impression(s) from Imaging Studies Chest X-Ray 08/04/20 02:09 IMPRESSION: Possible multifocal pneumonitis versus artifact related to vascular crowding. Postoperative changes as described. Remainder of the exam unremarkable. Electronically Signed: Shelly Beckett MD at 3:06 EST , Service support , Chest CTA 08/04/20 04:31 IMPRESSION: Normal CTA chest examination, without a demonstrated pulmonary embolism, aortic aneurysm, or aortic dissection. Small scattered groundglass nodular densities as well as small patchy groundglass densities in the lungs are nonspecific in appearance and might represent inflammatory process or viral pneumonia. No demonstrated dense pulmonary consolidation. 5.5 mm and 5.6 mm noncalcified solid appearing left upper lobe lung nodules. Based on Fleischner Society Guidelines, suggested follow-up for a 4-6 mm lung nodule is as follows: Low risk patients: Follow-up CT Chest at 12 months. If no change, no further imaging needed. High risk patients: Initial follow-up CT Chest at 6 -12 months and then at 18 - 24 months if no change. Hiatal hernia. Fatty liver. Splenomegaly. Right adrenal adenoma.
[2020-08-04 08:25] LABS: BNP,B-Type NATRIURETIC PEPTIDE 10.2 pg/mL (0-100)
[2020-08-04 08:34] LABS: Procalcitonin 0.11 ng/mL (0.00-0.09)
[2020-08-04] MEDS: Gabapentin 300 MG Capsule PO ×3 (09:05→16:57)
[2020-08-04] MEDS: Acetaminophen 325 MG Tablet 650 MG PO ×2 (09:05→21:27)
[2020-08-04] MEDS: Carvedilol 3.125 MG TABLET PO ×2 (09:06→21:22)
[2020-08-04] MEDS: Pantoprazole Sodium 20 MG Tablet PO ×2 (09:06→21:23)
[2020-08-04] MEDS: Losartan Potassium 50 MG Tablet PO (09:06)
[2020-08-04] MEDS: buPROPion (SR) 150 MG Tablet.SA PO ×2 (09:06→21:23)
[2020-08-04] MEDS: Loratadine 10 MG Tablet PO (09:06)
[2020-08-04] MEDS: Enoxaparin 40 MG/0.4 ML Syringe SC (10:59)
--- NOTE | 2020-08-04 11:11 | CASEMGMT ---
FRANCISCO DRIVER assessment: Phone interview with patient for initial transition planning/care coordination assessment due to pt currently in precautions. FRANCISCO DRIVER introduced self and role at [facility], pt voices understanding and consents to assessment at this time. Pt is A/Ox4 at this time and answers all questions appropriately at this time. Care providers, pharmacy, and demographics verified at this time. Presentation: Pt w/ cough/congestion for 1 week, pt started to have SOB and chest tightness tonight-pt with hx asthma Admitting dx: Hypoxia PCP: Dieter Specialists: tang Corona Preferred [facility]acy: [facility] Insurance: [facility] Prescription Benefit: [facility] Living Will/HPOA: Pt states does not have LW/HPOA, but is interested in AD info at this time. Pt provided AD info by this FRANCISCO DRIVER at this time and voices no further questions/concerns at this time. LNOK: Carmen Holloway, sister; Peg Dumas, friend Living Arrangements: Pt states lives alone in apt with a flight of stairs and states no concerns at home at this time. Pt states is independent with ADL's. Transportation: Pt states drives self and states no transportation concerns at this time. DME/HHC: Pt states no current DME or need for any at this time. Pt states no hx of HHC or SNF in the past. Pt states no concerns with going home at time of discharge. Pt states has a pending disability claim. Pt states does not smoke cigarettes or drink ETOH. Pt states no further concerns/needs at this time. CM to follow for any further discharge planning/needs. Advised pt to ask for CM if any further questions/concerns/needs arise, voices understanding. Pt Goal: Home Plan: [place] FRANCISCO DRIVER
[2020-08-04] MEDS: 0.9% Saline Lock 10 ML Syringe IV ×2 (13:09→21:22)
[2020-08-04] MEDS: LORazepam 1 MG Tablet PO ×2 (13:09→21:24)
[2020-08-04] MEDS: Sucralfate 1 GM Tablet PO ×3 (13:09→21:23)
[2020-08-04] MEDS: Sertraline 100 MG Tablet 200 MG PO (21:23)
[2020-08-04] MEDS: Atorvastatin Calcium 20 MG Tablet PO (21:23)
--- NOTE | 2020-08-04 22:11 | PCS.PANDOC ---
PANDEMIC DOCUMENTATION INITIATED: Date: 08/04/2020 Time: 0700
[2020-08-05] VITALS (8 sets, daily range): BP systolic 147–148; BP diastolic 88–91; PULSE 81–97; RESP 16–20; TEMP 36.4–36.7; O2SAT 89–97
[2020-08-05 05:45] LABS: Absolute Lymphocyte Count 0.63 X10^3/uL (0.83-4.51); Absolute Neutrophil Count 7.1 X10^3/uL (2.0-7.7); Basophil# 0.01 X10^3/uL; Basophil% 0.1 % (0-1); Hematocrit 42.2 % (37-47); Hemoglobin 13.6 g/dL (12.0-15.0); Lymphocyte # 0.63 X10^3/ul (4.0); Lymphocyte % 7.9 % (19-41); Mean Corp Hgb Conc 32.2 g/dL (32-36); Mean Corpuscular Volume 83.7 fL (81-99); Mean Platelet Vol. 9.8 fl (6.2-12.0); Monocyte% 2.5 % (0-10); NRBC Flagged by Analyzer 0 % (0-5); Neutrophil # 7.07 X10^3/uL (2.7-7.7); Neutrophil % 89.1 % (47-70); Platelet Count 200 K/mm3 (150-450); RBC Distribution Width CV 13.2 % (11.6-14.6); RBC Distribution Width SD 40.5 fl (35.1-43.9); Red Blood Count 5.04 M/mm3 (4.2-5.4); White Blood Count 7.9 K/mm3 (4.4-11.0)
[2020-08-05 06:13] LABS: ALB/GLOB Ratio 0.9 RATIO (0.9-2.4); AST(SGOT) 15 U/L (15-37); Alanine Aminotransfer ALT/SGPT 33 U/L (13-56); Albumin, Serum 3.6 g/dL (3.2-5.0); Alkaline Phosphatase 88 U/L (45-117); Anion Gap 6 (5-15); BUN 14 mg/dL (7-18); BUN/Creat Ratio 16.6 RATIO (10-20); Calcium,Total 9.2 mg/dL (8.5-10.1); Chloride 107 mmol/L (98-107); Creatinine, Serum 0.84 mg/dL (0.55-1.02); EST Glomerular Filtration Rate 77 mL/min (>60); Est Glom Filt Rate - Afr Amer 93 mL/min (>60); Estimated Creatinine Clearance 64.78 ml/min; Globulin 3.8 g/dL (2.2-4.2); Glucose 145 mg/dL (74-106); Potassium 4.4 mmol/L (3.5-5.1); Protein, Total 7.4 g/dL (6.4-8.2); Sodium Level 138 mmol/L (136-145)
[2020-08-05] MEDS: Ipratropium/Albuterol Sulfate 3 ML AMPUL.NEB INHALATION ×2 (06:46→11:04)
[2020-08-05] MEDS: Sucralfate 1 GM Tablet PO ×2 (06:52→10:55)
[2020-08-05] MEDS: 0.9% Saline Lock 10 ML Syringe IV (06:52)
[2020-08-05] MEDS: Acetaminophen 325 MG Tablet 650 MG PO (08:57)
[2020-08-05] MEDS: LORazepam 1 MG Tablet PO (08:58)
[2020-08-05] MEDS: Gabapentin 300 MG Capsule PO ×2 (08:58→11:41)
[2020-08-05] MEDS: Carvedilol 3.125 MG TABLET PO (09:10)
[2020-08-05] MEDS: Loratadine 10 MG Tablet PO (09:10)
[2020-08-05] MEDS: Pantoprazole Sodium 20 MG Tablet PO (09:11)
[2020-08-05] MEDS: buPROPion (SR) 150 MG Tablet.SA PO (09:11)
[2020-08-05] MEDS: Enoxaparin 40 MG/0.4 ML Syringe SC (09:11)
[2020-08-05] MEDS: Losartan Potassium 50 MG Tablet PO (09:11)
--- NOTE | 2020-08-05 09:45 | PCM.DC ---
- Discharge Diagnoses Current Active Problems: Current Active and Chronic Problems Anxiety and depression (Chronic) Asthma (Chronic) Seasonal allergies (Chronic) Hypertension (Chronic) Hyperlipidemia (Chronic) Pneumonia (Acute) Hypoxemia (Acute) Acute asthma exacerbation (Acute) Sepsis (Acute) You will use the following diet at home:: Cardiac Your food should be the consistency of: Regular Your liquids should be the consistency of: Regular/Thin Discharge Activity: Return to Normal Activity Call your doctor if you observe: Fever of 101 or Higher, Coldness, Increased Pain, Numbness or Tingling, Change in Color, Inability to urinate, Inability to have a bowel movement, Using more than one pad per hour, Shortness of breath, Dizziness, Fainting spells, Swelling in the ankles, Chest pain, Prolonged hiccoughing, Increased palpitations (irregular heartbeat), Calf discomfort, Uncontrolled pain Allergies/Adverse Reactions: Allergies clarithromycin [From Biaxin] Allergy (Verified 08/04/20 02:07) Unknown Penicillins Allergy (Verified 08/04/20 02:07) Hives Sulfa (Sulfonamide Antibiotics) Allergy (Verified 08/04/20 02:07) Hives sumatriptan [From Imitrex] Allergy (Verified 08/04/20 02:07) Unknown sumatriptan succinate [From Imitrex] Allergy (Verified 08/04/20 02:07) Unknown COUGH MED W/CODEINE Allergy (Uncoded 02/18/20 17:20) Unknown Medications to take at Discharge Cetirizine HCl [Zyrtec] 10 mg PO DAILY 06/05/13 Lorazepam [Ativan] 1 mg PO BID PRN 06/05/13 Sertraline HCl [Zoloft] 200 mg PO QHS 06/05/13 Simvastatin [Zocor] 40 mg PO QHS 06/05/13 buPROPion SR [Wellbutrin SR (150mg tablets)] 150 mg PO BID 06/05/13 Gabapentin [Neurontin] 300 mg PO TIDCM 05/26/15 Carvedilol 3.125 mg PO BID 02/18/20 Cholecalciferol (VIT D3) [Vitamin D3] 1,000 unit PO DAILY 02/18/20 Esomeprazole Mag Trihydrate [Nexium] 20 mg PO BID 02/18/20 Fluticasone 0.05% [Flonase Nasal [place]] 2 spray NASAL BID PRN 02/18/20 Losartan Potassium 50 mg PO DAILY 02/18/20 Ondansetron [Zofran Odt] 4 mg PO Q8H PRN PRN #15 tab 02/18/20 Sucralfate [Carafate] 1 gm PO 4X/DAY #560 ml 02/18/20 Guaifenesin [Mucinex] 1,200 mg PO BID #14 tab.er.12h 08/05/20 Prednisone 10 mg PO DAILY #30 tab 08/05/20 The following prescriptions were given: Guaifenesin [Mucinex] 1,200 mg PO BID #14 tab.er.12h Transmission Status: [id number] Prednisone 10 mg PO DAILY #30 tab Transmission Status: [id number] Primary Care Physician: Tamy Garcias MD [Primary Care Provider] - Please follow up with your Primary Care Physician in: IN 1-2 WEEKS Test Results: Test results from this visit will be discussed in further detail at your follow-up appointment, if applicable. Please Follow Up With: Indra Amado MD When: FOR PFT in 2-3 weeks, Asthma
--- NOTE | 2020-08-05 09:46 | PCM.DC.SUM ---
Discharge Date and Diagnosis - Problem List Patient Problems: Active and Suspected Problems Pneumonia (Acute) Hypoxemia (Acute) Acute asthma exacerbation (Acute) Sepsis (Acute) Date of Admission: 08/04/20 Date of Discharge: 08/05/20 - Primary Discharge Diagnosis Acute Problems: Active Problems Pneumonia (Acute) Hypoxemia (Acute) Acute asthma exacerbation (Acute) Sepsis (Acute) - Secondary Discharge Diagnosis Chronic Problems: Chronic Problems Anxiety and depression (Chronic) Asthma (Chronic) Seasonal allergies (Chronic) Hypertension (Chronic) Hyperlipidemia (Chronic) Hospital Course and Treatment Summary of Care Provided: The patient is a 50 year old F who was admitted with shortness of breath, wheezing suggestive acute hypoxic respiratory insufficiency due to acute asthma exacerbation. Patient has history of seasonal asthma/allergy but never had spirometry or PFT. CT chest shows bilateral interstitial infiltrates. BNP 10. Troponin negative. Procalcitonin 0.1 which just above no high risk for severe sepsis or septic shock. [] 1. Acute hypoxic respiratory insufficiency secondary to Acute asthma exacerbation: Patient was admitted in PCU. Was first managed with scheduled bronchodilator, steroid, incentive spirometry.Wean off oxygen for SPO2 more than 94%. Patient pulse ox 94% on room air and 89% on ambulation. Hypoxia resolved. 2. Acute asthma exacerbation, likely post viral; acute COVID-19 rapid antigen and PCR negative. Admitting CT chest shows bilateral interstitial infiltrates. BNP normal. Patient was advised to follow-up in pulmonary clinic with Dr. Amado in 2 to 3 weeks for PFT for further diagnosis of asthma, its type and severity. Her follows Dr. Amado. 3. Hypokalemia: Replaced. Repeat K4.4. 4. Incidental lung nodule, needs to follow-up in the outpatient 5. Hypertension/Hyperlipidemia, controlled, on continue with home carvedilol, losartan, simvastatin 6. Anxiety and Depression, continued on home medications bupropion, lorazepam, Zoloft. 7. Morbid obesity, BMI 41.7, complicates care, lifestyle modification recommended 8. DVT PPx-Lovenox BID Discharge medication reconciliation done. Discharge follow-up instructions completed. Discharge process discussed with the patient and all questions were answered to patient's satisfaction. Total time spent, exact 35 minutes on discharge meds reconciliation, examination, coordination of care with nurses and ancillary staff, review of imaging and blood test and discussion with the patient on follow-up instructions Patient Problems: Active and Suspected Problems Pneumonia (Acute) Hypoxemia (Acute) Acute asthma exacerbation (Acute) Sepsis (Acute) Objective: Heart rate and blood pressure are controlled. Pulse ox 94% at rest on room air. Physical exam General: Alert, Oriented x3, Cooperative HEENT: Atraumatic, PERRLA, EOMI, Normocephalic Oral: No Gingival or Mucosal Lesions/ Ulcerations Neck: Supple, No JVD, Negative Carotid Bruits Lungs: Air entry diminished in bilateral lung bases. No crepitation/rhonchi no hypoxia or tachypnea. Cardiovascular: Regular rate, Regular Rhythm, Normal S1, Normal S2, No murmurs Abdomen: Bowel Sounds Present, Soft, Non Tender, Non-Distended : No renal angle tenderness. No suprapubic tenderness. Extremities: No edema, Capillary Refill Less than 3 Seconds Skin: No rashes, No breakdown Musculoskeletal: No Tenderness to Palpation of Joints or Extremities Neurological: Cranial nerves II-XII grossly intact, Deep Tendon Reflexes 2+/4 and Symmetrical, Neuro grossly intact Psych/Mental Status: Normal Affect, Appropriate. - Physical Exam Vitals/I&O's: Vital Signs Temp Pulse Resp BP Pulse Ox 97.5 F L 83 16 147/91 H 97 08/05/20 09:00 08/05/20 09:00 08/05/20 09:00 08/05/20 09:00 08/05/20 09:06 Oxygen Flow Rate (L/min) 2 Oxygen Delivery Method Room Air Weight: 223 lb 15.834 oz Body Mass Index (BMI) 40.9 Intake and Output for Last 24 Hours 08/03/20 08/04/20 08/05/20 23:59 23:59 23:59 Intake Total 5537.88 / 5537.88 500 / 500 Balance 5537.88 / 5537.88 500 / 500 Microbiology Past 72 Hours 08/04/20 09:10 Sputum, Expectorated/Coughed Gram Stain - Final 08/04/20 07:35 Mucosa - Nasopharyngeal Respiratory Panel (PCR) - Final 08/04/20 08:40 Urine, Clean Catch Legionella Antigen - Final 08/04/20 08:40 Urine, Clean Catch Streptococcus pneumoniae Antigen (M - Final 08/04/20 03:03 Mucosa - Nose SARS-CoV-2 Antigen (Rapid) - Final Laboratory Results 08/05/20 05:20: WBC 7.9, RBC 5.04, Hgb 13.6, Hct 42.2, MCV 83.7, MCH 27.0, MCHC 32.2, RDW Std Deviation 40.5, RDW Coeff of Ho 13.2, Plt Count 200, MPV 9.8, Immature Gran % (Auto) 0.400, Neut % (Auto) 89.1 H, Lymph % (Auto) 7.9 L, [place] % (Auto) 2.5, Eos % (Auto) 0.0, Baso % (Auto) 0.1, Absolute Neuts (auto) 7.1, Absolute Lymphs (auto) 0.63 L, Nucleated RBC % 0 08/05/20 05:20: Sodium 138, Potassium 4.4, Chloride 107, Carbon Dioxide 25.0, Anion Gap 6, BUN 14, Creatinine 0.84, Estim Creat Clear Calc 64.78, Est GFR (MDRD) Af Amer 93, Est GFR (MDRD) Non-Af 77, BUN/Creatinine Ratio 16.6, Glucose 145 H, Calcium 9.2, Total Bilirubin 0.40, AST 15, ALT 33, Alkaline Phosphatase 88, Total Protein 7.4, Albumin 3.6, Globulin 3.8, Albumin/Globulin Ratio 0.9 Current Medications Acetaminophen (Acetaminophen 325 Mg Tablet) 650 mg PO Q6H PRN PRN PRN Reason: Pain Score 1-10/Temp > 100.7 F Last Admin: 08/05/20 08:57 Dose: 650 mg Documented by: Al Hydroxide/Mg Hydroxide (Mag Hydrox/Al Hydrox/Simeth 30 Ml Udc) 30 ml PO Q6H PRN PRN PRN Reason: Gastric Burning Albuterol Sulfate (Albuterol 2.5 Mg/3 Ml Vial.Neb.) 2.5 mg INHALATION Q2H PRN PRN Reason: SOB &/OR WHEEZING Albuterol/Ipratropium (Ipratropium/Albuterol Sulfate 3 Ml Ampul.Neb) 3 ml INHALATION Q4HWA.RT IJEOMA Last Admin: 08/05/20 06:46 Dose: 3 ml Documented by: Atorvastatin Calcium (Atorvastatin Calcium 20 Mg Tablet) 20 mg PO QHS IJEOMA Last Admin: 08/04/20 21:23 Dose: 20 mg Documented by: Bupropion HCl (Bupropion (Sr) 150 Mg Tablet.Sa) 150 mg PO BID [facility] Last Admin: 08/05/20 09:11 Dose: 150 mg Documented by: Carvedilol (Carvedilol 3.125 Mg Tablet) 3.125 mg PO BID [facility] Last Admin: 08/05/20 09:10 Dose: 3.125 mg Documented by: Cholecalciferol (Cholecalciferol (Vit D3) 1,000 Unit (25mcg)) 1,000 unit PO DAILY [facility] Last Admin: 08/05/20 09:11 Dose: 1,000 unit Documented by: Enoxaparin Sodium (Enoxaparin 40 Mg/0.4 Ml Syringe) 40 mg SC DAILY [facility] Last Admin: 08/05/20 09:11 Dose: 40 mg Documented by: Fluticasone Propionate (Fluticasone 0.05% 1 [place] Nasal.Sry) 2 spray NASAL BID PRN PRN Reason: ALLERGIES Gabapentin (Gabapentin 300 Mg Capsule) 300 mg PO TIDCM [facility] Last Admin: 08/05/20 08:58 Dose: 300 mg Documented by: Loratadine (Loratadine 10 Mg Tablet) 10 mg PO DAILY [facility] Last Admin: 08/05/20 09:10 Dose: 10 mg Documented by: Lorazepam (Lorazepam 1 Mg Tablet) 1 mg PO BID PRN PRN Reason: ANXIETY Last Admin: 08/05/20 08:58 Dose: 1 mg Documented by: Losartan Potassium (Losartan Potassium 50 Mg Tablet) 50 mg PO DAILY [facility] Last Admin: 08/05/20 09:11 Dose: 50 mg Documented by: Methylprednisolone (Methylprednisolone 40 Mg/Ml Vial) 40 mg IV Q8 [facility] Last Admin: 08/05/20 06:52 Dose: 40 mg Documented by: Ondansetron HCl (Ondansetron 4 Mg/2 Ml Vial) 4 mg IV Q8H PRN PRN PRN Reason: NAUSEA/VOMITING Pantoprazole Sodium (Pantoprazole Sodium 20 Mg Tablet) 20 mg PO BID [facility] Last Admin: 08/05/20 09:11 Dose: 20 mg Documented by: Sertraline HCl (Sertraline 100 Mg Tablet) 200 mg PO QHS [facility] Last Admin: 08/04/20 21:23 Dose: 200 mg Documented by: Sodium Chloride (0.9% Saline Lock 10 Ml Syringe) 10 - 40 ml IV UD PRN PRN Reason: SALINE FLUSH Last Admin: 08/05/20 06:52 Dose: 10 ml Documented by: Sucralfate (Sucralfate 1 Gm Tablet) 1 gm PO 1HR_ACHS IJEOMA Last Admin: 08/05/20 06:52 Dose: 1 gm Documented by: Discharge Activity: Return to Normal Activity Call your doctor if you observe: Fever of 101 or Higher, Coldness, Increased Pain, Numbness or Tingling, Change in Color, Inability to urinate, Inability to have a bowel movement, Using more than one pad per hour, Shortness of breath, Dizziness, Fainting spells, Swelling in the ankles, Chest pain, Prolonged hiccoughing, Increased palpitations (irregular heartbeat), Calf discomfort, Uncontrolled pain Home Medications: Medications to take at Discharge Cetirizine HCl [Zyrtec] 10 mg PO DAILY 06/05/13 Lorazepam [Ativan] 1 mg PO BID PRN 06/05/13 Sertraline HCl [Zoloft] 200 mg PO QHS 06/05/13 Simvastatin [Zocor] 40 mg PO QHS 06/05/13 buPROPion SR [Wellbutrin SR (150mg tablets)] 150 mg PO BID 06/05/13 Gabapentin [Neurontin] 300 mg PO TIDCM 05/26/15 Carvedilol 3.125 mg PO BID 02/18/20 Cholecalciferol (VIT D3) [Vitamin D3] 1,000 unit PO DAILY 02/18/20 Esomeprazole Mag Trihydrate [Nexium] 20 mg PO BID 02/18/20 Fluticasone 0.05% [Flonase Nasal [place]] 2 spray NASAL BID PRN 02/18/20 Losartan Potassium 50 mg PO DAILY 02/18/20 Ondansetron [Zofran Odt] 4 mg PO Q8H PRN PRN #15 tab 02/18/20 Sucralfate [Carafate] 1 gm PO 4X/DAY #560 ml 02/18/20 Guaifenesin [Mucinex] 1,200 mg PO BID #14 tab.er.12h 08/05/20 Prednisone 10 mg PO DAILY #30 tab 08/05/20 Following Prescriptions Were Given to Patient: Guaifenesin [Mucinex] 1,200 mg PO BID #14 tab.er.12h Transmission Status: [id number] Prednisone 10 mg PO DAILY #30 tab Transmission Status: [id number] Primary Care Physician: Tamy Garcias MD [Primary Care Provider] - Please follow up with your Primary Care Physician in: IN 1-2 WEEKS Please Follow Up With: Indra Amado MD When: FOR PFT in 2-3 weeks, Asthma Medical Necessity - Tobacco Use Smoking Status: Former smoker Tobacco Use: Non-smoker Meaningful Use Info Meaningful Use Diagnoses (Choose all that apply): None applicable Inpatient E&M: 20430 Disch Hosp
--- NOTE | 2020-08-05 11:58 | PHA.DC.MC ---
Pharmacy Service has performed discharge medication reconciliation and counseling for this patient. 1. MUCINEX 1200MG PO BID x 7 DAYS 2. PREDNISONE 40MG PO X 3 DAYS, 30MG PO X 3 DAYS, 20MG PO X 3 DAYS, THEN 10MG PO X 3 DAYS The patient's discharge medication list was reviewed for discrepancies and discrepancies were resolved. Home Medications Cetirizine HCl [Zyrtec] 10 mg PO DAILY 06/05/13 Lorazepam [Ativan] 1 mg PO BID PRN 06/05/13 Sertraline HCl [Zoloft] 200 mg PO QHS 06/05/13 Simvastatin [Zocor] 40 mg PO QHS 06/05/13 buPROPion SR [Wellbutrin SR (150mg tablets)] 150 mg PO BID 06/05/13 Gabapentin [Neurontin] 300 mg PO TIDCM 05/26/15 Carvedilol 3.125 mg PO BID 02/18/20 Cholecalciferol (VIT D3) [Vitamin D3] 1,000 unit PO DAILY 02/18/20 Esomeprazole Mag Trihydrate [Nexium] 20 mg PO BID 02/18/20 Fluticasone 0.05% [Flonase Nasal [place]] 2 spray NASAL BID PRN 02/18/20 Losartan Potassium 50 mg PO DAILY 02/18/20 Ondansetron [Zofran Odt] 4 mg PO Q8H PRN PRN #15 tab 02/18/20 Sucralfate [Carafate] 1 gm PO 4X/DAY #560 ml 02/18/20 Guaifenesin [Mucinex] 1,200 mg PO BID #14 tab.er.12h 08/05/20 Prednisone 10 mg PO DAILY #30 tab 08/05/20 The patient was counseled on the following discharge medications and changes in medications for homegoing were reviewed. The Reason for Use, instructions for use, and potential side effects were reviewed for all new medications. The patient's questions regarding all of their medications were answered. The patient was able to verbally demonstrate an understanding of their discharge medications. Patient counseled by pharmacy benefits coordinator
--- NOTE | 2020-08-06 15:38 | CASEMGMT ---
Addendum entered by Tiara Langley 08/06/20 15:57: This RN CM received call back from pt at this time. Pt states she has been doing 'good' since discharge, just a little tired but took a nap today. Pt states no questions regarding discharge instructions/medications at this time. Pt states has f/u appts scheduled and sees PCP tomorrow. Pt states she is going to continue with cardiac diet that hospitalist put her on here to improve her eating/health. Pt states no suggestions for [facility] at this time and states 'The nurses/aides/respiratory, they were all great!' Pt voices no further questions/concerns/needs at this time. Sukh SINGH CM Original Note: RN CM Discharge F/U Phone Call LACE: 10 Strata: 3 Discharge date: 08/05/20 Call date: 08/06/20 Call time: [phone] Attempted to reach pt without success at this time, message left with pt to call this RN NEISHA if/when able. Sukh SINGH CM Admission dx: Hypoxia
== END 2020-08-05 11:50 | disposition home or self-care (01) | DRG 141 ==
LOC: ED 03:38 → PCU 07:15
PROVIDERS: Admitting Provider Internal Medicine; Emergency Provider Emergency Medicine; PCP Internal Medicine; Visit Provider Internal Medicine
DX: J45.901 Unspecified asthma with (acute) exacerbation (principal); J18.9 Pneumonia, unspecified organism; R09.02 Hypoxemia; E87.6 Hypokalemia; Z20.822 Contact with and (suspected) exposure to COVID-19; I10 Essential (primary) hypertension; E78.5 Hyperlipidemia, unspecified; K21.9 Gastro-esophageal reflux disease without esophagitis; F32.9 Major depressive disorder, single episode, unspecified; F41.9 Anxiety disorder, unspecified; E66.01 Morbid (severe) obesity due to excess calories; Z68.41 Body mass index [BMI] 40.0-44.9, adult; Z79.899 Other long term (current) drug therapy; Z87.891 Personal history of nicotine dependence; Z85.3 Personal history of malignant neoplasm of breast
CPT/HCPCS: 36415; 71045; 71275; 80048; 80053; 83605; 83880; 84145; 84484; 85025; 85379; 87040; 87070; 87077; 87186; 87205; 87426; 87449; 87633; 87635; 93005; 94640; 99251; 99284; J7050; Q9967; 90686; A4216; G0463; U0002; U0003

== ENCOUNTER 2020-09-22 14:42 | Emergency (ER) | payer MEDICAID, SELFPAY ==
[2020-09-17 10:42] VITALS: BMI 42.6
[2020-09-22 14:44] VITALS: BP 154/135; PULSE 111; RESP 18; TEMP 36.1; O2SAT 96; BMI 42.0
--- NOTE | 2020-09-22 14:51 | ED.DCSUM_ITS ---
History of Present Illness Chief Complaint: Hypertension Informant: Patient Narrative: 50-year-old female presenting with chills, slight cough, slight shortness of breath, elevated blood pressure. Patient states that she was on chemotherapy 7 years ago and was told by her doctor that this could be causing her elevated blood pressure today. Patient states she checked her blood pressure 3 times over an hour and a half but did not rest in between blood pressure readings. Patient is not having chest pain. Patient is on carvedilol 3.125 milligrams twice daily and losartan 50 mg once daily. Patient is not had a change in her medications. - Past Medical History (1) Anxiety and depression Status: Chronic (2) Asthma Status: Chronic (3) Seasonal allergies Status: Chronic (4) Hypertension Status: Chronic (5) Hyperlipidemia Status: Chronic Past Medical History - Allergies and Home Meds Allergies/Adverse Reactions: Allergies clarithromycin [From Biaxin] Allergy (Verified 09/22/20 14:47) Unknown Penicillins Allergy (Verified 09/22/20 14:47) Hives Sulfa (Sulfonamide Antibiotics) Allergy (Verified 09/22/20 14:47) Hives sumatriptan [From Imitrex] Allergy (Verified 09/22/20 14:47) Unknown sumatriptan succinate [From Imitrex] Allergy (Verified 09/22/20 14:47) Unknown COUGH MED W/CODEINE Allergy (Uncoded 09/22/20 14:47) Unknown Primary Care Physician: Tamy Garcias MD [Primary Care Provider] - Prior records reviewed: Yes Past Medical History: - - Reviewed in problem list Surgical History: noncontributory, - - Status post breast biopsies, hysterectomy Lives: Alone Smoking Status: Former smoker Alcohol: None Drugs: None - Family History Maternal Family History: Family History (Last Reviewed 09/17/20 @ 10:48 by Susanne Robb) Mother CVA (cerebral vascular accident) Myocardial infarction Sister Cancer Sister Cancer Family History: Reports: Cancer Paternal Family History: Family History (Last Reviewed 09/17/20 @ 10:48 by Susanne Robb) Mother CVA (cerebral vascular accident) Myocardial infarction Sister Cancer Sister Cancer Family History: Reports: Hypertension Review of Systems General: Reports: Chills. Denies: Fever, Sweats Eyes: Denies: Visual changes - bilaterally, Diplopia ENT: Denies: Bilateral ear pain, Left ear pain Cardiovascular: Denies: Chest pain, Palpitations Respiratory: Reports: Dyspnea, Cough Gastrointestinal: Denies: Abdominal pain, Nausea, Vomiting Genitourinary: Denies: Dysuria, Hematuria Musculoskeletal: Denies: Myalgias, Arthralgias Skin: Denies: Rash, Abscess Neurological: Denies: Headache, Weakness, Parasthesia Physical Exam Vital Signs/Narrative: Vital Signs Temp Pulse Resp BP Pulse Ox 09/22/20 14:44 97.0 F L 111 H 18 154/135 H 96 Inital Vital Signs reviewed: Yes General: Well nourished, No Acute Distress Head: Normocephalic, Atraumatic Eyes: Perrl, EOMI ENT: Moist mucous membranes, No rhinorrhea Cardiovascular: Regular rate, Regular rhythm Respiratory: No distress, CTA bilaterally Extremities: Nontender, No edema Skin: Normal color, No rash. Negative for: Cyanosis, Diaphoresis Neurological: Alert, Oriented x3, Cranial nerves II-XII grossly intact Psychological: Normal affect, Normal Mood Diagnostic/Tx/Re-eval Clinical Impression(s) from Imaging Studies Chest X-Ray 09/22/20 15:35 IMPRESSION: Focal right upper lobe pneumonia. Electronically Signed: Gustavo Singh MD at 16:03 EST Tel , Service support , Laboratory Data 09/22/20 09/22/20 15:45 15:45 WBC 3.2 L RBC 4.27 Hgb 13.2 Hct 37.2 MCV 87.1 MCH 30.9 MCHC 35.5 RDW Std Deviation 43.3 RDW Coeff of Ho 15.5 H Plt Count 104 L MPV 9.6 Immature Gran % (Auto) 0.300 Neut % (Auto) 70.3 H Lymph % (Auto) 15.5 L [place] % (Auto) 12.3 H Eos % (Auto) 1.3 Baso % (Auto) 0.3 Absolute Neuts (auto) 2.2 Absolute Lymphs (auto) 0.49 L Nucleated RBC % 0 Diff Path Review May foll Sodium 139 Potassium 3.6 Chloride 105 Carbon Dioxide 28.0 Anion Gap 6 BUN 6 L Creatinine 0.78 Estim Creat Clear Calc 69.76 Est GFR (MDRD) Af Amer 101 Est GFR (MDRD) Non-Af 83 BUN/Creatinine Ratio 7.7 L Glucose 80 Calcium 9.1 Troponin I < 0.015 - Medical Decision Making Patient presenting with concern for chills, cough, mild shortness of breath and elevated blood pressure. EKG performed on arrival shows a sinus rhythm at 94 bpm without signs of ischemic changes. EKG shows sinus rhythm at 94 bpm without signs of ischemic changes. Patient's blood pressure was shown to be elevated on a couple of different readings and she was initially given labetalol with fairly significant improvement 176/136-146/110. Chest x-ray as interpreted by myself shows faint right upper lobe infiltrate. Patient's lab work shows a CBC with white blood cell count of 3.2 hemoglobin 13.2, absolutely lymphopenic. GFR and electrolytes are normal. Patient's COVID-19 test is positive. She was counseled on quarantine and return precautions. Discussed patient with Dr. Burrell who recommended increasing her Coreg to 6.25 mg p.o. twice daily. Losartan will stay the same at 50 mg daily. Patient is provided prescriptions. Impression: 1. Hypertension established [id number] 2. COVID-19 ED Disposition - Plan for ED Patient: Disposition: Home or Assisted Living Instructions: ED Hypertension, Established, ED Pneumonia (Adult), Coronavirus Disease 2019 (COVID-19): Caring for Yourself or Others Prescriptions: Doxycycline 100 mg PO DAILY #10 cap Prescription Printed Referrals: Tamy Garcias MD [Primary Care Provider] -
--- NOTE | 2020-09-22 15:03 | EKG12_ITS ---
Test Reason : Blood Pressure : / mmHG Vent. Rate : 094 BPM Atrial Rate : 094 BPM P-R Int : 156 ms QRS Dur : 084 ms QT Int : 354 ms P-R-T Axes : 015 003 004 degrees QTc Int : 442 ms Normal sinus rhythm Minimal voltage criteria for LVH, may be normal variant Borderline ECG Confirmed by ROSANNA BRADFORD, DIANE ([id number]), metropolitan editor MOLINA HURT ([id number]) on 09/23/2020 10:45:47 AM Referred By: ADAMARIS Confirmed By:DIANE MARTE MD
--- NOTE | 2020-09-22 15:35 | RAD_ITS ---
STUDY: X-RAY CHEST REASON FOR EXAM: Female, 50 years old. shortness of breath TECHNIQUE: Single AP portable view of the chest. COMPARISON: 08/04/2020 FINDINGS: Focal alveolar opacity in the mid right lung consistent with right upper lobe pneumonia. There is no demonstrated pleural abnormality. Normal size heart. Normal mediastinum and dany. Normal visualized pulmonary arteries. Normal visualized aortic arch and descending thoracic aorta. Normal visualized thoracic spine. Normal visualized ribs, clavicles, and shoulders. There is no demonstrated abnormality of the visualized soft tissue structures of the upper abdomen. RAD/Chest 1 View (Portable) IMPRESSION: Focal right upper lobe pneumonia. Electronically Signed: Gustavo Singh MD at 16:03 EST Tel , Service support ,
[2020-09-22 15:52] LABS: Absolute Lymphocyte Count 0.49 X10^3/uL (0.83-4.51); Absolute Neutrophil Count 2.2 X10^3/uL (2.0-7.7); Basophil# 0.01 X10^3/uL; Basophil% 0.3 % (0-1); Differential Indicated SCAN CRITERIA MET; Eosinophil# 0.04 X10^3/uL; Eosinophils% 1.3 % (0-5); Hematocrit 37.2 % (37-47); Hemoglobin 13.2 g/dL (12.0-15.0); Lymphocyte # 0.49 X10^3/ul (4.0); Lymphocyte % 15.5 % (19-41); Mean Corp Hgb Conc 35.5 g/dL (32-36); Mean Corpuscular Hgb 30.9 pg (27.0-32.0); Mean Corpuscular Volume 87.1 fL (81-99); Mean Platelet Vol. 9.6 fl (6.2-12.0); Monocyte# 0.39 X10^3/uL; Monocyte% 12.3 % (0-10); NRBC Flagged by Analyzer 0 % (0-5); Neutrophil # 2.22 X10^3/uL (2.7-7.7); Neutrophil % 70.3 % (47-70); POSITIVE DIFFERENTIAL YES; Platelet Count 104 K/mm3 (150-450); RBC Distribution Width CV 15.5 % (11.6-14.6); RBC Distribution Width SD 43.3 fl (35.1-43.9); Red Blood Count 4.27 M/mm3 (4.2-5.4); White Blood Count 3.2 K/mm3 (4.4-11.0)
[2020-09-22 16:12] LABS: Anion Gap 6 (5-15); BUN 6 mg/dL (7-18); BUN/Creat Ratio 7.7 RATIO (10-20); Calcium,Total 9.1 mg/dL (8.5-10.1); Chloride 105 mmol/L (98-107); Creatinine, Serum 0.78 mg/dL (0.55-1.02); EST Glomerular Filtration Rate 83 mL/min (>60); Est Glom Filt Rate - Afr Amer 101 mL/min (>60); Estimated Creatinine Clearance 69.76 ml/min; Glucose 80 mg/dL (74-106); Potassium 3.6 mmol/L (3.5-5.1); Sodium Level 139 mmol/L (136-145)
[2020-09-22 16:44] VITALS: BP 173/136; PULSE 89; RESP 18; O2SAT 94
[2020-09-22] MEDS: Labetalol 100 MG/20 ML Vial 20 MG IV ×2 (16:44→18:11)
[2020-09-22 16:45] VITALS: BP 146/110; PULSE 88; RESP 15; O2SAT 94
--- NOTE | 2020-09-22 17:31 | NURSING ---
[address] ARCE [address] [facility] [address] [employer] [id number] ARCE THROUGH THE OFFICE
--- NOTE | 2020-09-22 17:53 | NURSING ---
DR ARCE CALLED BACK.
[2020-09-22 18:10] VITALS: BP 164/111; PULSE 85; RESP 20; O2SAT 95
[2020-09-22 18:27] VITALS: BP 153/101; PULSE 88; RESP 20; TEMP 37.2; O2SAT 94
[2020-09-23 13:18] LABS: Pathologist Review Reviewed
== END 2020-09-22 18:49 | disposition home or self-care (01) ==
PROVIDERS: Emergency Provider Student in an Organized Health Care Education/Training Program; PCP Internal Medicine
DX: U07.1 COVID-19 (principal); I10 Essential (primary) hypertension; J45.909 Unspecified asthma, uncomplicated; F32.9 Major depressive disorder, single episode, unspecified; F41.9 Anxiety disorder, unspecified; Z79.899 Other long term (current) drug therapy; E78.5 Hyperlipidemia, unspecified; Z92.21 Personal history of antineoplastic chemotherapy; Z87.891 Personal history of nicotine dependence
CPT/HCPCS: 71045; 80048; 84484; 85025; 87426; 87635; 93005; 96374; 96375; 99283; U0003

== ENCOUNTER → 2020-11-27 13:09 | Outpatient (CLI) | payer MEDICAID, SELFPAY ==
[2020-09-17 10:42] VITALS: BMI 42.6
--- NOTE | 2020-11-27 13:50 | ECHOD_ITS ---
Reason For Study: DYSPNEA/SOB Procedure This was a 2D Doppler, Color Flow transthoracic echocardiogram. Exam performed in department. Left Ventricle Normal LV size. The estimated ejection fraction is 60 %. No evidence for diastolic dysfunction. No regional wall motion abnormalities noted. Right Ventricle Normal right ventricle. Normal systolic function. Atria Normal left atrium. Normal right atrium. No doppler evidence for ASD. Mitral Valve There is no mitral valve stenosis. No mitral valve insufficiency. Tricuspid Valve There is no tricuspid stenosis. Trivial tricuspid valve insufficiency. Aortic Valve Trisinus/trileaflet aortic valve. There is no aortic stenosis. No aortic valve insufficiency. Pulmonic Valve There is no pulmonic valvular stenosis. No pulmonic valve insufficiency. Great Vessels Normal aortic root. Pericardium/Pleural No pericardial effusion. MMode/2D Measurements & Calculations LVIDd: 4.8 cm IVSd: 1.0 cm Ao root diam: 3.3 cm LVIDs: 3.1 cm LVPWd: 1.2 cm RVDd: 3.2 cm FS: 36.0 % LAV(MOD-bp): 58.6 ml LA A4 area: 18.9 cm2 LA dimension(2D): 4.1 cm LAV(MOD-bp) Indexed: 28.8 ml/m2 LAV(MOD-sp2): 58.2 ml LAV(MOD-sp4): 58.7 ml RA A4 area: 13.7 cm2 Time Measurements MV dec time: 0.28 sec Doppler Measurements & Calculations MV E max gulshan: 60.7 cm/sec Lat Peak E' Gulshan: 5.6 cm/sec Med Peak E' Gulshan: 6.5 cm/sec MV A max gulshan: 87.7 cm/sec E/E' lat: 10.8 E/E' med: 9.4 MV E/A: 0.69 Ao V2 max: 164.8 cm/sec LV V1 max: 68.5 cm/sec PA V2 max: 104.8 cm/sec Ao max P.9 mmHg LV V1 max P.3 mmHg Ao V2 mean: 120.3 cm/sec LV V1 mean P.8 mmHg Ao mean P.1 mmHg LV V1 mean: 64.0 cm/sec Ao V2 VTI: 30.6 cm LV V1 VTI: 19.0 cm ECHO/Echo Complete Interpretation Summary The estimated ejection fraction is 60 %. No evidence for diastolic dysfunction. Ordering Physician: Indra Amado Referring Physician: Tamy Garcias Performed By: Radha Gilmore, RDCS, RVT
--- NOTE | 2020-11-28 14:04 | PFTCOMP ---
INTRODUCTION: The patient is a 50-year-old female that presents for pulmonary function studies secondary to a diagnosis of dyspnea. Respiratory therapy reports good patient effort. Bronchodilators were used during testing. INTERPRETATION: Forced expiration spirometry demonstrates no evidence of a large airways obstructive ventilatory defect. There was no significant response to aerosolized bronchodilators. Spirograms are of good quality and plateau normally. The respiratory flow volume loop is normal. Body plethysmography was performed and reveals lung volumes to be within normal limits. Diffusing capacity by single breath CO is also within normal limits. IMPRESSION: Grossly normal pulmonary function studies.
== END ==
PROVIDERS: PCP Internal Medicine; Referring Provider Internal Medicine Critical Care Medicine; Visit Provider Internal Medicine Critical Care Medicine
DX: R06.00 Dyspnea, unspecified (principal); R06.02 Shortness of breath
CPT/HCPCS: 93306; 94060; 94726; 94729

== ENCOUNTER 2021-01-19 13:21 | Outpatient (RCR) | payer MEDICAID, SELFPAY | END 2021-01-19 23:59 | disposition home or self-care (01) | LOC: NS 13:21 | PROVIDERS: PCP Internal Medicine; Visit Provider Internal Medicine | DX: Z71.3 Dietary counseling and surveillance (principal); E66.01 Morbid (severe) obesity due to excess calories; Z68.41 Body mass index [BMI] 40.0-44.9, adult | CPT/HCPCS: 97802 ==

== ENCOUNTER 2022-04-08 14:22 | Emergency (ER) | payer MEDICAID, SELFPAY ==
[2022-04-08 14:23] VITALS: BP 139/100; PULSE 85; RESP 16; TEMP 35.9; O2SAT 96; BMI 42.0
--- NOTE | 2022-04-08 15:44 | ED.VIS.BACK ---
HPI History of Present Illness Chief Complaint: Back Informant: patient Onset/Context/Timing Onset: Today Context: Sudden Onset Injury: bending Timing: Continuous Quality: - (Cramping) Location: Lumbar Worsened by: improves with - (Prolonged sitting) Relieved by: Medications (Tylenol arthritis) Associated Symptoms Associated Symptoms: Negative for Numbness, Tingling, Radiation to Right Leg, Radiation to Left Leg, Fever, Abdominal Pain, Dysuria, Unable to Ambulate, Unable to Transfer, Urinary Retention, Urinary Incontinence, Constipation or Fecal Incontinence Narrative Narrative: Presents with low back pain that began today. Patient states she was bent over and felt pain in her low back. Patient states it is worse on the right. Patient denies any radiation of the pain. Patient states it is worse with sitting for prolonged periods of time. Patient states she has been taking Tylenol arthritis which has been helping some. Patient admits to some tingling in her right upper extremity due to her neuropathy but denies any paresthesias or weakness in her lower extremities. Patient denies any radiation of the pain. Patient denies any bowel or bladder changes. Patient denies any saddle anesthesia. Patient states she contacted her primary care physician who was unable to see her today. Patient states she was then directed to come to the emergency department. [facility] Medical History Acute asthma exacerbation Anxiety and depression Asthma Breast cancer Dyspnea Hyperlipidemia Hypertension Hypoxemia Lung nodule Pneumonia Seasonal allergies Sepsis Home Medications bupropion HCl 150 mg tablet,12 hr sustained-release 150 mg PO BID 06/05/13 [History Last Taken Unknown] cetirizine 10 mg tablet 10 mg PO DAILY 06/05/13 [History Last Taken Unknown] sertraline 100 mg tablet 200 mg PO QHS 06/05/13 [History Last Taken Unknown] simvastatin 40 mg tablet 40 mg PO QHS 06/05/13 [History Last Taken Unknown] gabapentin 300 mg capsule 300 mg PO 5X/DAY 05/26/15 [History Last Taken 02/24/17 07:00] cholecalciferol (vitamin D3) 25 mcg (1,000 unit) tablet 5,000 unit PO DAILY 02/18/20 [History Last Taken Unknown] fluticasone propionate 50 mcg/actuation nasal spray,suspension 2 spray NASAL BID PRN Allergies 02/18/20 [History Last Taken Unknown] losartan 50 mg tablet 100 mg PO DAILY 02/18/20 [History Last Taken Unknown] sucralfate 100 mg/mL oral suspension 1 gm PO 4X/DAY #560 mL 02/18/20 [Rx Last Taken Unknown] alprazolam 1 mg tablet 1 mg PO DAILY PRN Anxiety 09/22/20 [History Last Taken Unknown] carvedilol 6.25 mg tablet 6.25 mg PO BID #60 tabs 09/22/20 [Rx Last Taken Unknown] naproxen 500 mg tablet 500 mg PO BID PRN #20 tabs 04/08/22 [Rx Last Taken Unknown] omeprazole 40 mg capsule,delayed release 40 mg PO BID 04/08/22 [History Last Taken Unknown] Allergy/AdvReac Type Severity Reaction Status Date / Time clarithromycin [From Biaxin] Allergy Unknown Verified 04/08/22 14:25 Penicillins Allergy Hives Verified 04/08/22 14:25 Sulfa (Sulfonamide Allergy Hives Verified 04/08/22 14:25 Antibiotics) sumatriptan [From Imitrex] Allergy Unknown Verified 04/08/22 14:25 sumatriptan succinate Allergy Unknown Verified 04/08/22 14:25 [From Imitrex] COUGH MED W/CODEINE Allergy Unknown Uncoded 09/22/20 14:47 Family History Mother CVA (cerebral vascular accident) Myocardial infarction Sister Cancer Breast Lung Brain Sister Cancer Breast Surgical History H/O breast biopsy H/O tubal ligation Social History Smoking Status: Former smoker quit date: 07/25/00 ROS ROS ED Constitutional Constitutional ED: Denies chills or fever(s) Eyes Eyes: Denies blurry vision or change in vision ENT ENT ED: Denies rhinorrhea or sore throat Cardiovascular Cardiovascular: Denies chest pain or palpitations Respiratory/Chest Respiratory/Chest: Denies cough or dyspnea Gastrointestinal Gastrointestinal: Reports nausea; Denies vomiting Genitourinary Genitourinary ED: Denies dysuria or hematuria Musculoskeletal Musculoskeletal: Reports back pain; Denies neck pain Integumentary Denies abscess or rash Neurologic Neurologic: Reports paresthesias RUE; Denies headache(s) or weakness Allergic/Immunologic Allergic/Immunologic ED: Denies mouth swelling or urticaria EXAM Physical Exam Const Vital Signs: 04/08/22 14:23 Temperature 96.6 F L Temperature Source Temporal Pulse Rate 85 Respiratory Rate 16 Blood Pressure 139/100 H Blood Pressure Mean 113 Pulse Ox 96 Oxygen Delivery Method Room Air Positive well nourished, well developed and obese General Appearance ED: well developed and NAD Nutritional Appearance: obese HEENT Reports moist mucous membranes Neck supple and no JVD Back/Spine Back/Spine Narrative: There is tenderness over the lumbar paraspinal muscles. There is minimal midline tenderness. There is no bony crepitance or step-off. There is good range of motion of the lumbar spine. Strength is 5/5 bilaterally in the lower extremities. There are no sensory deficits noted. Deep tendon reflexes are 2+/4 bilaterally in the lower extremities. Straight leg raises were negative bilaterally. Lumbar Spine / Lower Back: straight leg raise negative bilaterally; Negative for ROM limited Extremity normal to inspection and no clubbing, cyanosis or edema General Extremety ED: Negative for tenderness Neuro oriented x3 and no sensory deficits noted Sensorium / Orientation: alert Motor Exam: strength 5/5 throughout Deep Tendon Reflexes: Rt Patellar (L4): 2+, Lt Patellar (L4): 2+, Rt Ankle (S1): 2+ and Lt Ankle (S1): 2+ Deep Tendon Reflexes Back: Rt Patellar (L4): 2+, Lt Patellar (L4): 2+, Rt Ankle (S1): 2+ and Lt Ankle (S1): 2+ MDM MDM MDM Narrative Medical decision making narrative: Patient was advised that this is most likely a muscular strain. Patient was given a dose of Naprosyn here. Patient was given a prescription for Naprosyn. Patient was instructed use ice to the area. Patient was instructed to do stretching exercises. Patient was instructed to follow-up with her primary care physician in 3 to 5 days. Patient understood and was agreeable with the plan. All questions were answered. Discharge Plan Triage Chief Complaint: Back ED Provider: Yeison Hyman Dx/Rx/DC Orders Clinical Impression: Acute myofascial strain of lumbosacral region, Morbid obesity with BMI of 40.0-44.9, adult Instructions: ED Back Sprain/Strain Prescriptions: New naproxen 500 MG tablet 500 mg PO BID PRN Qty: 20 0RF No Action bupropion HCl 150 MG tablet sustained-release 12 hr 150 mg PO BID cetirizine 10 MG tablet 10 mg PO DAILY sertraline 100 MG tablet 200 mg PO QHS simvastatin 40 MG tablet 40 mg PO QHS gabapentin 300 MG capsule 300 mg PO 5X/DAY losartan 50 MG tablet 100 mg PO DAILY fluticasone propionate 50 mcg/actuation spray,suspension 2 spray NASAL BID PRN (Reason: Allergies) cholecalciferol (vitamin D3) 1,000 UNIT tablet 5,000 unit PO DAILY sucralfate 1 GM/10 ML suspension 1 gm PO 4X/DAY Qty: 560 0RF alprazolam 1 MG tablet 1 mg PO DAILY PRN (Reason: Anxiety) carvedilol 6.25 MG tablet 6.25 mg PO BID Qty: 60 0RF omeprazole 40 mg capsule,delayed release(DR/EC) 40 mg PO BID Label Comments: TAKE 1 CAPSULE BY MOUTH TWICE A DAY Primary Care Provider: Tamy Garcias Referrals: Tamy Garcias MD [Primary Care Provider] - 3-5 Days Disposition Disposition: Home, Self Care
== END 2022-04-08 15:59 | disposition home or self-care (01) ==
LOC: ED 15:58
PROVIDERS: Emergency Provider Emergency Medicine; PCP Internal Medicine; Visit Provider Emergency Medicine
DX: S39.012A Strain of muscle, fascia and tendon of lower back, initial encounter (principal); E66.01 Morbid (severe) obesity due to excess calories; E78.5 Hyperlipidemia, unspecified; G62.9 Polyneuropathy, unspecified; I10 Essential (primary) hypertension; K59.00 Constipation, unspecified; F41.9 Anxiety disorder, unspecified; F32.A Depression, unspecified; Z87.891 Personal history of nicotine dependence; Z79.899 Other long term (current) drug therapy; X50.1XXA Overexertion from prolonged static or awkward postures, initial encounter
CPT/HCPCS: 99283

== ENCOUNTER 2023-02-05 12:36 | Emergency (ER) | payer MEDICAID, SELFPAY ==
[2023-02-05 12:37] VITALS: BP 163/86; PULSE 88; RESP 16; TEMP 36.5; O2SAT 95; BMI 43.1
--- NOTE | 2023-02-05 12:55 | CT_ITS ---
INDICATION: Abdominal pain. EXAMINATION: CT ABDOMEN AND PELVIS WITHOUT CONTRAST - CT Abdomen And Pelvis W/O Contrast Injection TECHNIQUE: Helically acquired images were obtained of the abdomen and pelvis without oral or IV contrast. A radiation dose optimization technique was used for this scan. IV Contrast dosage and agent: None. Oral contrast: None. RADIATION DOSAGE (If Supplied By Facility): CTDIvol = ( 22.04 ) mGy, DLP = ( 1123.2 ) mGycm COMPARISON: No prior examinations are available for comparison. FINDINGS: LOWER CHEST: Lung bases are clear. No cardiomegaly or pericardial effusion. LIVER: Hepatic steatosis. Hepatomegaly. No focal mass is seen on this noncontrast examination. GALLBLADDER AND BILIARY TREE: No calcified gallstones. No gallbladder distension or wall edema. No intra- or extrahepatic biliary ductal dilation. PANCREAS: No focal cystic or solid mass. SPLEEN: Splenomegaly. Measures about 16.5 cm in length. ADRENAL GLANDS: 1.7 cm low-density mass in the right adrenal gland could be due to adenoma. Unremarkable left adrenal gland. KIDNEYS AND URETERS: Normal renal size and position. No hydronephrosis. PERITONEUM: No ascites or free air. No other fluid collection. BOWEL: Moderate size hiatal hernia. Normal caliber small bowel loops. No evidence of acute diverticulitis. Questionable small appendicolith without evidence of acute appendicitis. LYMPH NODES: No enlarged mesenteric or retroperitoneal lymph nodes. VESSELS: Aorta is non-dilated. URINARY BLADDER: The urinary bladder is not well distended. REPRODUCTIVE ORGANS: No pelvic masses. ABDOMINAL WALL: Very small umbilical hernia containing fat. BONES: No lytic or blastic abnormality. CT/Abdomen/Pelvis without Cont IMPRESSION: 1. Moderate size hiatal hernia. 2. Hepatosplenomegaly. 3. Hepatic steatosis. 4. Right adrenal mass probably due to adenoma. Follow-up exam in one year with washout study or MRI with contrast is recommended. 5. No focal acute inflammatory process. Electronically Signed: Jose Cadet MD at 14:21 EDT ,
--- NOTE | 2023-02-05 12:56 | ED.VIS.BACK ---
HPI History of Present Illness Chief Complaint: Back Narrative Narrative: 52-year-old female past medical history of remote breast cancer, with medication putting her in early menopause presents with left-sided back pain that began earlier in the week on Tuesday, almost 8 days ago. She felt something in her left flank and low back. She denies any dysuria or hematuria. Yesterday, she states that she turned a certain way and now has increasing pain in her left low back. She also developed a fever, but took antipyretics. She states that she went to the urgent care for evaluation where they performed a COVID test, influenza test, and urinalysis which were all negative for infection. She denies any cough or other symptoms, but states that she does not know where the fever came from and why her low back hurts her. She denies any loss of bowel or bladder, or any other symptoms. [facility] Medical History Acute asthma exacerbation Anxiety and depression Asthma Breast cancer Dyspnea Hyperlipidemia Hypertension Hypoxemia Lung nodule Pneumonia Seasonal allergies Sepsis Home Medications bupropion HCl 150 mg tablet,12 hr sustained-release 150 mg PO BID 06/05/13 [History Last Taken Unknown] cetirizine 10 mg tablet 10 mg PO DAILY 06/05/13 [History Last Taken Unknown] sertraline 100 mg tablet 200 mg PO QHS 06/05/13 [History Last Taken Unknown] simvastatin 40 mg tablet 40 mg PO QHS 06/05/13 [History Last Taken Unknown] gabapentin 300 mg capsule 300 mg PO 5X/DAY 05/26/15 [History Last Taken 02/24/17 07:00] cholecalciferol (vitamin D3) 25 mcg (1,000 unit) tablet 5,000 unit PO DAILY 02/18/20 [History Last Taken Unknown] fluticasone propionate 50 mcg/actuation nasal spray,suspension 2 spray NASAL BID PRN Allergies 02/18/20 [History Last Taken Unknown] losartan 50 mg tablet 100 mg PO DAILY 02/18/20 [History Last Taken Unknown] sucralfate 100 mg/mL oral suspension 1 g (10 mL) PO 4X/DAY #560 mL 02/18/20 [Rx Last Taken Unknown] alprazolam 1 mg tablet 1 mg PO DAILY PRN Anxiety 09/22/20 [History Last Taken Unknown] carvedilol 6.25 mg tablet 6.25 mg PO BID #60 tabs 09/22/20 [Rx Last Taken Unknown] naproxen 500 mg tablet 500 mg PO BID PRN #20 tabs 04/08/22 [Rx Last Taken Unknown] omeprazole 40 mg capsule,delayed release 40 mg PO BID 04/08/22 [History Last Taken Unknown] doxycycline hyclate 100 mg tablet 100 mg PO BID #20 tabs 08/03/22 [Rx Last Taken Unknown] cephalexin 500 mg capsule 500 mg PO Q12 #14 CAPSULES 02/05/23 [Rx Last Taken Unknown] Allergy/AdvReac Type Severity Reaction Status Date / Time clarithromycin [From Biaxin] Allergy Unknown Verified 02/05/23 12:40 Penicillins Allergy Hives Verified 02/05/23 12:40 Sulfa (Sulfonamide Allergy Hives Verified 02/05/23 12:40 Antibiotics) sumatriptan [From Imitrex] Allergy Unknown Verified 02/05/23 12:40 sumatriptan succinate Allergy Unknown Verified 02/05/23 12:40 [From Imitrex] COUGH MED W/CODEINE Allergy Unknown Uncoded 08/03/22 12:50 Family History Mother CVA (cerebral vascular accident) Myocardial infarction Sister Cancer Breast Lung Brain Sister Cancer Breast Surgical History H/O breast biopsy H/O tubal ligation Social History Smoking Status: Former smoker quit date: 07/25/00 ROS ROS ED ROS Narrative Constitutional: Positive fever, no chills. HEENT: No sore throat. No neck pain. No loss of vision. No rhinorrhea. Cardiovascular: No chest pain. No palpitations. No pedal edema. Respiratory: No cough, no shortness of breath. Abdominal: No abdominal pain. No nausea. No vomiting. Genitourinary: No dysuria. No hematuria. Positive left flank pain Musculoskeletal: No myalgias. No arthralgias. Left low back pain. Nonradiating. Sometimes worse with certain movements. Neurologic: No headaches. No dizziness. No lightheadedness. Skin: No rash. No change in color. Psychiatric: No depression. No anxiety. EXAM Physical Exam Narrative Exam Narrative: Afebrile. Vital signs noted. Nontoxic-appearing. HEENT: Normocephalic. Atraumatic. PERRL, EOMI. Neck soft and supple. No point tenderness or step off. Cardiovascular: Regular rate and rhythm. No murmurs, rubs, or gallops appreciated. Respiratory: No tachypnea. Lungs clear to auscultation bilaterally. Gastrointestinal: Abdomen soft, nontender, with normoactive bowel sounds. No rebound or guarding. Mild left CVA tenderness to percussion. Tenderness to to palpation and left paraspinal musculature. No vertebral point tenderness or bony step-off. Neurological: Awake. Alert. Nonfocal, nonlateralizing. Skin: No rash. Normal color. No pallor. Musculoskeletal: No pedal edema. Full range of motion extremities. Const Vital Signs: 02/05/23 12:37 02/05/23 12:55 Temperature 97.7 F L Temperature Source Temporal Pulse Rate 88 Respiratory Rate 16 Respiratory Effort Normal Non-Labored Respiratory Pattern Normal Blood Pressure 163/86 H Blood Pressure Mean 111 Pulse Ox 95 Oxygen Delivery Method Room Air MDM MDM MDM Narrative Medical decision making narrative: Patient is afebrile here. I will recheck her urinalysis. I will image her to look for any kidney stone or signs of pyelonephritis. Basic labs will also be obtained. She had negative COVID swab. Although she is not necessarily coughing or short of breath, will obtain a chest x-ray to rule out atypical pneumonia or consolidation. I reviewed the patient's laboratory work, she has normal white count of 5.8, hemoglobin slightly anemic at 11.7 which think is nonspecific, platelet count normal at 167. Her CMP shows normal sodium of 139, normal potassium of 4.2, chloride normal at 106, BUN normal at 15 with slightly elevated creatinine of 1.14. She has normal glucose of 103 and a normal anion gap of 5. Her urinalysis shows 25-50 WBCs but negative nitrites. I do feel that she may have more of a cystitis. She states she has taken cephalexin in the past. She was given her first dose here and a prescription written for the next 7 days to take twice a day. In review of her CT of the abdomen and pelvis radiology report, there is no acute inflammatory process, no kidney stone or ureteral stone. They did note a right adrenal mass which could be an adenoma and suggest outpatient CT scan in 1 year. She was told of this incidental finding and recommended follow-up with her primary care provider. At this point in time, I do feel she can be discharged safely home with follow-up. She will continue any antipyretics as needed and complete her course of antibiotics for her urinary tract infection/cystitis. I do not feel she requires observation or admission. Return instructions to the emergency department were reviewed. Disposition is discharged home in stable condition. History & Record Review Discussion w/independent historian: Patient Additional record(s) reviewed:: Prior ED visit Lab Data Attestation: I reviewed the patient's lab results. Labs: Laboratory Results - last 24 hr 02/05/23 13:15 WBC 5.8 RBC 4.43 Hgb 11.7 L Hct 36.9 L MCV 83.3 MCH 26.4 L MCHC 31.7 L RDW Std Deviation 43.5 RDW Coeff of Ho 14.2 Plt Count 167 MPV 9.7 Immature Gran % (Auto) 0.200 Neut % (Auto) 60.8 Lymph % (Auto) 29.9 [place] % (Auto) 7.4 Eos % (Auto) 1.4 Baso % (Auto) 0.3 Absolute Neuts (auto) 3.5 Absolute Lymphs (auto) 1.74 Nucleated RBC % 0 Sodium 139 Potassium 4.2 Chloride 106 Carbon Dioxide 28.0 Anion Gap 5 BUN 15 Creatinine 1.14 H Estim Creat Clear Calc 46.69 Est GFR (MDRD) Af Amer 65 Est GFR (MDRD) Non-Af 53 L BUN/Creatinine Ratio 13.2 Glucose 103 Calcium 8.9 Total Bilirubin 0.50 AST 14 L ALT 28 Alkaline Phosphatase 76 Total Protein 7.1 Albumin 3.4 Globulin 3.7 Albumin/Globulin Ratio 0.9 Urine Color Yellow Urine Clarity Sl. Cloudy Urine pH 5.0 Ur Specific [place] 1.015 Urine Protein 30 H Urine Glucose (UA) Normal Urine Ketones 5 H Urine Occult Blood Negative Urine Nitrite Negative Urine Bilirubin Negative Urine Urobilinogen 1 H Ur Leukocyte Esterase 500 H Urine RBC 0 SEEN Urine WBC 25-50 SEEN Ur Squamous Epith Cells 0-5 SEEN Urine Bacteria 1+ Urine Mucus 0 SEEN Radiography Diagnostic Testing: Clinical Impression(s) from Imaging Studies Abdomen/Pelvis CT 02/05/23 12:55 IMPRESSION: 1. Moderate size hiatal hernia. 2. Hepatosplenomegaly. 3. Hepatic steatosis. 4. Right adrenal mass probably due to adenoma. Follow-up exam in one year with washout study or MRI with contrast is recommended. 5. No focal acute inflammatory process. Electronically Signed: Jose Cadet MD at 14:21 EDT , Chest X-Ray 02/05/23 13:19 IMPRESSION: No radiographic evidence of acute cardiopulmonary disease. Electronically Signed: Jose Cadet MD at 13:38 EDT , Discharge Plan Triage Chief Complaint: Back Other Complaint: Fever ED Provider: Will Tobar Dx/Rx/DC Orders Clinical Impression: UTI (urinary tract infection), Abnormal CT scan Prescriptions: New cephalexin 500 mg capsule 500 mg PO Q12 Qty: 14 0RF No Action doxycycline hyclate 100 mg tablet 100 mg PO BID Qty: 20 0RF bupropion HCl 150 MG tablet sustained-release 12 hr 150 mg PO BID cetirizine 10 MG tablet 10 mg PO DAILY sertraline 100 MG tablet 200 mg PO QHS simvastatin 40 MG tablet 40 mg PO QHS gabapentin 300 MG capsule 300 mg PO 5X/DAY losartan 50 MG tablet 100 mg PO DAILY fluticasone propionate 50 mcg/actuation spray,suspension 2 spray NASAL BID PRN (Reason: Allergies) cholecalciferol (vitamin D3) 1,000 UNIT tablet 5,000 unit PO DAILY sucralfate 1 GM/10 ML suspension 1 g PO 4X/DAY Qty: 560 0RF alprazolam 1 MG tablet 1 mg PO DAILY PRN (Reason: Anxiety) carvedilol 6.25 MG tablet 6.25 mg PO BID Qty: 60 0RF omeprazole 40 mg capsule,delayed release(DR/EC) 40 mg PO BID Patient Comments: TAKE 1 CAPSULE BY MOUTH TWICE A DAY naproxen 500 MG tablet 500 mg PO BID PRN Qty: 20 0RF Primary Care Provider: Tamy Garcias Referrals: Tamy Garcias MD [Primary Care Provider] - As soon as possible Activity Restrictions/Additional Instructions: Take all the antibiotics as directed. You had an abnormal finding on your CT scan, but it appears stable. Follow-up with your primary care physician regarding repeat CT scan or other outpatient testing. Disposition Disposition: Home, Self Care
--- NOTE | 2023-02-05 13:19 | RAD_ITS ---
INDICATION: fever EXAMINATION/TECHNIQUE: X-RAY - XR Chest 1 View COMPARISON: 09/22/2020. FINDINGS: LINES/DEVICES: None. LUNGS: No consolidation, edema or effusion. No pneumothorax. MEDIASTINUM AND CARDIOVASCULAR STRUCTURES: Cardiac silhouette not enlarged. Central airways and mediastinal contour are unremarkable. BONES AND SOFT TISSUES: Unremarkable. RAD/Chest 1 View (Portable) IMPRESSION: No radiographic evidence of acute cardiopulmonary disease. Electronically Signed: Jose Cadet MD at 13:38 EDT ,
[2023-02-05] MEDS: 0.9% Normal Saline 1,000 ML 1000 ML IV (13:22)
[2023-02-05] MEDS: Ketorolac 30 MG/ML Syringe IV (13:23)
[2023-02-05 13:24] LABS: Mucous, Urine 0 SEEN /hpf (<or=2+); Red Blood Cells-Urine 0 SEEN /hpf (0-5)
[2023-02-05 13:30] LABS: Absolute Lymphocyte Count 1.74 X10^3/uL (0.83-4.51); Absolute Neutrophil Count 3.5 X10^3/uL (2.0-7.7); Basophil# 0.02 X10^3/uL; Basophil% 0.3 % (0-1); Color, Urine Yellow (Yellow); Eosinophil# 0.08 X10^3/uL; Eosinophils% 1.4 % (0-5); Glucose, Dipstick Normal (Normal); Hematocrit 36.9 % (37-47); Hemoglobin 11.7 g/dL (12.0-15.0); Ketone-Dipstick 5 mg/dl (Negative); Leukocyte Esterase-Dipstick 500 /ul (Negative); Lymphocyte # 1.74 X10^3/ul (0.83-4.51); Lymphocyte % 29.9 % (19-41); Mean Corp Hgb Conc 31.7 g/dL (32-36); Mean Corpuscular Hgb 26.4 pg (27.0-32.0); Mean Corpuscular Volume 83.3 fL (81-99); Mean Platelet Vol. 9.7 fl (6.2-12.0); Monocyte# 0.43 X10^3/uL; Monocyte% 7.4 % (0-10); NRBC Flagged by Analyzer 0 % (0-5); Neutrophil # 3.53 X10^3/uL (2.7-7.7); Neutrophil % 60.8 % (47-70); Nitrite-Dipstick Negative (Negative); Occult Blood-Urine Negative /ul (Negative); Platelet Count 167 K/mm3 (150-450); Protein-Dipstick 30 mg/dl (Negative); RBC Distribution Width CV 14.2 % (11.6-14.6); RBC Distribution Width SD 43.5 fl (35.1-43.9); Red Blood Count 4.43 M/mm3 (4.2-5.4); Specific Gravity, Urine 1.015 (1.002-1.030); Urine Bilirubin Dipstick Negative (Negative); Urine Clarity Sl. Cloudy (Clear); Urine Urobilinogen 1 mg/dl (Normal); White Blood Count 5.8 K/mm3 (4.4-11.0)
[2023-02-05 13:41] LABS: ALB/GLOB Ratio 0.9 RATIO (0.9-2.4); AST(SGOT) 14 U/L (15-37); Alanine Aminotransfer ALT/SGPT 28 U/L (13-56); Albumin, Serum 3.4 g/dL (3.2-5.0); Alkaline Phosphatase 76 U/L (45-117); Anion Gap 5 (5-15); BUN 15 mg/dL (7-18); BUN/Creat Ratio 13.2 RATIO (10-20); Calcium,Total 8.9 mg/dL (8.5-10.1); Chloride 106 mmol/L (98-107); Creatinine, Serum 1.14 mg/dL (0.55-1.02); EST Glomerular Filtration Rate 53 mL/min (>60); Est Glom Filt Rate - Afr Amer 65 mL/min (>60); Estimated Creatinine Clearance 46.69 ml/min; Globulin 3.7 g/dL (2.2-4.2); Glucose 103 mg/dL (74-106); Potassium 4.2 mmol/L (3.5-5.1); Protein, Total 7.1 g/dL (6.4-8.2); Sodium Level 139 mmol/L (136-145)
[2023-02-05 13:55] LABS: White Blood Cells 25-50 SEEN /hpf (0-5)
[2023-02-05 13:56] LABS: Bacteria 1+ /hpf (None Seen); Squamous Epithelial Cells - UA 0-5 SEEN /hpf (5-10)
[2023-02-05 14:37] VITALS: RESP 16
[2023-02-05] MEDS: Cephalexin 250 MG Capsule 500 MG PO (14:43)
== END 2023-02-05 14:49 | disposition home or self-care (01) ==
PROVIDERS: Emergency Provider Emergency Medicine; PCP Internal Medicine; Visit Provider Emergency Medicine
DX: N39.0 Urinary tract infection, site not specified (principal); E27.9 Disorder of adrenal gland, unspecified; I10 Essential (primary) hypertension; E78.5 Hyperlipidemia, unspecified; Z79.899 Other long term (current) drug therapy; Z87.891 Personal history of nicotine dependence; Z85.3 Personal history of malignant neoplasm of breast
CPT/HCPCS: 71045; 74176; 80053; 81001; 85025; 96361; 96374; 99284; J7030; A4216

== ENCOUNTER → 2024-07-11 | Outpatient (CLI) | payer MEDICAID, SELFPAY ==
--- NOTE | 2024-07-11 12:14 | US_ITS ---
STUDY: ULTRASOUND BREAST - RIGHT REASON FOR EXAM: Female, 54 years old. Abnormal screening mammogram. TECHNIQUE: Axial and longitudinal images of the RIGHT breast were performed with a high resolution ultrasound transducer. # OF IMAGES: 109 COMPARISON: None. FINDINGS: RIGHT Breast: The lateral mid and inferior aspects of the right breast was examined with ultrasound. There is a 1.4 cm x 1.6 cm x 0.7 cm complex solid and cystic nodule at the 7:00 position of the breast at 3 cm from the nipple. This corresponds to the palpable lump. Biopsy recommended. There is also evidence of a 6 mm x 6 mm x 4 mm cyst at the 7:00 position of the breast at 3 cm from the nipple. IMPRESSION: The palpable lump corresponds to a 1.4 cm x 1.6 x 0.7 cm complex solid and cystic nodule at the 7:00 position of the breast at 3 cm from nipple. Biopsy recommended. ASSESSMENT CATEGORY: BIRADS Category 4: Suspicious - Biopsy Should Be Considered. A letter regarding these results will be sent to the patient by the facility within 30 days. Electronically Signed: Aftab Rodriguez MD at 10:59 EST , STUDY: ULTRASOUND BREAST - LEFT REASON FOR EXAM: Female, 54 years old. Abnormal screening mammogram. TECHNIQUE: Axial and longitudinal images of the LEFT breast were performed with a high resolution ultrasound transducer. # OF IMAGES: 109 COMPARISON: None. FINDINGS: LEFT Breast: The medial half of the left breast was examined with ultrasound. No sonographic abnormality is seen. US/Breast Limited Unilateral IMPRESSION: No sonographic abnormality is seen. ASSESSMENT CATEGORY: BIRADS Category 1: Negative. A letter regarding these results will be sent to the patient by the facility within 30 days. Electronically Signed: Aftab Rodriguez MD at 10:59 EST ,
== END | disposition home or self-care (01) ==
LOC: OPBI 12:10
PROVIDERS: PCP Internal Medicine
DX: N63.13 Unspecified lump in the right breast, lower outer quadrant (principal); N63.24 Unspecified lump in the left breast, lower inner quadrant; Z85.3 Personal history of malignant neoplasm of breast
CPT/HCPCS: 76642

== ENCOUNTER 2025-05-22 10:56 | Emergency (ER) | payer MEDICAID, SELFPAY ==
[2025-05-22 10:57] VITALS: BP 136/112; PULSE 113; RESP 18; TEMP 36.7; O2SAT 98; BMI 44.6
[2025-05-22 11:00] VITALS: BP 136/112; PULSE 113; RESP 18; TEMP 36.7; O2SAT 98
--- NOTE | 2025-05-22 11:39 | VDLE_ITS ---
Reason For Study VL/Venous Duplex US, Unilateral
--- NOTE | 2025-05-22 12:06 | ED.VIS.LOWEX ---
HPI History of Present Illness Chief Complaint: Lower Extremity Injury Informant: patient Narrative Narrative: Patient is a 55-year-old female with a history of varicose veins, fibromyalgia, and severe arthritis, presenting with erythema and pain in the left lower extremity. - Reports a longstanding varicose vein in the left leg, present for over 20 years since childbirth, which occasionally becomes inflamed. - Noted increased inflammation and pain in the varicose vein area for the past 2 days, with today being the third day. - Describes the pain as more severe than previous episodes, with erythema beginning yesterday. - Initially noted warmth in the area, attributing it to being outside; currently, the area is not warm. - Has been elevating the leg and applying ice packs for relief. - Denies chest pain, dyspnea, syncope, or fever. - Reports feeling exhausted, attributing it to fibromyalgia and recent grief over her sister's passing. - Recent medical history includes colonoscopy and endoscopy on the at [facility], after which she felt unwell. [facility] Medical History Osteoarthritis of left knee Left knee pain Breast cancer Dyspnea Lung nodule Sepsis Acute asthma exacerbation Hypoxemia Pneumonia Hyperlipidemia Hypertension Seasonal allergies Asthma Anxiety and depression Home Medications ?Medication ?Instructions ?Recorded ?Last Taken ?Type cetirizine 10 mg tablet 10 mg PO DAILY 06/05/13 Unknown History sertraline 100 mg tablet 200 mg PO QHS 06/05/13 Unknown History simvastatin 40 mg tablet 40 mg PO QHS 06/05/13 Unknown History gabapentin 300 mg capsule 300 mg PO 5X/DAY 05/26/15 02/24/17 07:00 History cholecalciferol (vitamin D3) 25 5,000 unit PO DAILY 02/18/20 Unknown History mcg (1,000 unit) tablet fluticasone propionate 50 2 spray NASAL BID PRN Allergies 02/18/20 Unknown History mcg/actuation nasal spray,suspension losartan 50 mg tablet 100 mg PO DAILY 02/18/20 Unknown History alprazolam 1 mg tablet 1 mg PO DAILY PRN Anxiety 09/22/20 Unknown History carvedilol 6.25 mg tablet 6.25 mg PO BID #60 tabs 09/22/20 Unknown Rx omeprazole 40 mg capsule,delayed 40 mg PO BID 04/08/22 Unknown History release acetaminophen 650 mg 650 mg PO Q12H 01/05/24 Unknown History tablet,extended release (Tylenol Arthritis Pain) albuterol sulfate 90 mcg/actuation inhalation 01/05/24 Unknown History aerosol inhaler ascorbic acid (vitamin C) 500 mg PO 01/05/24 Unknown History tablet (Vitamin C With Rajni Hips) [id number] 333 mg-133 1 tab PO BID 01/05/24 Unknown History mg-5 mg tablet guaifenesin 600 mg tablet, mg PO 01/05/24 Unknown History extended release 12 hr (Mucus Relief ER) ondansetron HCl 4 mg tablet 4 mg PO Q8H 01/05/24 Unknown History spironolactone 25 mg tablet 25 mg PO QDAY 01/05/24 Unknown History Allergy/AdvReac Type Severity Reaction Status Date / Time clarithromycin (From Biaxin) Allergy Unknown Verified 05/22/25 11:00 Penicillins Allergy Hives Verified 05/22/25 11:00 Sulfa (Sulfonamide Allergy Hives Verified 05/22/25 11:00 Antibiotics) sumatriptan (From Imitrex) Allergy Unknown Verified 05/22/25 11:00 sumatriptan succinate (From Allergy Unknown Verified 05/22/25 11:00 Imitrex) Family History Mother CVA (cerebral vascular accident) Myocardial infarction Sister Cancer Breast Lung Brain Sister Cancer Breast Surgical History H/O breast biopsy H/O tubal ligation Social History Smoking Status: Former smoker quit date: 07/25/00 alcohol intake: current alcohol intake frequency: holidays/special occasions only ROS ROS ED Constitutional Constitutional ED: Denies chills or fever(s) Musculoskeletal Musculoskeletal: Reports extremity pain; Denies neck pain Integumentary Denies Abrasions, rash or wounds Neurologic Neurologic: Denies paresthesias or weakness EXAM Physical Exam Const Vital Signs: 05/22/25 10:57 05/22/25 11:00 05/22/25 12:14 Temperature 98.1 F 98.1 F 98.1 F Temperature Source Oral Oral Pulse Rate 113 H 113 H 113 H Respiratory Rate 18 18 18 Blood Pressure 136/112 H 136/112 H 136/112 H Blood Pressure Mean 120 120 120 Pulse Ox 98 98 98 Oxygen Delivery Method Room Air Room Air Positive well nourished and well developed General Appearance ED: well developed and NAD Neck full ROM and supple Back/Spine normal ROM and normal to inspection Extremity Extremity Narrative: There is a mildly tender erythematous cord that extends approximately 6 cm, it is in the proximal medial left calf radiating up to about the popliteal medial area not necessarily into the thigh, there is no firm cord, it is soft. Mildly tender. Nonfluctuant. No induration. No inguinal lymphadenopathy. No distal edema or calf tenderness away from the red area. Neuro oriented x3, no focal motor deficits and no sensory deficits noted Sensorium / Orientation: alert Psych mental status grossly normal and thought process normal Skin no wounds Skin Narrative: Redness medial left lower leg into the distal thigh see above, mildly tender MDM MDM MDM Narrative Medical decision making narrative: This is consistent with a superficial venous thrombosis. Patient would like an ultrasound to make sure she does not have a DVT. This was done, I reviewed the imaging and the sound technician supervisor preliminary, it is consistent with this a superficial venous thrombosis and there is no DVT. The SVT is present in the greater saphenous vein, and the most proximal aspect of the clot is more than 10 cm distal to the junction of the proximal aspect of the greater saphenous vein into the deep system, so anticoagulation not indicated. Reassured warm compresses advised abortive care and follow-up, no indication for anticoagulation at this time. Discharge Plan Triage Chief Complaint: Lower Extremity Injury ED Provider: Josh Gar Dx/Rx/DC Orders Clinical Impression: Acute superficial venous thrombosis of left lower extremity, Varicose veins of both lower extremities Instructions: Venous Thromboembolism Prescriptions: No Action spironolactone 25 mg tablet 25 mg PO QDAY ondansetron HCl 4 mg tablet 4 mg PO Q8H albuterol sulfate 90 mcg/actuation HFA aerosol inhaler inhalation ascorbic acid (vitamin C) [Vitamin C With Rajni Hips] 500 mg tablet PO guaifenesin [Mucus Relief ER] 600 mg tablet extended release 12hr PO [id number] 333-133-5 mg tablet 1 tab PO BID acetaminophen [Tylenol Arthritis Pain] 650 mg tablet extended release 650 mg PO Q12H cetirizine 10 MG tablet 10 mg PO DAILY sertraline 100 MG tablet 200 mg PO QHS simvastatin 40 MG tablet 40 mg PO QHS gabapentin 300 MG capsule 300 mg PO 5X/DAY losartan 50 MG tablet 100 mg PO DAILY fluticasone propionate 50 mcg/actuation spray,suspension 2 spray NASAL BID PRN (Reason: Allergies) cholecalciferol (vitamin D3) 1,000 UNIT tablet 5,000 unit PO DAILY alprazolam 1 MG tablet 1 mg PO DAILY PRN (Reason: Anxiety) carvedilol 6.25 MG tablet 6.25 mg PO BID Qty: 60 0RF omeprazole 40 mg capsule,delayed release(DR/EC) 40 mg PO BID Patient Comments: TAKE 1 CAPSULE BY MOUTH TWICE A DAY Primary Care Provider: Tamy Garcias Referrals: Tamy Garcias MD [Primary Care Provider, Internal Medicine] - 1 Week Print Language: Italian Disposition Disposition: Home, Self Care
[2025-05-22 12:14] VITALS: BP 136/112; PULSE 113; RESP 18; TEMP 36.7; O2SAT 98
== END 2025-05-22 12:40 | disposition home or self-care (01) ==
LOC: ED 12:20
PROVIDERS: Emergency Provider Emergency Medicine; PCP Internal Medicine; Visit Provider Emergency Medicine
DX: I82.812 Embolism and thrombosis of superficial veins of left lower extremity (principal); C50.919 Malignant neoplasm of unspecified site of unspecified female breast; Z87.891 Personal history of nicotine dependence; E78.5 Hyperlipidemia, unspecified; I10 Essential (primary) hypertension; I83.93 Asymptomatic varicose veins of bilateral lower extremities; Z79.899 Other long term (current) drug therapy; F41.8 Other specified anxiety disorders; J45.909 Unspecified asthma, uncomplicated; Z79.51 Long term (current) use of inhaled steroids; Z98.51 Tubal ligation status
CPT/HCPCS: 93971; 99282